=== PATIENT | female | born 1950 | race Caucasian/White ===

== ENCOUNTER 2016-07-29 08:29 | Outpatient (CLI) | payer OTHER | END 2016-07-29 08:30 | disposition home or self-care (01) | LOC: BURLAB 08:29 | PROVIDERS: ATTEND Family Medicine | DX: A09 Infectious gastroenteritis and colitis, unspecified (principal) | CPT/HCPCS: 82272; 83630; 87015; 87045; 87046; 87324; 87449; 87899 ==

== ENCOUNTER 2019-05-22 16:52 | Inpatient (IN) | payer OTHER ==
[2019-05-22] MEDS ORDERED: Meclizine HCl 25 MG TAB PO PRN (19:56)
[2019-05-22] MEDS ORDERED: Nitroglycerin 0.4 MG TAB (25 Tab Bottle) SL PRN (19:56)
[2019-05-22] MEDS ORDERED: Calcium Carbonate 500 MG ChewTAB PO PRN (19:56)
[2019-05-22] MEDS: Polyethylene Glycol 3350 17 GM Packet PO SCH (20:51)
[2019-05-22] MEDS: HYDROcodone/Acetaminophen 5/325 mg Tablet PO PRN (20:51)
[2019-05-22] MEDS: Docusate 100 MG CAP PO SCH (20:53)
[2019-05-22] MEDS: metFORMIN XR 500 MG TAB PO SCH (20:54)
[2019-05-22] MEDS: Atorvastatin Calcium 40 MG TAB PO SCH (20:54)
[2019-05-22] MEDS: Lisinopril 5 MG TAB PO SCH (20:54)
[2019-05-22] MEDS: Lantus 1000 UNITS/10 ML VIAL SC SCH (20:55)
[2019-05-22] MEDS: Cyclobenzaprine 10 MG TAB PO SCH (20:55)
[2019-05-22] MEDS ORDERED: Fluticasone Propionate Nasal Spray 16 gm Bottle NASAL PRN (21:00)
[2019-05-22 22:15] LABS: Bilirubin Negative (Negative); Blood, Urine Small (Negative); Clarity Cloudy (Clear); Glucose, Urine (Dipstick) 500 mg/dL (Negative); Leukocyte Moderate (Negative); Nitrite Negative (Negative); Protein, Urine (Dipstick) Negative (Neg-Trace); Urobilinogen 0.2 mg/dL (Less than 2)
[2019-05-22 22:19] LABS: Bacteria/HPF 4+ HPF (None Seen); Squamous Epithelial None Seen HPF (0-3); WBC/HPF Greater than 50 HPF (0-3)
[2019-05-22] MEDS: Zolpidem Tartrate 5 MG TAB PO SCH (23:28)
[2019-05-23] MEDS: Levothyroxine Sodium 25 MCG TAB PO SCH (05:27)
[2019-05-23] MEDS: Levothyroxine Sodium 100 MCG TAB PO SCH (05:27)
[2019-05-23] MEDS: Lisinopril 5 MG TAB PO SCH ×2 (08:31→20:39)
[2019-05-23] MEDS: Polyethylene Glycol 3350 17 GM Packet PO SCH ×2 (08:31→20:33)
[2019-05-23] MEDS: Gabapentin 100 MG CAP PO SCH (08:32)
[2019-05-23] MEDS: Ferrous Sulfate 325 MG TAB PO SCH ×2 (08:33→16:51)
[2019-05-23] MEDS: Famotidine 20 MG TAB PO SCH (08:33)
[2019-05-23] MEDS: Multivitamin W/ Minerals 1 TAB PO SCH (08:33)
[2019-05-23] MEDS: Spironolactone 25 MG TAB PO SCH (08:33)
[2019-05-23] MEDS: Anastrozole 1 MG TAB PO SCH (08:33)
[2019-05-23] MEDS: Carvedilol 3.125 MG TAB PO SCH ×2 (08:33→16:51)
[2019-05-23] MEDS: Aspirin Chewable 81 MG TAB PO SCH (08:34)
[2019-05-23] MEDS: metFORMIN XR 500 MG TAB PO SCH ×2 (08:34→20:36)
[2019-05-23] MEDS: Cyclobenzaprine 10 MG TAB PO SCH ×2 (08:34→20:38)
[2019-05-23] MEDS: Furosemide 40 MG TAB PO SCH (08:34)
[2019-05-23] MEDS: Docusate 100 MG CAP PO SCH ×2 (08:42→20:38)
[2019-05-23] MEDS: HYDROcodone/Acetaminophen 5/325 mg Tablet PO PRN ×3 (08:47→20:34)
[2019-05-23] MEDS ORDERED: Loratadine 10 MG TAB PO PRN (09:00)
[2019-05-23] MEDS: Lantus 1000 UNITS/10 ML VIAL SC SCH ×2 (10:53→20:29)
[2019-05-23] MEDS: Benzonatate 100 MG CAP PO PRN ×3 (13:10→20:34)
[2019-05-23] MEDS ORDERED: Ciprofloxacin 500 MG TAB PO SCH (14:30)
[2019-05-23] MEDS: Ciprofloxacin 500 MG TAB PO SCH (20:37)
[2019-05-23] MEDS: Atorvastatin Calcium 40 MG TAB PO SCH (20:38)
[2019-05-23] MEDS: Zolpidem Tartrate 5 MG TAB PO SCH (20:39)
[2019-05-23] MEDS ORDERED: FLU VACC TS2019-20(65YR UP)/PF 180 MCG/0.5 ML SYRINGE IM ONE ×2 (20:44→21:00)
[2019-05-24] MEDS: Levothyroxine Sodium 100 MCG TAB PO SCH (05:36)
[2019-05-24] MEDS: Levothyroxine Sodium 25 MCG TAB PO SCH (05:36)
[2019-05-24] MEDS: Ciprofloxacin 500 MG TAB PO SCH ×2 (05:36→20:09)
[2019-05-24] MEDS: Lisinopril 5 MG TAB PO SCH ×2 (08:21→20:12)
[2019-05-24] MEDS: Furosemide 40 MG TAB PO SCH (08:21)
[2019-05-24] MEDS: Multivitamin W/ Minerals 1 TAB PO SCH (08:21)
[2019-05-24] MEDS: Ferrous Sulfate 325 MG TAB PO SCH ×2 (08:22→16:51)
[2019-05-24] MEDS: metFORMIN XR 500 MG TAB PO SCH ×2 (08:22→20:08)
[2019-05-24] MEDS: Famotidine 20 MG TAB PO SCH (08:22)
[2019-05-24] MEDS: Aspirin Chewable 81 MG TAB PO SCH (08:23)
[2019-05-24] MEDS: Spironolactone 25 MG TAB PO SCH (08:23)
[2019-05-24] MEDS: Anastrozole 1 MG TAB PO SCH (08:23)
[2019-05-24] MEDS: Carvedilol 3.125 MG TAB PO SCH ×2 (08:23→16:51)
[2019-05-24] MEDS: Cyclobenzaprine 10 MG TAB PO SCH ×2 (08:24→20:08)
[2019-05-24] MEDS: Docusate 100 MG CAP PO SCH ×2 (08:24→20:10)
[2019-05-24] MEDS: Polyethylene Glycol 3350 17 GM Packet PO SCH ×2 (08:25→20:11)
[2019-05-24] MEDS: Gabapentin 100 MG CAP PO SCH (08:26)
[2019-05-24] MEDS: Lantus 1000 UNITS/10 ML VIAL SC SCH ×2 (08:31→20:10)
[2019-05-24] MEDS: Benzonatate 100 MG CAP PO PRN ×2 (08:36→20:16)
[2019-05-24] MEDS: HYDROcodone/Acetaminophen 5/325 mg Tablet PO PRN ×3 (08:38→20:17)
[2019-05-24] MEDS: Atorvastatin Calcium 40 MG TAB PO SCH (20:08)
[2019-05-24] MEDS: Zolpidem Tartrate 5 MG TAB PO SCH (20:13)
[2019-05-25] MEDS: Ciprofloxacin 500 MG TAB PO SCH ×2 (06:07→21:37)
[2019-05-25] MEDS: Levothyroxine Sodium 25 MCG TAB PO SCH (06:08)
[2019-05-25] MEDS: Levothyroxine Sodium 100 MCG TAB PO SCH (06:08)
[2019-05-25] MEDS: Polyethylene Glycol 3350 17 GM Packet PO SCH ×2 (08:40→21:35)
[2019-05-25] MEDS: Benzonatate 100 MG CAP PO PRN ×2 (08:42→21:38)
[2019-05-25] MEDS: Multivitamin W/ Minerals 1 TAB PO SCH (08:44)
[2019-05-25] MEDS: Gabapentin 100 MG CAP PO SCH (08:44)
[2019-05-25] MEDS: metFORMIN XR 500 MG TAB PO SCH ×2 (08:44→21:37)
[2019-05-25] MEDS: Famotidine 20 MG TAB PO SCH (08:45)
[2019-05-25] MEDS: Anastrozole 1 MG TAB PO SCH (08:45)
[2019-05-25] MEDS: Cyclobenzaprine 10 MG TAB PO SCH ×2 (08:45→21:40)
[2019-05-25] MEDS: Ferrous Sulfate 325 MG TAB PO SCH ×2 (08:45→17:13)
[2019-05-25] MEDS: Furosemide 40 MG TAB PO SCH (08:46)
[2019-05-25] MEDS: Aspirin Chewable 81 MG TAB PO SCH (08:46)
[2019-05-25] MEDS: Docusate 100 MG CAP PO SCH ×2 (08:46→21:41)
[2019-05-25] MEDS: Spironolactone 25 MG TAB PO SCH (08:46)
[2019-05-25] MEDS: Lisinopril 5 MG TAB PO SCH ×2 (08:47→21:41)
[2019-05-25] MEDS: Carvedilol 3.125 MG TAB PO SCH ×2 (08:47→17:13)
[2019-05-25] MEDS: HYDROcodone/Acetaminophen 5/325 mg Tablet PO PRN ×3 (08:52→21:38)
[2019-05-25] MEDS: Lantus 1000 UNITS/10 ML VIAL SC SCH ×2 (08:56→21:32)
[2019-05-25 11:45] LABS: Anion Gap 18 mmol/L (10-20); BUN (Urea Nitrogen) 20 mg/dL (9.8-20.1); Calc. Creatinine Clearance 70 mL/min (70-130); Calcium 9.4 mg/dL (7.8-10.44); Carbon Dioxide 26 mmol/L (23-31); Chloride 100 mmol/L (98-107); Estimated GFR-MDRD 49; Glucose 145 mg/dL (80-115); Potassium 4.7 mmol/L (3.5-5.1); Sodium 139 mmol/L (136-145)
[2019-05-25] MEDS: Atorvastatin Calcium 40 MG TAB PO SCH (21:37)
[2019-05-25] MEDS: Zolpidem Tartrate 5 MG TAB PO SCH (21:38)
[2019-05-26] MEDS: Levothyroxine Sodium 100 MCG TAB PO SCH (05:56)
[2019-05-26] MEDS: Levothyroxine Sodium 25 MCG TAB PO SCH (05:56)
[2019-05-26] MEDS: Ciprofloxacin 500 MG TAB PO SCH ×2 (05:56→21:46)
[2019-05-26] MEDS: Polyethylene Glycol 3350 17 GM Packet PO SCH ×2 (08:49→21:59)
[2019-05-26] MEDS: Benzonatate 100 MG CAP PO PRN ×2 (08:50→21:48)
[2019-05-26] MEDS: Multivitamin W/ Minerals 1 TAB PO SCH (08:50)
[2019-05-26] MEDS: Aspirin Chewable 81 MG TAB PO SCH (08:51)
[2019-05-26] MEDS: Furosemide 40 MG TAB PO SCH (08:52)
[2019-05-26] MEDS: Ferrous Sulfate 325 MG TAB PO SCH ×2 (08:52→17:24)
[2019-05-26] MEDS: Spironolactone 25 MG TAB PO SCH (08:52)
[2019-05-26] MEDS: Anastrozole 1 MG TAB PO SCH (08:56)
[2019-05-26] MEDS: Docusate 100 MG CAP PO SCH ×2 (08:56→21:48)
[2019-05-26] MEDS: metFORMIN XR 500 MG TAB PO SCH ×2 (08:56→21:47)
[2019-05-26] MEDS: Cyclobenzaprine 10 MG TAB PO SCH ×2 (08:56→21:46)
[2019-05-26] MEDS: Carvedilol 3.125 MG TAB PO SCH ×2 (08:57→17:24)
[2019-05-26] MEDS: Lisinopril 5 MG TAB PO SCH ×2 (08:57→21:45)
[2019-05-26] MEDS: Gabapentin 100 MG CAP PO SCH (08:57)
[2019-05-26] MEDS: Famotidine 20 MG TAB PO SCH (08:57)
[2019-05-26] MEDS: Lantus 1000 UNITS/10 ML VIAL SC SCH ×2 (08:59→21:44)
[2019-05-26] MEDS: HYDROcodone/Acetaminophen 5/325 mg Tablet PO PRN ×2 (12:25→21:49)
[2019-05-26] MEDS: Zolpidem Tartrate 5 MG TAB PO SCH (21:47)
[2019-05-26] MEDS: Atorvastatin Calcium 40 MG TAB PO SCH (21:48)
[2019-05-27] MEDS: Levothyroxine Sodium 100 MCG TAB PO SCH (06:12)
[2019-05-27] MEDS: Ciprofloxacin 500 MG TAB PO SCH ×2 (06:12→20:59)
[2019-05-27] MEDS: Levothyroxine Sodium 25 MCG TAB PO SCH (06:12)
[2019-05-27] MEDS: Polyethylene Glycol 3350 17 GM Packet PO SCH ×2 (08:44→20:55)
[2019-05-27] MEDS: Lantus 1000 UNITS/10 ML VIAL SC SCH ×2 (08:46→20:56)
[2019-05-27] MEDS: Anastrozole 1 MG TAB PO SCH (08:47)
[2019-05-27] MEDS: Cyclobenzaprine 10 MG TAB PO SCH ×2 (08:47→20:58)
[2019-05-27] MEDS: Gabapentin 100 MG CAP PO SCH (08:48)
[2019-05-27] MEDS: metFORMIN XR 500 MG TAB PO SCH ×2 (08:48→21:00)
[2019-05-27] MEDS: Docusate 100 MG CAP PO SCH ×2 (08:48→21:00)
[2019-05-27] MEDS: Aspirin Chewable 81 MG TAB PO SCH (08:48)
[2019-05-27] MEDS: Ferrous Sulfate 325 MG TAB PO SCH ×2 (08:48→17:40)
[2019-05-27] MEDS: Multivitamin W/ Minerals 1 TAB PO SCH (08:48)
[2019-05-27] MEDS: Lisinopril 5 MG TAB PO SCH ×2 (08:52→21:01)
[2019-05-27] MEDS: Furosemide 40 MG TAB PO SCH (08:52)
[2019-05-27] MEDS: Carvedilol 3.125 MG TAB PO SCH ×2 (08:53→17:40)
[2019-05-27] MEDS: Famotidine 20 MG TAB PO SCH (08:53)
[2019-05-27] MEDS: Spironolactone 25 MG TAB PO SCH (08:53)
[2019-05-27] MEDS: HYDROcodone/Acetaminophen 5/325 mg Tablet PO PRN ×2 (13:14→21:01)
[2019-05-27] MEDS: Benzonatate 100 MG CAP PO PRN ×2 (13:16→20:58)
[2019-05-27] MEDS: Zolpidem Tartrate 5 MG TAB PO SCH (20:58)
[2019-05-27] MEDS: Atorvastatin Calcium 40 MG TAB PO SCH (21:00)
[2019-05-28] MEDS: Ciprofloxacin 500 MG TAB PO SCH (05:42)
[2019-05-28] MEDS: Levothyroxine Sodium 100 MCG TAB PO SCH (05:42)
[2019-05-28] MEDS: Levothyroxine Sodium 25 MCG TAB PO SCH (05:42)
[2019-05-28] MEDS: Polyethylene Glycol 3350 17 GM Packet PO SCH ×2 (08:44→20:54)
[2019-05-28] MEDS: Ferrous Sulfate 325 MG TAB PO SCH ×2 (08:45→17:17)
[2019-05-28] MEDS: Lisinopril 5 MG TAB PO SCH ×2 (08:46→20:52)
[2019-05-28] MEDS: Gabapentin 100 MG CAP PO SCH (08:46)
[2019-05-28] MEDS: Docusate 100 MG CAP PO SCH ×2 (08:46→20:54)
[2019-05-28] MEDS: Anastrozole 1 MG TAB PO SCH (08:46)
[2019-05-28] MEDS: Cyclobenzaprine 10 MG TAB PO SCH ×2 (08:46→20:51)
[2019-05-28] MEDS: Multivitamin W/ Minerals 1 TAB PO SCH (08:46)
[2019-05-28] MEDS: metFORMIN XR 500 MG TAB PO SCH ×2 (08:46→20:51)
[2019-05-28] MEDS: Carvedilol 3.125 MG TAB PO SCH ×2 (08:46→17:17)
[2019-05-28] MEDS: Furosemide 40 MG TAB PO SCH (08:47)
[2019-05-28] MEDS: Famotidine 20 MG TAB PO SCH (08:48)
[2019-05-28] MEDS: Spironolactone 25 MG TAB PO SCH (08:48)
[2019-05-28] MEDS: Aspirin Chewable 81 MG TAB PO SCH (08:48)
[2019-05-28] MEDS: Lantus 1000 UNITS/10 ML VIAL SC SCH ×2 (08:51→20:59)
[2019-05-28] MEDS: HYDROcodone/Acetaminophen 5/325 mg Tablet PO PRN ×2 (08:54→17:16)
[2019-05-28] MEDS: Benzonatate 100 MG CAP PO PRN (17:17)
[2019-05-28] MEDS: Zolpidem Tartrate 5 MG TAB PO SCH (20:51)
[2019-05-28] MEDS: Atorvastatin Calcium 40 MG TAB PO SCH (20:53)
[2019-05-29] MEDS: Levothyroxine Sodium 25 MCG TAB PO SCH (05:38)
[2019-05-29] MEDS: Levothyroxine Sodium 100 MCG TAB PO SCH (05:38)
[2019-05-29 07:06] LABS: Anion Gap 17 mmol/L (10-20); BUN (Urea Nitrogen) 19 mg/dL (9.8-20.1); Calc. Creatinine Clearance 84 mL/min (70-130); Calcium 9.8 mg/dL (7.8-10.44); Carbon Dioxide 27 mmol/L (23-31); Chloride 105 mmol/L (98-107); Estimated GFR-MDRD 62; Potassium 3.9 mmol/L (3.5-5.1); Sodium 145 mmol/L (136-145)
[2019-05-29 07:52] LABS: Glucose 59 mg/dL (80-115)
[2019-05-29] MEDS: Lisinopril 5 MG TAB PO SCH ×2 (08:05→20:34)
[2019-05-29] MEDS: Polyethylene Glycol 3350 17 GM Packet PO SCH ×2 (08:05→20:33)
[2019-05-29] MEDS: Aspirin Chewable 81 MG TAB PO SCH (08:06)
[2019-05-29] MEDS: Multivitamin W/ Minerals 1 TAB PO SCH (08:06)
[2019-05-29] MEDS: Ferrous Sulfate 325 MG TAB PO SCH ×2 (08:06→17:11)
[2019-05-29] MEDS: Docusate 100 MG CAP PO SCH ×2 (08:06→20:36)
[2019-05-29] MEDS: Cyclobenzaprine 10 MG TAB PO SCH ×2 (08:06→21:10)
[2019-05-29] MEDS: Furosemide 40 MG TAB PO SCH (08:07)
[2019-05-29] MEDS: Spironolactone 25 MG TAB PO SCH (08:07)
[2019-05-29] MEDS: Anastrozole 1 MG TAB PO SCH (08:07)
[2019-05-29] MEDS: Carvedilol 3.125 MG TAB PO SCH ×2 (08:07→17:11)
[2019-05-29] MEDS: Gabapentin 100 MG CAP PO SCH (08:07)
[2019-05-29] MEDS: metFORMIN XR 500 MG TAB PO SCH ×2 (08:07→20:33)
[2019-05-29] MEDS: Famotidine 20 MG TAB PO SCH (08:07)
[2019-05-29] MEDS: Lantus 1000 UNITS/10 ML VIAL SC SCH ×2 (08:08→21:24)
[2019-05-29] MEDS: HYDROcodone/Acetaminophen 5/325 mg Tablet PO PRN ×2 (11:57→17:19)
[2019-05-29] MEDS: Atorvastatin Calcium 40 MG TAB PO SCH (20:33)
[2019-05-29] MEDS: Zolpidem Tartrate 5 MG TAB PO SCH (21:10)
[2019-05-29] MEDS ORDERED: Lantus 1000 UNITS/10 ML VIAL SC SCH (21:30)
[2019-05-30] MEDS: Levothyroxine Sodium 25 MCG TAB PO SCH (05:53)
[2019-05-30] MEDS: Levothyroxine Sodium 100 MCG TAB PO SCH (05:53)
[2019-05-30] MEDS: Multivitamin W/ Minerals 1 TAB PO SCH (08:30)
[2019-05-30] MEDS: Polyethylene Glycol 3350 17 GM Packet PO SCH ×2 (08:30→21:18)
[2019-05-30] MEDS: Ferrous Sulfate 325 MG TAB PO SCH ×2 (08:32→17:47)
[2019-05-30] MEDS: Spironolactone 25 MG TAB PO SCH (08:33)
[2019-05-30] MEDS: Carvedilol 3.125 MG TAB PO SCH ×2 (08:33→17:48)
[2019-05-30] MEDS: Furosemide 40 MG TAB PO SCH (08:33)
[2019-05-30] MEDS: Aspirin Chewable 81 MG TAB PO SCH (08:33)
[2019-05-30] MEDS: Famotidine 20 MG TAB PO SCH (08:33)
[2019-05-30] MEDS: metFORMIN XR 500 MG TAB PO SCH ×2 (08:34→21:19)
[2019-05-30] MEDS: Gabapentin 100 MG CAP PO SCH (08:34)
[2019-05-30] MEDS: Docusate 100 MG CAP PO SCH ×2 (08:34→21:19)
[2019-05-30] MEDS: Anastrozole 1 MG TAB PO SCH (08:34)
[2019-05-30] MEDS: Cyclobenzaprine 10 MG TAB PO SCH ×2 (08:35→21:19)
[2019-05-30] MEDS: Lisinopril 5 MG TAB PO SCH ×2 (08:39→21:19)
[2019-05-30] MEDS: Lantus 1000 UNITS/10 ML VIAL SC SCH ×2 (08:40→21:21)
[2019-05-30] MEDS: HYDROcodone/Acetaminophen 5/325 mg Tablet PO PRN (08:45)
[2019-05-30 10:37] VITALS: BMI 34.6
[2019-05-30] MEDS: Benzonatate 100 MG CAP PO PRN (17:47)
[2019-05-30] MEDS ORDERED: Atorvastatin Calcium 40 MG TAB PO SCH (20:30)
[2019-05-30] MEDS: Zolpidem Tartrate 5 MG TAB PO SCH (21:19)
[2019-05-30] MEDS: Atorvastatin Calcium 40 MG TAB PO SCH (21:19)
[2019-05-31] MEDS: Levothyroxine Sodium 25 MCG TAB PO SCH (05:35)
[2019-05-31] MEDS: Levothyroxine Sodium 100 MCG TAB PO SCH (05:35)
[2019-05-31] MEDS: Multivitamin W/ Minerals 1 TAB PO SCH (08:02)
[2019-05-31] MEDS: Cyclobenzaprine 10 MG TAB PO SCH ×2 (08:02→20:20)
[2019-05-31] MEDS: metFORMIN XR 500 MG TAB PO SCH ×2 (08:02→20:17)
[2019-05-31] MEDS: Anastrozole 1 MG TAB PO SCH (08:04)
[2019-05-31] MEDS: Lisinopril 5 MG TAB PO SCH ×2 (08:04→20:18)
[2019-05-31] MEDS: Famotidine 20 MG TAB PO SCH (08:04)
[2019-05-31] MEDS: Spironolactone 25 MG TAB PO SCH (08:04)
[2019-05-31] MEDS: Aspirin Chewable 81 MG TAB PO SCH (08:06)
[2019-05-31] MEDS: Gabapentin 100 MG CAP PO SCH (08:06)
[2019-05-31] MEDS: Ferrous Sulfate 325 MG TAB PO SCH ×2 (08:06→17:47)
[2019-05-31] MEDS: Carvedilol 3.125 MG TAB PO SCH ×2 (08:07→17:47)
[2019-05-31] MEDS: Docusate 100 MG CAP PO SCH ×2 (08:12→20:20)
[2019-05-31] MEDS: Furosemide 40 MG TAB PO SCH (08:12)
[2019-05-31] MEDS: Lantus 1000 UNITS/10 ML VIAL SC SCH ×2 (08:13→20:24)
[2019-05-31] MEDS: Polyethylene Glycol 3350 17 GM Packet PO SCH ×2 (08:13→20:21)
[2019-05-31] MEDS: HYDROcodone/Acetaminophen 5/325 mg Tablet PO PRN ×2 (12:46→20:19)
[2019-05-31] MEDS: Atorvastatin Calcium 40 MG TAB PO SCH (20:17)
[2019-05-31] MEDS: Zolpidem Tartrate 5 MG TAB PO SCH (20:17)
[2019-06-01] MEDS: Levothyroxine Sodium 25 MCG TAB PO SCH ×2 (05:36→05:37)
[2019-06-01] MEDS: Levothyroxine Sodium 100 MCG TAB PO SCH (05:37)
[2019-06-01 05:53] VITALS: TEMP 98
[2019-06-01] MEDS: Lantus 1000 UNITS/10 ML VIAL SC SCH (08:32)
[2019-06-01] MEDS: Ferrous Sulfate 325 MG TAB PO SCH (08:35)
[2019-06-01] MEDS: Spironolactone 25 MG TAB PO SCH (08:35)
[2019-06-01] MEDS: Multivitamin W/ Minerals 1 TAB PO SCH (08:35)
[2019-06-01] MEDS: metFORMIN XR 500 MG TAB PO SCH (08:36)
[2019-06-01] MEDS: Carvedilol 3.125 MG TAB PO SCH (08:37)
[2019-06-01] MEDS: Lisinopril 5 MG TAB PO SCH (08:37)
[2019-06-01] MEDS: Famotidine 20 MG TAB PO SCH (08:38)
[2019-06-01] MEDS: Furosemide 40 MG TAB PO SCH (08:39)
[2019-06-01] MEDS: Aspirin Chewable 81 MG TAB PO SCH (08:39)
[2019-06-01] MEDS: Gabapentin 100 MG CAP PO SCH (08:40)
[2019-06-01] MEDS: Cyclobenzaprine 10 MG TAB PO SCH (08:40)
[2019-06-01] MEDS: Anastrozole 1 MG TAB PO SCH (08:40)
[2019-06-01] MEDS: Docusate 100 MG CAP PO SCH (08:41)
[2019-06-01] MEDS: Polyethylene Glycol 3350 17 GM Packet PO SCH (08:41)
[2019-06-01 08:50] VITALS: BP 140/61
== END 2019-06-01 11:30 | disposition home or self-care (01) | DRG 949 ==
LOC: BURMED 18:40
PROVIDERS: ADMIT Family Medicine; ATTEND Family Medicine
DX: Z48.812 Encounter for surgical aftercare following surgery on the circulatory system (principal); I13.0 Hypertensive heart and chronic kidney disease with heart failure and stage 1 through stage 4 chronic kidney disease, or unspecified chronic kidney disease; D62 Acute posthemorrhagic anemia; N17.9 Acute kidney failure, unspecified; Z96.653 Presence of artificial knee joint, bilateral; D72.829 Elevated white blood cell count, unspecified; M54.2 Cervicalgia; G89.29 Other chronic pain; I11.0 Hypertensive heart disease with heart failure; N18.3 Chronic kidney disease, stage 3 (moderate); I25.5 Ischemic cardiomyopathy; E11.22 Type 2 diabetes mellitus with diabetic chronic kidney disease; E11.649 Type 2 diabetes mellitus with hypoglycemia without coma; I44.7 Left bundle-branch block, unspecified; E78.00 Pure hypercholesterolemia, unspecified; Z90.13 Acquired absence of bilateral breasts and nipples; Z95.1 Presence of aortocoronary bypass graft; G47.00 Insomnia, unspecified
CPT/HCPCS: 36415; 36416; 80048; 81003; 81015; 90471; 90662; G0008; J1815

== ENCOUNTER 2019-08-08 08:36 | Outpatient (CLI) | payer OTHER ==
[2019-08-08 09:05] LABS: Anion Gap 17 mmol/L (10-20); BUN (Urea Nitrogen) 33 mg/dL (9.8-20.1); Calc. Creatinine Clearance 0 mL/min (70-130); Calcium 9.6 mg/dL (7.8-10.44); Carbon Dioxide 28 mmol/L (23-31); Chloride 101 mmol/L (98-107); Estimated GFR-MDRD 46; Glucose 184 mg/dL (80-115); Potassium 3.9 mmol/L (3.5-5.1); Sodium 142 mmol/L (136-145)
--- NOTE | 2019-08-08 17:04 | RAD ---
RIGHT HIP TWO VIEWS: 08/08/19 No fracture or area of bony destruction was seen. The joint space is normal in width. Some bony spurr ing is beginning around the joint but is mild in degree. The adjacent pubic ring appears intact. The re is irregularity of the lesser trochanter indicating there may have been old trauma to the attachme nt of the psoas major muscle here. IMPRESSION: Minor degenerative change. POS: HOME
== END 2019-08-08 08:37 | disposition home or self-care (01) ==
LOC: BURRAD 08:36
PROVIDERS: ATTEND Family Medicine
DX: I42.9 Cardiomyopathy, unspecified (principal); M25.551 Pain in right hip; M16.11 Unilateral primary osteoarthritis, right hip
CPT/HCPCS: 36415; 80048

== ENCOUNTER 2020-02-15 13:36 | Inpatient (IN) | payer OTHER, MEDICARE ==
[2020-02-15 16:37] VITALS: BMI 33.5
[2020-02-15] MEDS ORDERED: Nitroglycerin 0.4 MG TAB (25 Tab Bottle) SL PRN (16:55)
[2020-02-15] MEDS ORDERED: Meclizine HCl 25 MG TAB PO PRN (16:55)
[2020-02-15] MEDS ORDERED: Benzonatate 100 MG CAP PO PRN (16:55)
[2020-02-15] MEDS ORDERED: Dextrose 50% Abboject 50 ML SYRINGE SLOW IVP PRN (16:58)
[2020-02-15] MEDS ORDERED: Dextrose 5% in Water 1,000 ML IV PRN (16:58)
[2020-02-15] MEDS: Ferrous Sulfate 325 MG TAB PO SCH (17:48)
[2020-02-15] MEDS: Aspirin Chewable 81 MG TAB PO SCH (17:48)
[2020-02-15] MEDS: HumaLOG 300 UNITS/3 ML VIAL SC PRN ×2 (17:48→22:14)
[2020-02-15] MEDS: Carvedilol 3.125 MG TAB PO SCH (17:51)
[2020-02-15] MEDS ORDERED: Acetaminophen 500 MG TAB PO SCH (18:00)
[2020-02-15] MEDS: Zolpidem Tartrate 5 MG TAB PO SCH (21:12)
[2020-02-15] MEDS: metFORMIN XR 500 MG TAB PO SCH (21:12)
[2020-02-15] MEDS: Ascorbic Acid 500 mg Chewable Tablet PO SCH (21:12)
[2020-02-15] MEDS: Cholecalciferol 1,000 UNITS (25 MCG) TAB PO SCH (21:13)
[2020-02-15] MEDS: Atorvastatin Calcium 40 MG TAB PO SCH (21:13)
[2020-02-15] MEDS: Gabapentin 300 MG CAP PO SCH (21:13)
[2020-02-15] MEDS: Cyclobenzaprine 10 MG TAB PO SCH (21:13)
[2020-02-15] MEDS: Polyethylene Glycol 3350 17 GM Packet PO SCH (21:14)
[2020-02-15] MEDS ORDERED: HYDROcodone/Acetaminophen 5/325 mg Tablet PO SCH (22:15)
[2020-02-16] MEDS: traMADol HCl 50 MG TAB PO SCH ×5 (00:32→23:55)
[2020-02-16] MEDS: Acetaminophen 500 MG TAB PO SCH ×5 (00:32→23:56)
[2020-02-16] MEDS: Levothyroxine Sodium 25 MCG TAB PO SCH (05:52)
[2020-02-16] MEDS: Levothyroxine Sodium 112 MCG TAB PO SCH (05:52)
[2020-02-16] MEDS ORDERED: Lantus 1000 UNITS/10 ML VIAL SC SCH (09:00)
[2020-02-16] MEDS ORDERED: Levothyroxine Sodium 100 MCG TAB PO SCH (09:00)
[2020-02-16] MEDS: Triamterene/Hydrochlorothiazide 37.5 mg/25 mg Tablet PO SCH (10:20)
[2020-02-16] MEDS: Multivitamin W/ Minerals 1 TAB PO SCH (10:20)
[2020-02-16] MEDS: Ubidecarenone 50 MG CAP PO SCH (10:20)
[2020-02-16] MEDS: Gabapentin 300 MG CAP PO SCH ×2 (10:21→20:39)
[2020-02-16] MEDS: Carvedilol 3.125 MG TAB PO SCH ×2 (10:21→17:37)
[2020-02-16] MEDS: metFORMIN XR 500 MG TAB PO SCH ×2 (10:21→20:40)
[2020-02-16] MEDS: Ascorbic Acid 500 mg Chewable Tablet PO SCH ×2 (10:22→20:41)
[2020-02-16] MEDS: Furosemide 20 MG TAB PO SCH (10:22)
[2020-02-16] MEDS: Spironolactone 25 MG TAB PO SCH (10:22)
[2020-02-16] MEDS: Cholecalciferol 1,000 UNITS (25 MCG) TAB PO SCH ×2 (10:22→20:40)
[2020-02-16] MEDS: Loratadine 10 MG TAB PO SCH (10:23)
[2020-02-16] MEDS: Anastrozole 1 MG TAB PO SCH (10:23)
[2020-02-16] MEDS: Ferrous Sulfate 325 MG TAB PO SCH ×2 (10:23→17:37)
[2020-02-16] MEDS: Calcium Carbonate + Vit D 500 MG TAB PO SCH (10:30)
[2020-02-16] MEDS: HumaLOG 300 UNITS/3 ML VIAL SC PRN ×4 (10:35→20:52)
[2020-02-16] MEDS: Aspirin Chewable 81 MG TAB PO SCH (17:38)
[2020-02-16] MEDS: Cyclobenzaprine 10 MG TAB PO SCH (20:40)
[2020-02-16] MEDS: Zolpidem Tartrate 5 MG TAB PO SCH (20:40)
[2020-02-16] MEDS: Atorvastatin Calcium 40 MG TAB PO SCH (20:41)
[2020-02-16] MEDS: Polyethylene Glycol 3350 17 GM Packet PO SCH (20:41)
[2020-02-17] MEDS: Acetaminophen 500 MG TAB PO SCH ×4 (05:37→23:51)
[2020-02-17] MEDS: Levothyroxine Sodium 25 MCG TAB PO SCH (05:37)
[2020-02-17] MEDS: Levothyroxine Sodium 112 MCG TAB PO SCH (05:37)
[2020-02-17] MEDS: traMADol HCl 50 MG TAB PO SCH ×4 (05:38→23:52)
[2020-02-17] MEDS: Cholecalciferol 1,000 UNITS (25 MCG) TAB PO SCH ×2 (09:10→20:51)
[2020-02-17] MEDS: Ubidecarenone 50 MG CAP PO SCH (09:11)
[2020-02-17] MEDS: Loratadine 10 MG TAB PO SCH (09:11)
[2020-02-17] MEDS: Anastrozole 1 MG TAB PO SCH (09:11)
[2020-02-17] MEDS: Gabapentin 300 MG CAP PO SCH ×2 (09:11→20:51)
[2020-02-17] MEDS: Triamterene/Hydrochlorothiazide 37.5 mg/25 mg Tablet PO SCH (09:12)
[2020-02-17] MEDS: metFORMIN XR 500 MG TAB PO SCH ×2 (09:12→20:50)
[2020-02-17] MEDS: Furosemide 20 MG TAB PO SCH (09:12)
[2020-02-17] MEDS: Carvedilol 3.125 MG TAB PO SCH ×2 (09:13→16:21)
[2020-02-17] MEDS: Ferrous Sulfate 325 MG TAB PO SCH ×2 (09:13→16:21)
[2020-02-17] MEDS: Spironolactone 25 MG TAB PO SCH (09:13)
[2020-02-17] MEDS: Ascorbic Acid 500 mg Chewable Tablet PO SCH ×2 (09:13→20:51)
[2020-02-17] MEDS: Multivitamin W/ Minerals 1 TAB PO SCH (09:13)
[2020-02-17] MEDS: Calcium Carbonate + Vit D 500 MG TAB PO SCH (09:15)
[2020-02-17] MEDS: HumaLOG 300 UNITS/3 ML VIAL SC PRN ×4 (09:17→20:49)
[2020-02-17] MEDS: Lantus 1000 UNITS/10 ML VIAL SC SCH (09:21)
[2020-02-17] MEDS: Aspirin Chewable 81 MG TAB PO SCH (16:21)
[2020-02-17] MEDS: Cyclobenzaprine 10 MG TAB PO SCH (20:50)
[2020-02-17] MEDS: Atorvastatin Calcium 40 MG TAB PO SCH (20:52)
[2020-02-17] MEDS: Zolpidem Tartrate 5 MG TAB PO SCH (20:52)
[2020-02-17] MEDS: Polyethylene Glycol 3350 17 GM Packet PO SCH (20:53)
[2020-02-18] MEDS: Levothyroxine Sodium 25 MCG TAB PO SCH (05:55)
[2020-02-18] MEDS: Levothyroxine Sodium 112 MCG TAB PO SCH (05:56)
[2020-02-18] MEDS: traMADol HCl 50 MG TAB PO SCH ×4 (05:56→23:49)
[2020-02-18] MEDS: Acetaminophen 500 MG TAB PO SCH ×4 (05:57→23:49)
[2020-02-18] MEDS: Triamterene/Hydrochlorothiazide 37.5 mg/25 mg Tablet PO SCH (09:02)
[2020-02-18] MEDS: Ubidecarenone 50 MG CAP PO SCH (09:02)
[2020-02-18] MEDS: Lantus 1000 UNITS/10 ML VIAL SC SCH (09:02)
[2020-02-18] MEDS: Carvedilol 3.125 MG TAB PO SCH ×2 (09:02→17:25)
[2020-02-18] MEDS: metFORMIN XR 500 MG TAB PO SCH ×2 (09:02→20:08)
[2020-02-18] MEDS: Spironolactone 25 MG TAB PO SCH (09:03)
[2020-02-18] MEDS: Furosemide 20 MG TAB PO SCH (09:03)
[2020-02-18] MEDS: Cholecalciferol 1,000 UNITS (25 MCG) TAB PO SCH ×2 (09:03→20:09)
[2020-02-18] MEDS: Ferrous Sulfate 325 MG TAB PO SCH ×2 (09:03→17:25)
[2020-02-18] MEDS: Multivitamin W/ Minerals 1 TAB PO SCH (09:03)
[2020-02-18] MEDS: Loratadine 10 MG TAB PO SCH (09:03)
[2020-02-18] MEDS: Gabapentin 300 MG CAP PO SCH ×2 (09:03→20:10)
[2020-02-18] MEDS: Ascorbic Acid 500 mg Chewable Tablet PO SCH ×2 (09:04→20:09)
[2020-02-18] MEDS: Calcium Carbonate + Vit D 500 MG TAB PO SCH (09:04)
[2020-02-18] MEDS: Anastrozole 1 MG TAB PO SCH (09:04)
[2020-02-18] MEDS: HumaLOG 300 UNITS/3 ML VIAL SC PRN ×3 (13:11→20:13)
[2020-02-18] MEDS: Aspirin Chewable 81 MG TAB PO SCH (17:24)
[2020-02-18] MEDS: Cyclobenzaprine 10 MG TAB PO SCH (20:09)
[2020-02-18] MEDS: Atorvastatin Calcium 40 MG TAB PO SCH (20:11)
[2020-02-18] MEDS: Polyethylene Glycol 3350 17 GM Packet PO SCH (20:12)
[2020-02-18] MEDS: Zolpidem Tartrate 5 MG TAB PO SCH (20:19)
[2020-02-19] MEDS: traMADol HCl 50 MG TAB PO SCH ×3 (06:19→16:23)
[2020-02-19] MEDS: Levothyroxine Sodium 25 MCG TAB PO SCH (06:19)
[2020-02-19] MEDS: Acetaminophen 500 MG TAB PO SCH ×3 (06:19→16:24)
[2020-02-19] MEDS: Levothyroxine Sodium 112 MCG TAB PO SCH (06:19)
[2020-02-19] MEDS: Cholecalciferol 1,000 UNITS (25 MCG) TAB PO SCH ×2 (09:07→20:34)
[2020-02-19] MEDS: metFORMIN XR 500 MG TAB PO SCH ×2 (09:09→20:34)
[2020-02-19] MEDS: Gabapentin 300 MG CAP PO SCH ×2 (09:09→20:34)
[2020-02-19] MEDS: Ubidecarenone 50 MG CAP PO SCH (09:10)
[2020-02-19] MEDS: Multivitamin W/ Minerals 1 TAB PO SCH (09:11)
[2020-02-19] MEDS: Ascorbic Acid 500 mg Chewable Tablet PO SCH ×2 (09:11→20:34)
[2020-02-19] MEDS: Ferrous Sulfate 325 MG TAB PO SCH ×2 (09:12→16:22)
[2020-02-19] MEDS: Spironolactone 25 MG TAB PO SCH (09:13)
[2020-02-19] MEDS: Furosemide 20 MG TAB PO SCH (09:13)
[2020-02-19] MEDS: Anastrozole 1 MG TAB PO SCH (09:13)
[2020-02-19] MEDS: Loratadine 10 MG TAB PO SCH (09:14)
[2020-02-19] MEDS: Carvedilol 3.125 MG TAB PO SCH ×2 (09:15→16:24)
[2020-02-19] MEDS: Lantus 1000 UNITS/10 ML VIAL SC SCH (09:21)
[2020-02-19] MEDS: Calcium Carbonate + Vit D 500 MG TAB PO SCH (09:22)
[2020-02-19] MEDS: Triamterene/Hydrochlorothiazide 37.5 mg/25 mg Tablet PO SCH (09:30)
[2020-02-19] MEDS: HumaLOG 300 UNITS/3 ML VIAL SC PRN (12:53)
[2020-02-19] MEDS: Aspirin Chewable 81 MG TAB PO SCH (16:24)
[2020-02-19] MEDS: Cyclobenzaprine 10 MG TAB PO SCH (20:34)
[2020-02-19] MEDS: Atorvastatin Calcium 40 MG TAB PO SCH (20:34)
[2020-02-19] MEDS: Polyethylene Glycol 3350 17 GM Packet PO SCH (20:35)
[2020-02-19] MEDS: Zolpidem Tartrate 5 MG TAB PO SCH (20:36)
[2020-02-19] MEDS ORDERED: HYDROcodone/Acetaminophen 5/325 mg Tablet PO SCH (21:30)
[2020-02-19] MEDS: traMADol HCl 50 MG TAB PO PRN (21:39)
[2020-02-20] MEDS: Acetaminophen 500 MG TAB PO SCH ×5 (00:33→23:22)
[2020-02-20] MEDS: traMADol HCl 50 MG TAB PO SCH ×5 (00:35→23:22)
[2020-02-20] MEDS: Levothyroxine Sodium 112 MCG TAB PO SCH (05:07)
[2020-02-20] MEDS: Levothyroxine Sodium 25 MCG TAB PO SCH (05:07)
[2020-02-20] MEDS: Ubidecarenone 50 MG CAP PO SCH (08:48)
[2020-02-20] MEDS: Anastrozole 1 MG TAB PO SCH (08:48)
[2020-02-20] MEDS: metFORMIN XR 500 MG TAB PO SCH ×2 (08:48→20:57)
[2020-02-20] MEDS: Triamterene/Hydrochlorothiazide 37.5 mg/25 mg Tablet PO SCH (08:48)
[2020-02-20] MEDS: Gabapentin 300 MG CAP PO SCH ×2 (08:49→20:57)
[2020-02-20] MEDS: Cholecalciferol 1,000 UNITS (25 MCG) TAB PO SCH ×2 (08:49→20:58)
[2020-02-20] MEDS: Ascorbic Acid 500 mg Chewable Tablet PO SCH ×2 (08:49→20:58)
[2020-02-20] MEDS: Loratadine 10 MG TAB PO SCH (08:49)
[2020-02-20] MEDS: Multivitamin W/ Minerals 1 TAB PO SCH (08:49)
[2020-02-20] MEDS: Ferrous Sulfate 325 MG TAB PO SCH ×2 (08:49→17:46)
[2020-02-20] MEDS: Spironolactone 25 MG TAB PO SCH (08:49)
[2020-02-20] MEDS: Carvedilol 3.125 MG TAB PO SCH ×2 (08:49→17:46)
[2020-02-20] MEDS: Calcium Carbonate + Vit D 500 MG TAB PO SCH (08:50)
[2020-02-20] MEDS: Furosemide 20 MG TAB PO SCH (08:50)
[2020-02-20] MEDS: Lantus 1000 UNITS/10 ML VIAL SC SCH (08:53)
[2020-02-20] MEDS: HumaLOG 300 UNITS/3 ML VIAL SC PRN ×2 (12:59→20:56)
[2020-02-20] MEDS: Aspirin Chewable 81 MG TAB PO SCH (17:46)
[2020-02-20] MEDS: Atorvastatin Calcium 40 MG TAB PO SCH (20:57)
[2020-02-20] MEDS: Zolpidem Tartrate 5 MG TAB PO SCH (20:58)
[2020-02-20] MEDS: Cyclobenzaprine 10 MG TAB PO SCH (20:58)
[2020-02-20] MEDS: Polyethylene Glycol 3350 17 GM Packet PO SCH (20:59)
[2020-02-21] MEDS: Acetaminophen 500 MG TAB PO SCH ×4 (05:41→23:59)
[2020-02-21] MEDS: traMADol HCl 50 MG TAB PO SCH ×4 (05:42→23:58)
[2020-02-21] MEDS: Levothyroxine Sodium 112 MCG TAB PO SCH (05:43)
[2020-02-21] MEDS: Levothyroxine Sodium 25 MCG TAB PO SCH (05:43)
[2020-02-21] MEDS: Lantus 1000 UNITS/10 ML VIAL SC SCH (09:40)
[2020-02-21] MEDS: Ubidecarenone 50 MG CAP PO SCH (09:44)
[2020-02-21] MEDS: Triamterene/Hydrochlorothiazide 37.5 mg/25 mg Tablet PO SCH (09:45)
[2020-02-21] MEDS: metFORMIN XR 500 MG TAB PO SCH ×3 (09:46→21:30)
[2020-02-21] MEDS: Cholecalciferol 1,000 UNITS (25 MCG) TAB PO SCH ×2 (09:46→21:31)
[2020-02-21] MEDS: Loratadine 10 MG TAB PO SCH (09:47)
[2020-02-21] MEDS: Multivitamin W/ Minerals 1 TAB PO SCH (09:47)
[2020-02-21] MEDS: Anastrozole 1 MG TAB PO SCH (09:47)
[2020-02-21] MEDS: Carvedilol 3.125 MG TAB PO SCH ×2 (09:47→18:50)
[2020-02-21] MEDS: Gabapentin 300 MG CAP PO SCH ×2 (09:47→21:28)
[2020-02-21] MEDS: Ferrous Sulfate 325 MG TAB PO SCH ×2 (09:47→18:48)
[2020-02-21] MEDS: Ascorbic Acid 500 mg Chewable Tablet PO SCH ×2 (09:48→21:31)
[2020-02-21] MEDS: Furosemide 20 MG TAB PO SCH (09:48)
[2020-02-21] MEDS: Spironolactone 25 MG TAB PO SCH (09:48)
[2020-02-21] MEDS: Calcium Carbonate + Vit D 500 MG TAB PO SCH (09:49)
[2020-02-21] MEDS: HumaLOG 300 UNITS/3 ML VIAL SC PRN (13:39)
[2020-02-21] MEDS: Aspirin Chewable 81 MG TAB PO SCH (18:48)
[2020-02-21] MEDS: Polyethylene Glycol 3350 17 GM Packet PO SCH (21:28)
[2020-02-21] MEDS: Zolpidem Tartrate 5 MG TAB PO SCH (21:30)
[2020-02-21] MEDS: Cyclobenzaprine 10 MG TAB PO SCH (21:30)
[2020-02-21] MEDS: Atorvastatin Calcium 40 MG TAB PO SCH (21:30)
[2020-02-22] MEDS: Levothyroxine Sodium 25 MCG TAB PO SCH (06:03)
[2020-02-22] MEDS: Acetaminophen 500 MG TAB PO SCH ×3 (06:04→20:09)
[2020-02-22] MEDS: traMADol HCl 50 MG TAB PO SCH ×3 (06:04→20:09)
[2020-02-22] MEDS: Levothyroxine Sodium 112 MCG TAB PO SCH (06:04)
[2020-02-22] MEDS: Lantus 1000 UNITS/10 ML VIAL SC SCH (09:05)
[2020-02-22] MEDS: metFORMIN XR 500 MG TAB PO SCH ×2 (09:06→21:05)
[2020-02-22] MEDS: Triamterene/Hydrochlorothiazide 37.5 mg/25 mg Tablet PO SCH (09:07)
[2020-02-22] MEDS: Cholecalciferol 1,000 UNITS (25 MCG) TAB PO SCH ×2 (09:07→21:04)
[2020-02-22] MEDS: Ubidecarenone 50 MG CAP PO SCH (09:07)
[2020-02-22] MEDS: Anastrozole 1 MG TAB PO SCH (09:08)
[2020-02-22] MEDS: Carvedilol 3.125 MG TAB PO SCH ×2 (09:09→15:42)
[2020-02-22] MEDS: Multivitamin W/ Minerals 1 TAB PO SCH (09:09)
[2020-02-22] MEDS: Gabapentin 300 MG CAP PO SCH ×2 (09:09→21:05)
[2020-02-22] MEDS: Ferrous Sulfate 325 MG TAB PO SCH ×2 (09:09→15:42)
[2020-02-22] MEDS: Ascorbic Acid 500 mg Chewable Tablet PO SCH ×2 (09:09→21:03)
[2020-02-22] MEDS: Spironolactone 25 MG TAB PO SCH (09:09)
[2020-02-22] MEDS: Loratadine 10 MG TAB PO SCH (09:09)
[2020-02-22] MEDS: Furosemide 20 MG TAB PO SCH (09:10)
[2020-02-22] MEDS: Calcium Carbonate + Vit D 500 MG TAB PO SCH (09:10)
[2020-02-22] MEDS: Aspirin Chewable 81 MG TAB PO SCH (15:42)
[2020-02-22] MEDS: Docusate 100 MG CAP PO PRN (15:44)
[2020-02-22] MEDS: Polyethylene Glycol 3350 17 GM Packet PO SCH (21:02)
[2020-02-22] MEDS: Atorvastatin Calcium 40 MG TAB PO SCH (21:03)
[2020-02-22] MEDS: Cyclobenzaprine 10 MG TAB PO SCH (21:05)
[2020-02-22] MEDS: Zolpidem Tartrate 5 MG TAB PO SCH (21:05)
[2020-02-23] MEDS: Acetaminophen 500 MG TAB PO SCH ×5 (00:59→19:08)
[2020-02-23] MEDS: traMADol HCl 50 MG TAB PO SCH ×4 (01:00→19:08)
[2020-02-23] MEDS: Levothyroxine Sodium 25 MCG TAB PO SCH (06:14)
[2020-02-23] MEDS: Levothyroxine Sodium 112 MCG TAB PO SCH (06:14)
[2020-02-23] MEDS: metFORMIN XR 500 MG TAB PO SCH (08:29)
[2020-02-23] MEDS: Gabapentin 300 MG CAP PO SCH ×2 (08:30→20:33)
[2020-02-23] MEDS: Ubidecarenone 50 MG CAP PO SCH (08:30)
[2020-02-23] MEDS: Spironolactone 25 MG TAB PO SCH (08:31)
[2020-02-23] MEDS: Furosemide 20 MG TAB PO SCH (08:31)
[2020-02-23] MEDS: Ferrous Sulfate 325 MG TAB PO SCH ×2 (08:31→17:09)
[2020-02-23] MEDS: Multivitamin W/ Minerals 1 TAB PO SCH (08:31)
[2020-02-23] MEDS: Cholecalciferol 1,000 UNITS (25 MCG) TAB PO SCH ×2 (08:32→20:33)
[2020-02-23] MEDS: Ascorbic Acid 500 mg Chewable Tablet PO SCH ×2 (08:32→20:34)
[2020-02-23] MEDS: Anastrozole 1 MG TAB PO SCH (08:32)
[2020-02-23] MEDS: Loratadine 10 MG TAB PO SCH (08:33)
[2020-02-23] MEDS: Calcium Carbonate + Vit D 500 MG TAB PO SCH (08:33)
[2020-02-23] MEDS: Carvedilol 3.125 MG TAB PO SCH ×2 (08:33→17:09)
[2020-02-23] MEDS: Docusate 100 MG CAP PO PRN (08:39)
[2020-02-23] MEDS: Triamterene/Hydrochlorothiazide 37.5 mg/25 mg Tablet PO SCH (08:39)
[2020-02-23] MEDS: Lantus 1000 UNITS/10 ML VIAL SC SCH (08:44)
[2020-02-23] MEDS: Aspirin Chewable 81 MG TAB PO SCH (17:09)
[2020-02-23] MEDS ORDERED: metFORMIN XR 500 MG TAB PO SCH (19:00)
[2020-02-23] MEDS: Fluconazole 100 MG TAB PO SCH (19:08)
[2020-02-23] MEDS: Polyethylene Glycol 3350 17 GM Packet PO SCH (20:32)
[2020-02-23] MEDS: HumaLOG 300 UNITS/3 ML VIAL SC PRN (20:32)
[2020-02-23] MEDS: Atorvastatin Calcium 40 MG TAB PO SCH (20:33)
[2020-02-23] MEDS: Cyclobenzaprine 10 MG TAB PO SCH (20:33)
[2020-02-23] MEDS: Zolpidem Tartrate 5 MG TAB PO SCH (20:34)
[2020-02-24] MEDS: traMADol HCl 50 MG TAB PO SCH ×4 (00:01→17:20)
[2020-02-24] MEDS: Acetaminophen 500 MG TAB PO SCH ×4 (00:01→17:20)
[2020-02-24] MEDS: Levothyroxine Sodium 25 MCG TAB PO SCH (06:22)
[2020-02-24] MEDS: Levothyroxine Sodium 112 MCG TAB PO SCH (06:22)
[2020-02-24] MEDS: Ferrous Sulfate 325 MG TAB PO SCH ×2 (08:50→17:21)
[2020-02-24] MEDS: Multivitamin W/ Minerals 1 TAB PO SCH (08:50)
[2020-02-24] MEDS: Lantus 1000 UNITS/10 ML VIAL SC SCH (08:50)
[2020-02-24] MEDS: Ubidecarenone 50 MG CAP PO SCH (08:51)
[2020-02-24] MEDS: Triamterene/Hydrochlorothiazide 37.5 mg/25 mg Tablet PO SCH (08:51)
[2020-02-24] MEDS: Anastrozole 1 MG TAB PO SCH (08:51)
[2020-02-24] MEDS: Ascorbic Acid 500 mg Chewable Tablet PO SCH ×2 (08:51→20:44)
[2020-02-24] MEDS: Cholecalciferol 1,000 UNITS (25 MCG) TAB PO SCH ×2 (08:51→20:44)
[2020-02-24] MEDS: metFORMIN XR 500 MG TAB PO SCH ×2 (08:52→17:22)
[2020-02-24] MEDS: Gabapentin 300 MG CAP PO SCH ×2 (08:52→20:43)
[2020-02-24] MEDS: Loratadine 10 MG TAB PO SCH (08:52)
[2020-02-24] MEDS: Carvedilol 3.125 MG TAB PO SCH ×2 (08:52→17:21)
[2020-02-24] MEDS: Furosemide 20 MG TAB PO SCH (08:52)
[2020-02-24] MEDS: Spironolactone 25 MG TAB PO SCH (08:52)
[2020-02-24] MEDS: Calcium Carbonate + Vit D 500 MG TAB PO SCH (08:53)
[2020-02-24] MEDS: Docusate 100 MG CAP PO PRN (12:25)
[2020-02-24] MEDS: HumaLOG 300 UNITS/3 ML VIAL SC PRN (17:20)
[2020-02-24] MEDS: Fluconazole 100 MG TAB PO SCH (17:21)
[2020-02-24] MEDS: Aspirin Chewable 81 MG TAB PO SCH (17:21)
[2020-02-24] MEDS: Cyclobenzaprine 10 MG TAB PO SCH (20:43)
[2020-02-24] MEDS: Atorvastatin Calcium 40 MG TAB PO SCH (20:43)
[2020-02-24] MEDS: Polyethylene Glycol 3350 17 GM Packet PO SCH (20:45)
[2020-02-24] MEDS: Zolpidem Tartrate 5 MG TAB PO SCH (21:03)
[2020-02-25] MEDS: Acetaminophen 500 MG TAB PO SCH ×4 (00:11→17:54)
[2020-02-25] MEDS: traMADol HCl 50 MG TAB PO SCH ×4 (00:12→17:55)
[2020-02-25] MEDS: Levothyroxine Sodium 25 MCG TAB PO SCH (05:32)
[2020-02-25] MEDS: Levothyroxine Sodium 112 MCG TAB PO SCH (05:33)
[2020-02-25] MEDS: Triamterene/Hydrochlorothiazide 37.5 mg/25 mg Tablet PO SCH (09:49)
[2020-02-25] MEDS: Ubidecarenone 50 MG CAP PO SCH (09:50)
[2020-02-25] MEDS: metFORMIN XR 500 MG TAB PO SCH ×2 (09:50→16:35)
[2020-02-25] MEDS: Anastrozole 1 MG TAB PO SCH (09:52)
[2020-02-25] MEDS: Furosemide 20 MG TAB PO SCH (09:52)
[2020-02-25] MEDS: Multivitamin W/ Minerals 1 TAB PO SCH (09:52)
[2020-02-25] MEDS: Ferrous Sulfate 325 MG TAB PO SCH ×2 (09:52→16:36)
[2020-02-25] MEDS: Loratadine 10 MG TAB PO SCH (09:52)
[2020-02-25] MEDS: Spironolactone 25 MG TAB PO SCH (09:52)
[2020-02-25] MEDS: Carvedilol 3.125 MG TAB PO SCH ×2 (09:52→16:33)
[2020-02-25] MEDS: Calcium Carbonate + Vit D 500 MG TAB PO SCH (09:53)
[2020-02-25] MEDS: Ascorbic Acid 500 mg Chewable Tablet PO SCH (09:53)
[2020-02-25] MEDS: Gabapentin 300 MG CAP PO SCH ×2 (09:53→20:51)
[2020-02-25] MEDS: Cholecalciferol 1,000 UNITS (25 MCG) TAB PO SCH ×2 (09:54→20:51)
[2020-02-25] MEDS: Lantus 1000 UNITS/10 ML VIAL SC SCH (10:05)
[2020-02-25] MEDS: HumaLOG 300 UNITS/3 ML VIAL SC PRN (13:32)
[2020-02-25] MEDS: Fluconazole 100 MG TAB PO SCH (16:34)
[2020-02-25] MEDS: Aspirin Chewable 81 MG TAB PO SCH (16:35)
[2020-02-25] MEDS: Atorvastatin Calcium 40 MG TAB PO SCH (20:51)
[2020-02-25] MEDS: Cyclobenzaprine 10 MG TAB PO SCH (20:51)
[2020-02-25] MEDS: Polyethylene Glycol 3350 17 GM Packet PO SCH (20:51)
[2020-02-25] MEDS: Zolpidem Tartrate 5 MG TAB PO SCH (20:51)
[2020-02-25] MEDS: traMADol HCl 50 MG TAB PO PRN (22:15)
[2020-02-26] MEDS: traMADol HCl 50 MG TAB PO SCH ×4 (00:12→17:14)
[2020-02-26] MEDS: Acetaminophen 500 MG TAB PO SCH ×4 (00:13→17:14)
[2020-02-26] MEDS: Levothyroxine Sodium 25 MCG TAB PO SCH (05:11)
[2020-02-26] MEDS: Levothyroxine Sodium 112 MCG TAB PO SCH (05:11)
[2020-02-26] MEDS: Lantus 1000 UNITS/10 ML VIAL SC SCH (08:52)
[2020-02-26] MEDS: Ubidecarenone 50 MG CAP PO SCH (08:52)
[2020-02-26] MEDS: Triamterene/Hydrochlorothiazide 37.5 mg/25 mg Tablet PO SCH (08:53)
[2020-02-26] MEDS: metFORMIN XR 500 MG TAB PO SCH ×2 (08:53→16:39)
[2020-02-26] MEDS: Multivitamin W/ Minerals 1 TAB PO SCH (08:54)
[2020-02-26] MEDS: Loratadine 10 MG TAB PO SCH (08:54)
[2020-02-26] MEDS: Anastrozole 1 MG TAB PO SCH (08:54)
[2020-02-26] MEDS: Furosemide 20 MG TAB PO SCH (08:55)
[2020-02-26] MEDS: Ascorbic Acid 500 mg Chewable Tablet PO SCH (08:56)
[2020-02-26] MEDS: Gabapentin 300 MG CAP PO SCH ×2 (08:57→21:11)
[2020-02-26] MEDS: Ferrous Sulfate 325 MG TAB PO SCH (08:57)
[2020-02-26] MEDS: Cholecalciferol 1,000 UNITS (25 MCG) TAB PO SCH ×2 (08:57→21:11)
[2020-02-26] MEDS: Carvedilol 3.125 MG TAB PO SCH ×2 (08:57→16:40)
[2020-02-26] MEDS: Calcium Carbonate + Vit D 500 MG TAB PO SCH (08:58)
[2020-02-26] MEDS: Spironolactone 25 MG TAB PO SCH (08:58)
[2020-02-26] MEDS: HumaLOG 300 UNITS/3 ML VIAL SC PRN (12:32)
[2020-02-26] MEDS: Fluconazole 100 MG TAB PO SCH (16:39)
[2020-02-26] MEDS: Aspirin Chewable 81 MG TAB PO SCH (16:39)
[2020-02-26] MEDS: Cyclobenzaprine 10 MG TAB PO SCH (21:10)
[2020-02-26] MEDS: Atorvastatin Calcium 40 MG TAB PO SCH (21:11)
[2020-02-26] MEDS: Zolpidem Tartrate 5 MG TAB PO SCH (21:11)
[2020-02-26] MEDS: Polyethylene Glycol 3350 17 GM Packet PO SCH (21:12)
[2020-02-27] MEDS: Acetaminophen 500 MG TAB PO SCH ×5 (00:07→23:53)
[2020-02-27] MEDS: traMADol HCl 50 MG TAB PO SCH ×5 (00:08→23:53)
[2020-02-27] MEDS: Levothyroxine Sodium 25 MCG TAB PO SCH (05:42)
[2020-02-27] MEDS: Levothyroxine Sodium 112 MCG TAB PO SCH (05:42)
[2020-02-27] MEDS: Lantus 1000 UNITS/10 ML VIAL SC SCH (08:46)
[2020-02-27] MEDS: metFORMIN XR 500 MG TAB PO SCH ×2 (08:48→16:35)
[2020-02-27] MEDS: Ubidecarenone 50 MG CAP PO SCH (08:48)
[2020-02-27] MEDS: Carvedilol 3.125 MG TAB PO SCH ×2 (08:49→16:36)
[2020-02-27] MEDS: Ascorbic Acid 500 mg Chewable Tablet PO SCH (08:49)
[2020-02-27] MEDS: Spironolactone 25 MG TAB PO SCH (08:49)
[2020-02-27] MEDS: Multivitamin W/ Minerals 1 TAB PO SCH (08:49)
[2020-02-27] MEDS: Ferrous Sulfate 325 MG TAB PO SCH (08:50)
[2020-02-27] MEDS: Triamterene/Hydrochlorothiazide 37.5 mg/25 mg Tablet PO SCH (08:51)
[2020-02-27] MEDS: Anastrozole 1 MG TAB PO SCH (08:51)
[2020-02-27] MEDS: Furosemide 20 MG TAB PO SCH (08:51)
[2020-02-27] MEDS: Cholecalciferol 1,000 UNITS (25 MCG) TAB PO SCH ×2 (08:52→20:58)
[2020-02-27] MEDS: Calcium Carbonate + Vit D 500 MG TAB PO SCH (08:52)
[2020-02-27] MEDS: Gabapentin 300 MG CAP PO SCH ×2 (08:53→20:58)
[2020-02-27] MEDS: Loratadine 10 MG TAB PO SCH (09:04)
[2020-02-27] MEDS: HumaLOG 300 UNITS/3 ML VIAL SC PRN (12:26)
--- NOTE | 2020-02-27 15:36 | RAD ---
RIGHT RIBS WITH PA CHEST: DATE: 02/27/2020. COMPARISON: Comparison is made with a prior study dated 02/08/2020. FINDINGS: The heart is mildly enlarged but unchanged in size. There is no mediastinal widening or shift. Ther e has been a prior CABG. No vascular congestion or edema was present. I see no pleural effusion or pneumothorax. Some calcification is seen over the right humeral head that could signify calcific ten dinitis. On one view, there was an equivocal line at the distal end of the right 9th rib. I cannot tell if th is is a small hairline fracture, or if it is merely overlapping shadows. Correlate with clinical exa m to determine importance. On another view, the end of the 8th rib had a similar finding, but it loo ked even less like a fracture. Otherwise, the ribs all appeared intact. IMPRESSION: 1. Mild cardiomegaly, unchanged. Overall appearance of the chest shows no adverse exchange teller the i nterval. 2. Equivocal line of at the distal end of the right 9th rib. See discussion above. Correlate with exact clinical exam. POS: HOME
[2020-02-27] MEDS: Fluconazole 100 MG TAB PO SCH (16:35)
[2020-02-27] MEDS: Aspirin Chewable 81 MG TAB PO SCH (16:36)
[2020-02-27] MEDS: Cyclobenzaprine 10 MG TAB PO SCH (20:58)
[2020-02-27] MEDS: Atorvastatin Calcium 40 MG TAB PO SCH (20:58)
[2020-02-27] MEDS: Zolpidem Tartrate 5 MG TAB PO SCH (20:59)
[2020-02-27] MEDS: Polyethylene Glycol 3350 17 GM Packet PO SCH (20:59)
[2020-02-27] MEDS: AZELASTINE HCL 0.1% NASAL SPRAY EA NARE SCH (21:02)
[2020-02-28] MEDS: Acetaminophen 500 MG TAB PO SCH ×4 (05:24→23:54)
[2020-02-28] MEDS: traMADol HCl 50 MG TAB PO SCH ×4 (05:25→23:56)
[2020-02-28] MEDS: Levothyroxine Sodium 112 MCG TAB PO SCH (05:25)
[2020-02-28] MEDS: Levothyroxine Sodium 25 MCG TAB PO SCH (05:25)
[2020-02-28] MEDS: Ubidecarenone 50 MG CAP PO SCH (09:35)
[2020-02-28] MEDS: metFORMIN XR 500 MG TAB PO SCH ×2 (09:35→17:13)
[2020-02-28] MEDS: AZELASTINE HCL 0.1% NASAL SPRAY EA NARE SCH ×2 (09:39→20:36)
[2020-02-28] MEDS: Cholecalciferol 1,000 UNITS (25 MCG) TAB PO SCH ×2 (09:40→20:31)
[2020-02-28] MEDS: Triamterene/Hydrochlorothiazide 37.5 mg/25 mg Tablet PO SCH (09:40)
[2020-02-28] MEDS: Gabapentin 300 MG CAP PO SCH ×2 (09:41→20:31)
[2020-02-28] MEDS: Ferrous Sulfate 325 MG TAB PO SCH (09:41)
[2020-02-28] MEDS: Spironolactone 25 MG TAB PO SCH (09:41)
[2020-02-28] MEDS: Carvedilol 3.125 MG TAB PO SCH ×2 (09:41→17:13)
[2020-02-28] MEDS: Ascorbic Acid 500 mg Chewable Tablet PO SCH (09:42)
[2020-02-28] MEDS: Anastrozole 1 MG TAB PO SCH (09:42)
[2020-02-28] MEDS: Furosemide 20 MG TAB PO SCH (09:42)
[2020-02-28] MEDS: Loratadine 10 MG TAB PO SCH (09:42)
[2020-02-28] MEDS: Multivitamin W/ Minerals 1 TAB PO SCH (09:42)
[2020-02-28] MEDS: Docusate 100 MG CAP PO PRN (09:42)
[2020-02-28] MEDS: Calcium Carbonate + Vit D 500 MG TAB PO SCH (09:43)
[2020-02-28] MEDS: Lantus 1000 UNITS/10 ML VIAL SC SCH (09:44)
[2020-02-28] MEDS: HumaLOG 300 UNITS/3 ML VIAL SC PRN ×2 (13:56→18:24)
[2020-02-28] MEDS ORDERED: Polyethylene Glycol 3350 17 GM Packet PO PRN (15:09)
[2020-02-28] MEDS: Aspirin Chewable 81 MG TAB PO SCH (17:13)
[2020-02-28] MEDS: Polyethylene Glycol 3350 17 GM Packet PO PRN (17:14)
[2020-02-28] MEDS: Atorvastatin Calcium 40 MG TAB PO SCH (20:31)
[2020-02-28] MEDS: Cyclobenzaprine 10 MG TAB PO SCH (20:31)
[2020-02-28] MEDS: Zolpidem Tartrate 5 MG TAB PO SCH (20:31)
[2020-02-29] MEDS: Levothyroxine Sodium 25 MCG TAB PO SCH (05:41)
[2020-02-29] MEDS: traMADol HCl 50 MG TAB PO SCH ×4 (05:41→23:56)
[2020-02-29] MEDS: Levothyroxine Sodium 112 MCG TAB PO SCH (05:41)
[2020-02-29] MEDS: Acetaminophen 500 MG TAB PO SCH ×4 (05:41→23:56)
[2020-02-29] MEDS: metFORMIN XR 500 MG TAB PO SCH ×2 (07:26→18:01)
[2020-02-29] MEDS: Cholecalciferol 1,000 UNITS (25 MCG) TAB PO SCH ×2 (08:21→20:20)
[2020-02-29] MEDS: Ubidecarenone 50 MG CAP PO SCH (08:21)
[2020-02-29] MEDS: Ferrous Sulfate 325 MG TAB PO SCH (08:22)
[2020-02-29] MEDS: Triamterene/Hydrochlorothiazide 37.5 mg/25 mg Tablet PO SCH (08:22)
[2020-02-29] MEDS: Loratadine 10 MG TAB PO SCH (08:23)
[2020-02-29] MEDS: Carvedilol 3.125 MG TAB PO SCH ×2 (08:23→18:01)
[2020-02-29] MEDS: Furosemide 20 MG TAB PO SCH (08:23)
[2020-02-29] MEDS: Ascorbic Acid 500 mg Chewable Tablet PO SCH (08:23)
[2020-02-29] MEDS: Anastrozole 1 MG TAB PO SCH (08:23)
[2020-02-29] MEDS: Multivitamin W/ Minerals 1 TAB PO SCH (08:23)
[2020-02-29] MEDS: Gabapentin 300 MG CAP PO SCH ×2 (08:23→20:19)
[2020-02-29] MEDS: Spironolactone 25 MG TAB PO SCH (08:23)
[2020-02-29] MEDS: Calcium Carbonate + Vit D 500 MG TAB PO SCH (08:24)
[2020-02-29] MEDS: Lantus 1000 UNITS/10 ML VIAL SC SCH (08:26)
[2020-02-29] MEDS: AZELASTINE HCL 0.1% NASAL SPRAY EA NARE SCH ×2 (08:31→21:32)
[2020-02-29] MEDS: traMADol HCl 50 MG TAB PO PRN ×2 (09:23→20:20)
[2020-02-29] MEDS: Aspirin Chewable 81 MG TAB PO SCH (18:02)
[2020-02-29] MEDS: Polyethylene Glycol 3350 17 GM Packet PO PRN (20:17)
[2020-02-29] MEDS: Cyclobenzaprine 10 MG TAB PO SCH (20:19)
[2020-02-29] MEDS: Atorvastatin Calcium 40 MG TAB PO SCH (20:20)
[2020-02-29] MEDS: Zolpidem Tartrate 5 MG TAB PO SCH (21:31)
[2020-02-29] MEDS: HumaLOG 300 UNITS/3 ML VIAL SC PRN (21:34)
[2020-03-01] MEDS: traMADol HCl 50 MG TAB PO SCH ×3 (05:53→18:25)
[2020-03-01] MEDS: Acetaminophen 500 MG TAB PO SCH ×3 (05:55→18:24)
[2020-03-01] MEDS: Levothyroxine Sodium 25 MCG TAB PO SCH (05:55)
[2020-03-01] MEDS: Levothyroxine Sodium 112 MCG TAB PO SCH (05:55)
[2020-03-01] MEDS: metFORMIN XR 500 MG TAB PO SCH ×2 (07:43→18:26)
[2020-03-01] MEDS: Lantus 1000 UNITS/10 ML VIAL SC SCH (08:58)
[2020-03-01] MEDS: Ubidecarenone 50 MG CAP PO SCH (09:01)
[2020-03-01] MEDS: Cholecalciferol 1,000 UNITS (25 MCG) TAB PO SCH ×2 (09:01→20:36)
[2020-03-01] MEDS: Ferrous Sulfate 325 MG TAB PO SCH (09:02)
[2020-03-01] MEDS: Spironolactone 25 MG TAB PO SCH (09:02)
[2020-03-01] MEDS: Triamterene/Hydrochlorothiazide 37.5 mg/25 mg Tablet PO SCH (09:02)
[2020-03-01] MEDS: Gabapentin 300 MG CAP PO SCH ×2 (09:02→20:36)
[2020-03-01] MEDS: Ascorbic Acid 500 mg Chewable Tablet PO SCH (09:02)
[2020-03-01] MEDS: Furosemide 20 MG TAB PO SCH (09:03)
[2020-03-01] MEDS: Calcium Carbonate + Vit D 500 MG TAB PO SCH (09:03)
[2020-03-01] MEDS: Loratadine 10 MG TAB PO SCH (09:03)
[2020-03-01] MEDS: Carvedilol 3.125 MG TAB PO SCH ×2 (09:03→18:26)
[2020-03-01] MEDS: Anastrozole 1 MG TAB PO SCH (09:03)
[2020-03-01] MEDS: Multivitamin W/ Minerals 1 TAB PO SCH (09:03)
[2020-03-01] MEDS: AZELASTINE HCL 0.1% NASAL SPRAY EA NARE SCH ×2 (09:04→20:36)
[2020-03-01] MEDS: Docusate 100 MG CAP PO PRN (09:11)
[2020-03-01] MEDS: Aspirin Chewable 81 MG TAB PO SCH (18:24)
[2020-03-01] MEDS: traMADol HCl 50 MG TAB PO PRN (20:34)
[2020-03-01] MEDS: Cyclobenzaprine 10 MG TAB PO SCH (20:35)
[2020-03-01] MEDS: Atorvastatin Calcium 40 MG TAB PO SCH (20:36)
[2020-03-01] MEDS: Zolpidem Tartrate 5 MG TAB PO SCH (20:36)
[2020-03-02] MEDS: traMADol HCl 50 MG TAB PO SCH ×5 (00:08→23:59)
[2020-03-02] MEDS: Acetaminophen 500 MG TAB PO SCH ×5 (00:08→23:59)
[2020-03-02] MEDS: Levothyroxine Sodium 25 MCG TAB PO SCH (05:32)
[2020-03-02] MEDS: Levothyroxine Sodium 112 MCG TAB PO SCH (05:32)
[2020-03-02] MEDS: metFORMIN XR 500 MG TAB PO SCH ×2 (08:05→17:12)
[2020-03-02] MEDS: Ubidecarenone 50 MG CAP PO SCH (09:01)
[2020-03-02] MEDS: Cholecalciferol 1,000 UNITS (25 MCG) TAB PO SCH ×2 (09:01→20:52)
[2020-03-02] MEDS: Triamterene/Hydrochlorothiazide 37.5 mg/25 mg Tablet PO SCH (09:02)
[2020-03-02] MEDS: Spironolactone 25 MG TAB PO SCH (09:02)
[2020-03-02] MEDS: Loratadine 10 MG TAB PO SCH (09:03)
[2020-03-02] MEDS: Furosemide 20 MG TAB PO SCH (09:03)
[2020-03-02] MEDS: Gabapentin 300 MG CAP PO SCH ×2 (09:03→20:52)
[2020-03-02] MEDS: Carvedilol 3.125 MG TAB PO SCH ×2 (09:03→17:13)
[2020-03-02] MEDS: Multivitamin W/ Minerals 1 TAB PO SCH (09:03)
[2020-03-02] MEDS: Anastrozole 1 MG TAB PO SCH (09:03)
[2020-03-02] MEDS: Ferrous Sulfate 325 MG TAB PO SCH (09:03)
[2020-03-02] MEDS: Ascorbic Acid 500 mg Chewable Tablet PO SCH (09:03)
[2020-03-02] MEDS: Calcium Carbonate + Vit D 500 MG TAB PO SCH (09:07)
[2020-03-02] MEDS: Lantus 1000 UNITS/10 ML VIAL SC SCH (09:14)
[2020-03-02] MEDS: Docusate 100 MG CAP PO PRN (09:16)
[2020-03-02] MEDS: AZELASTINE HCL 0.1% NASAL SPRAY EA NARE SCH ×2 (09:30→20:59)
[2020-03-02] MEDS: Aspirin Chewable 81 MG TAB PO SCH (17:13)
[2020-03-02] MEDS: Cyclobenzaprine 10 MG TAB PO SCH (20:53)
[2020-03-02] MEDS: Atorvastatin Calcium 40 MG TAB PO SCH (20:53)
[2020-03-02] MEDS: Zolpidem Tartrate 5 MG TAB PO SCH (20:53)
[2020-03-02] MEDS: traMADol HCl 50 MG TAB PO PRN (20:57)
[2020-03-03] MEDS: traMADol HCl 50 MG TAB PO SCH ×3 (06:06→17:42)
[2020-03-03] MEDS: Levothyroxine Sodium 112 MCG TAB PO SCH (06:07)
[2020-03-03] MEDS: Levothyroxine Sodium 25 MCG TAB PO SCH (06:07)
[2020-03-03] MEDS: Acetaminophen 500 MG TAB PO SCH ×3 (06:07→17:42)
[2020-03-03] MEDS: Lantus 1000 UNITS/10 ML VIAL SC SCH (09:03)
[2020-03-03] MEDS: metFORMIN XR 500 MG TAB PO SCH ×2 (09:03→16:32)
[2020-03-03] MEDS: Ubidecarenone 50 MG CAP PO SCH (09:04)
[2020-03-03] MEDS: Anastrozole 1 MG TAB PO SCH (09:04)
[2020-03-03] MEDS: Multivitamin W/ Minerals 1 TAB PO SCH (09:05)
[2020-03-03] MEDS: Gabapentin 300 MG CAP PO SCH ×2 (09:05→20:36)
[2020-03-03] MEDS: Spironolactone 25 MG TAB PO SCH (09:06)
[2020-03-03] MEDS: Ascorbic Acid 500 mg Chewable Tablet PO SCH (09:06)
[2020-03-03] MEDS: Ferrous Sulfate 325 MG TAB PO SCH (09:06)
[2020-03-03] MEDS: Cholecalciferol 1,000 UNITS (25 MCG) TAB PO SCH ×2 (09:07→20:36)
[2020-03-03] MEDS: Loratadine 10 MG TAB PO SCH (09:07)
[2020-03-03] MEDS: Furosemide 20 MG TAB PO SCH (09:07)
[2020-03-03] MEDS: Carvedilol 3.125 MG TAB PO SCH ×2 (09:08→16:32)
[2020-03-03] MEDS: Calcium Carbonate + Vit D 500 MG TAB PO SCH (09:09)
[2020-03-03] MEDS: Triamterene/Hydrochlorothiazide 37.5 mg/25 mg Tablet PO SCH (09:12)
[2020-03-03] MEDS: Docusate 100 MG CAP PO PRN (09:15)
[2020-03-03] MEDS: AZELASTINE HCL 0.1% NASAL SPRAY EA NARE SCH ×2 (09:16→20:50)
--- NOTE | 2020-03-03 10:38 | RAD ---
Exam: Chest one view HISTORY:Fall. Pain. Comparison: 02/27/2020 FINDINGS: Cardiac silhouette:Upper normal cardiac silhouette. There are sternotomy wires. Aorta: Atherosclerosis Pulmonary vessels: Normal Costophrenic angles: Clear LUNGS: No masses or consolidation. Pneumothorax: None Osseous abnormalities: Redemonstration of a left shoulder arthroplasty IMPRESSION: No acute cardiopulmonary process.
--- NOTE | 2020-03-03 10:39 | RAD ---
Exam:3 views left shoulder HISTORY: Pain. Fall. COMPARISON: 02/10/2020, and 02/08/2020 FINDINGS: Uncomplicated left shoulder arthroplasty. Fracture fragment inferior to the left humeral ne ck is presumed to be due to remote trauma. There is no evidence of perihardware lucency. No fracture stem of the humeral prosthesis. IMPRESSION: No fracture.
--- NOTE | 2020-03-03 10:40 | RAD ---
Exam:4 views left knee HISTORY: Pain. Fall. Trauma. COMPARISON: None FINDINGS: Preserved joint spaces. Fusion. No fractures or malalignment. Uncomplicated left knee arthr oplasty. IMPRESSION: Uncomplicated left knee arthroplasty. No fracture.
--- NOTE | 2020-03-03 10:40 | RAD ---
Exam:Left hip 2 views HISTORY: Fall. Pain. COMPARISON: None FINDINGS: Preserved joint space. Contour of the femoral head is maintained. No fracture. Atherosclero sis in the left lower extremity IMPRESSION: No fracture.
[2020-03-03] MEDS: Aspirin Chewable 81 MG TAB PO SCH (16:32)
[2020-03-03] MEDS: HumaLOG 300 UNITS/3 ML VIAL SC PRN (17:43)
[2020-03-03] MEDS: Zolpidem Tartrate 5 MG TAB PO SCH (20:36)
[2020-03-03] MEDS: Atorvastatin Calcium 40 MG TAB PO SCH (20:36)
[2020-03-03] MEDS: Cyclobenzaprine 10 MG TAB PO SCH (20:36)
[2020-03-03] MEDS: traMADol HCl 50 MG TAB PO PRN (20:37)
[2020-03-04] MEDS: traMADol HCl 50 MG TAB PO SCH ×5 (00:08→23:34)
[2020-03-04] MEDS: Acetaminophen 500 MG TAB PO SCH ×5 (00:08→23:34)
[2020-03-04] MEDS: Levothyroxine Sodium 25 MCG TAB PO SCH (05:48)
[2020-03-04] MEDS: Levothyroxine Sodium 112 MCG TAB PO SCH (05:48)
[2020-03-04] MEDS: Triamterene/Hydrochlorothiazide 37.5 mg/25 mg Tablet PO SCH (08:39)
[2020-03-04] MEDS: Ferrous Sulfate 325 MG TAB PO SCH (08:40)
[2020-03-04] MEDS: metFORMIN XR 500 MG TAB PO SCH ×2 (08:40→16:34)
[2020-03-04] MEDS: Gabapentin 300 MG CAP PO SCH ×2 (08:41→20:50)
[2020-03-04] MEDS: Ubidecarenone 50 MG CAP PO SCH (08:41)
[2020-03-04] MEDS: Multivitamin W/ Minerals 1 TAB PO SCH (08:42)
[2020-03-04] MEDS: Ascorbic Acid 500 mg Chewable Tablet PO SCH (08:42)
[2020-03-04] MEDS: Anastrozole 1 MG TAB PO SCH (08:42)
[2020-03-04] MEDS: Spironolactone 25 MG TAB PO SCH (08:43)
[2020-03-04] MEDS: Carvedilol 3.125 MG TAB PO SCH ×2 (08:43→16:34)
[2020-03-04] MEDS: Loratadine 10 MG TAB PO SCH (08:43)
[2020-03-04] MEDS: Cholecalciferol 1,000 UNITS (25 MCG) TAB PO SCH ×2 (08:43→20:51)
[2020-03-04] MEDS: Furosemide 20 MG TAB PO SCH (08:43)
[2020-03-04] MEDS: Lantus 1000 UNITS/10 ML VIAL SC SCH (08:44)
[2020-03-04] MEDS: Calcium Carbonate + Vit D 500 MG TAB PO SCH (08:45)
[2020-03-04] MEDS: AZELASTINE HCL 0.1% NASAL SPRAY EA NARE SCH ×2 (08:55→20:52)
[2020-03-04] MEDS: Aspirin Chewable 81 MG TAB PO SCH (16:34)
[2020-03-04] MEDS: Polyethylene Glycol 3350 17 GM Packet PO PRN (16:36)
[2020-03-04] MEDS: Docusate 100 MG CAP PO PRN (17:30)
[2020-03-04] MEDS: Cyclobenzaprine 10 MG TAB PO SCH (20:50)
[2020-03-04] MEDS: Atorvastatin Calcium 40 MG TAB PO SCH (20:50)
[2020-03-04] MEDS: Zolpidem Tartrate 5 MG TAB PO SCH (20:51)
[2020-03-04] MEDS: traMADol HCl 50 MG TAB PO PRN (20:51)
[2020-03-05] MEDS: Acetaminophen 500 MG TAB PO SCH ×4 (05:34→23:39)
[2020-03-05] MEDS: Levothyroxine Sodium 25 MCG TAB PO SCH (05:34)
[2020-03-05] MEDS: Levothyroxine Sodium 112 MCG TAB PO SCH (05:34)
[2020-03-05] MEDS: traMADol HCl 50 MG TAB PO SCH ×4 (05:35→23:39)
[2020-03-05] MEDS: Lantus 1000 UNITS/10 ML VIAL SC SCH (09:05)
[2020-03-05] MEDS: Triamterene/Hydrochlorothiazide 37.5 mg/25 mg Tablet PO SCH (09:06)
[2020-03-05] MEDS: metFORMIN XR 500 MG TAB PO SCH ×2 (09:07→16:40)
[2020-03-05] MEDS: Ubidecarenone 50 MG CAP PO SCH (09:07)
[2020-03-05] MEDS: Cholecalciferol 1,000 UNITS (25 MCG) TAB PO SCH ×2 (09:08→20:41)
[2020-03-05] MEDS: Ferrous Sulfate 325 MG TAB PO SCH (09:08)
[2020-03-05] MEDS: Anastrozole 1 MG TAB PO SCH (09:08)
[2020-03-05] MEDS: Gabapentin 300 MG CAP PO SCH ×2 (09:09→20:42)
[2020-03-05] MEDS: Multivitamin W/ Minerals 1 TAB PO SCH (09:09)
[2020-03-05] MEDS: Loratadine 10 MG TAB PO SCH (09:10)
[2020-03-05] MEDS: Spironolactone 25 MG TAB PO SCH (09:10)
[2020-03-05] MEDS: Furosemide 20 MG TAB PO SCH (09:11)
[2020-03-05] MEDS: Carvedilol 3.125 MG TAB PO SCH ×2 (09:11→16:40)
[2020-03-05] MEDS: Ascorbic Acid 500 mg Chewable Tablet PO SCH (09:11)
[2020-03-05] MEDS: Calcium Carbonate + Vit D 500 MG TAB PO SCH (09:11)
[2020-03-05] MEDS: AZELASTINE HCL 0.1% NASAL SPRAY EA NARE SCH ×2 (09:31→20:43)
[2020-03-05] MEDS: HumaLOG 300 UNITS/3 ML VIAL SC PRN ×2 (13:27→17:12)
[2020-03-05] MEDS: Aspirin Chewable 81 MG TAB PO SCH (16:40)
[2020-03-05] MEDS: Polyethylene Glycol 3350 17 GM Packet PO PRN (17:13)
[2020-03-05] MEDS: Docusate 100 MG CAP PO PRN (17:13)
[2020-03-05] MEDS: Cyclobenzaprine 10 MG TAB PO SCH (20:41)
[2020-03-05] MEDS: traMADol HCl 50 MG TAB PO PRN (20:42)
[2020-03-05] MEDS: Atorvastatin Calcium 40 MG TAB PO SCH (20:42)
[2020-03-05] MEDS: Zolpidem Tartrate 5 MG TAB PO SCH (20:42)
[2020-03-06] MEDS: traMADol HCl 50 MG TAB PO SCH ×4 (05:38→23:58)
[2020-03-06] MEDS: Levothyroxine Sodium 112 MCG TAB PO SCH (05:39)
[2020-03-06] MEDS: Levothyroxine Sodium 25 MCG TAB PO SCH (05:39)
[2020-03-06] MEDS: Acetaminophen 500 MG TAB PO SCH ×4 (05:39→23:58)
[2020-03-06] MEDS: metFORMIN XR 500 MG TAB PO SCH ×2 (08:20→16:25)
[2020-03-06] MEDS: Triamterene/Hydrochlorothiazide 37.5 mg/25 mg Tablet PO SCH (08:56)
[2020-03-06] MEDS: Cholecalciferol 1,000 UNITS (25 MCG) TAB PO SCH ×2 (08:56→20:33)
[2020-03-06] MEDS: Ubidecarenone 50 MG CAP PO SCH (08:56)
[2020-03-06] MEDS: AZELASTINE HCL 0.1% NASAL SPRAY EA NARE SCH ×2 (08:58→20:33)
[2020-03-06] MEDS: Carvedilol 3.125 MG TAB PO SCH ×2 (08:59→16:25)
[2020-03-06] MEDS: Ascorbic Acid 500 mg Chewable Tablet PO SCH (08:59)
[2020-03-06] MEDS: Ferrous Sulfate 325 MG TAB PO SCH (08:59)
[2020-03-06] MEDS: Spironolactone 25 MG TAB PO SCH (08:59)
[2020-03-06] MEDS: Multivitamin W/ Minerals 1 TAB PO SCH (08:59)
[2020-03-06] MEDS: Furosemide 20 MG TAB PO SCH (09:00)
[2020-03-06] MEDS: Lantus 1000 UNITS/10 ML VIAL SC SCH (09:00)
[2020-03-06] MEDS: Anastrozole 1 MG TAB PO SCH (09:00)
[2020-03-06] MEDS: Gabapentin 300 MG CAP PO SCH ×2 (09:00→20:33)
[2020-03-06] MEDS: Loratadine 10 MG TAB PO SCH (09:00)
[2020-03-06] MEDS: Calcium Carbonate + Vit D 500 MG TAB PO SCH (09:01)
[2020-03-06] MEDS: HumaLOG 300 UNITS/3 ML VIAL SC PRN ×3 (13:25→20:34)
[2020-03-06] MEDS: Aspirin Chewable 81 MG TAB PO SCH (16:25)
[2020-03-06] MEDS ORDERED: traMADol HCl 50 MG TAB PO PRN (17:16)
[2020-03-06] MEDS: Polyethylene Glycol 3350 17 GM Packet PO PRN (18:00)
[2020-03-06] MEDS: Docusate 100 MG CAP PO PRN (18:01)
[2020-03-06] MEDS: Zolpidem Tartrate 5 MG TAB PO SCH (20:33)
[2020-03-06] MEDS: Atorvastatin Calcium 40 MG TAB PO SCH (20:33)
[2020-03-06] MEDS: Cyclobenzaprine 10 MG TAB PO SCH (20:33)
[2020-03-07] MEDS: Acetaminophen 500 MG TAB PO SCH ×4 (06:00→23:47)
[2020-03-07] MEDS: Levothyroxine Sodium 112 MCG TAB PO SCH (06:01)
[2020-03-07] MEDS: Levothyroxine Sodium 25 MCG TAB PO SCH (06:01)
[2020-03-07] MEDS: traMADol HCl 50 MG TAB PO SCH ×4 (06:01→23:47)
[2020-03-07] MEDS: metFORMIN XR 500 MG TAB PO SCH ×2 (08:21→17:35)
[2020-03-07] MEDS: Lantus 1000 UNITS/10 ML VIAL SC SCH (08:55)
[2020-03-07] MEDS: Ubidecarenone 50 MG CAP PO SCH (08:58)
[2020-03-07] MEDS: Triamterene/Hydrochlorothiazide 37.5 mg/25 mg Tablet PO SCH (08:58)
[2020-03-07] MEDS: Cholecalciferol 1,000 UNITS (25 MCG) TAB PO SCH ×2 (08:58→22:07)
[2020-03-07] MEDS: Loratadine 10 MG TAB PO SCH (08:59)
[2020-03-07] MEDS: Anastrozole 1 MG TAB PO SCH (08:59)
[2020-03-07] MEDS: Carvedilol 3.125 MG TAB PO SCH ×2 (08:59→17:35)
[2020-03-07] MEDS: Calcium Carbonate + Vit D 500 MG TAB PO SCH (08:59)
[2020-03-07] MEDS: Furosemide 20 MG TAB PO SCH (08:59)
[2020-03-07] MEDS: Multivitamin W/ Minerals 1 TAB PO SCH (08:59)
[2020-03-07] MEDS: Ferrous Sulfate 325 MG TAB PO SCH (08:59)
[2020-03-07] MEDS: Gabapentin 300 MG CAP PO SCH ×2 (08:59→22:07)
[2020-03-07] MEDS: Spironolactone 25 MG TAB PO SCH (08:59)
[2020-03-07] MEDS: Ascorbic Acid 500 mg Chewable Tablet PO SCH (08:59)
[2020-03-07] MEDS: AZELASTINE HCL 0.1% NASAL SPRAY EA NARE SCH ×2 (09:05→22:07)
[2020-03-07] MEDS: HumaLOG 300 UNITS/3 ML VIAL SC PRN ×2 (13:31→22:07)
[2020-03-07] MEDS: Aspirin Chewable 81 MG TAB PO SCH (17:35)
[2020-03-07] MEDS: Atorvastatin Calcium 40 MG TAB PO SCH (22:06)
[2020-03-07] MEDS: Cyclobenzaprine 10 MG TAB PO SCH (22:06)
[2020-03-07] MEDS: Zolpidem Tartrate 5 MG TAB PO SCH (22:07)
[2020-03-08] MEDS: Levothyroxine Sodium 25 MCG TAB PO SCH (06:04)
[2020-03-08] MEDS: Acetaminophen 500 MG TAB PO SCH ×4 (06:04→23:41)
[2020-03-08] MEDS: traMADol HCl 50 MG TAB PO SCH ×4 (06:05→23:41)
[2020-03-08] MEDS: Levothyroxine Sodium 112 MCG TAB PO SCH (06:05)
[2020-03-08] MEDS: Lantus 1000 UNITS/10 ML VIAL SC SCH (08:22)
[2020-03-08] MEDS: metFORMIN XR 500 MG TAB PO SCH ×2 (08:22→17:45)
[2020-03-08] MEDS: Cholecalciferol 1,000 UNITS (25 MCG) TAB PO SCH ×2 (08:22→20:43)
[2020-03-08] MEDS: Multivitamin W/ Minerals 1 TAB PO SCH (08:22)
[2020-03-08] MEDS: Calcium Carbonate + Vit D 500 MG TAB PO SCH (08:22)
[2020-03-08] MEDS: Spironolactone 25 MG TAB PO SCH (08:22)
[2020-03-08] MEDS: Ascorbic Acid 500 mg Chewable Tablet PO SCH (08:22)
[2020-03-08] MEDS: Ubidecarenone 50 MG CAP PO SCH (08:23)
[2020-03-08] MEDS: Gabapentin 300 MG CAP PO SCH ×2 (08:23→20:43)
[2020-03-08] MEDS: Loratadine 10 MG TAB PO SCH (08:23)
[2020-03-08] MEDS: Carvedilol 3.125 MG TAB PO SCH ×2 (08:23→17:45)
[2020-03-08] MEDS: Furosemide 20 MG TAB PO SCH (08:23)
[2020-03-08] MEDS: Triamterene/Hydrochlorothiazide 37.5 mg/25 mg Tablet PO SCH (08:23)
[2020-03-08] MEDS: Ferrous Sulfate 325 MG TAB PO SCH (08:23)
[2020-03-08] MEDS: Anastrozole 1 MG TAB PO SCH (08:23)
[2020-03-08] MEDS: AZELASTINE HCL 0.1% NASAL SPRAY EA NARE SCH ×2 (08:24→20:52)
[2020-03-08] MEDS: Polyethylene Glycol 3350 17 GM Packet PO PRN (08:31)
[2020-03-08] MEDS: Docusate 100 MG CAP PO PRN (08:31)
[2020-03-08] MEDS: Aspirin Chewable 81 MG TAB PO SCH (17:45)
[2020-03-08] MEDS: Cyclobenzaprine 10 MG TAB PO SCH (20:43)
[2020-03-08] MEDS: Atorvastatin Calcium 40 MG TAB PO SCH (20:43)
[2020-03-08] MEDS: Zolpidem Tartrate 5 MG TAB PO SCH (20:43)
[2020-03-09] MEDS: traMADol HCl 50 MG TAB PO SCH ×2 (05:58→11:03)
[2020-03-09] MEDS: Levothyroxine Sodium 112 MCG TAB PO SCH (05:58)
[2020-03-09] MEDS: Acetaminophen 500 MG TAB PO SCH ×2 (05:59→11:03)
[2020-03-09] MEDS: Levothyroxine Sodium 25 MCG TAB PO SCH (05:59)
[2020-03-09 06:50] VITALS: BP 147/67; TEMP 97.9
[2020-03-09] MEDS: Triamterene/Hydrochlorothiazide 37.5 mg/25 mg Tablet PO SCH (08:03)
[2020-03-09] MEDS: metFORMIN XR 500 MG TAB PO SCH (08:03)
[2020-03-09] MEDS: Ubidecarenone 50 MG CAP PO SCH (08:03)
[2020-03-09] MEDS: Calcium Carbonate + Vit D 500 MG TAB PO SCH (08:04)
[2020-03-09] MEDS: Cholecalciferol 1,000 UNITS (25 MCG) TAB PO SCH (08:04)
[2020-03-09] MEDS: Furosemide 20 MG TAB PO SCH (08:04)
[2020-03-09] MEDS: Anastrozole 1 MG TAB PO SCH (08:04)
[2020-03-09] MEDS: Gabapentin 300 MG CAP PO SCH (08:04)
[2020-03-09] MEDS: Spironolactone 25 MG TAB PO SCH (08:05)
[2020-03-09] MEDS: Ascorbic Acid 500 mg Chewable Tablet PO SCH (08:05)
[2020-03-09] MEDS: Multivitamin W/ Minerals 1 TAB PO SCH (08:05)
[2020-03-09] MEDS: Ferrous Sulfate 325 MG TAB PO SCH (08:05)
[2020-03-09] MEDS: Loratadine 10 MG TAB PO SCH (08:05)
[2020-03-09] MEDS: Carvedilol 3.125 MG TAB PO SCH (08:05)
[2020-03-09] MEDS: Lantus 1000 UNITS/10 ML VIAL SC SCH (08:07)
[2020-03-09] MEDS: AZELASTINE HCL 0.1% NASAL SPRAY EA NARE SCH (09:04)
== END 2020-03-09 11:40 | disposition home or self-care (01) | DRG 561 ==
LOC: BURMED 15:35
PROVIDERS: ADMIT Family Medicine; ATTEND Family Medicine
DX: Z47.89 Encounter for other orthopedic aftercare (principal); S42.202D Unspecified fracture of upper end of left humerus, subsequent encounter for fracture with routine healing; I25.10 Atherosclerotic heart disease of native coronary artery without angina pectoris; I10 Essential (primary) hypertension; E11.9 Type 2 diabetes mellitus without complications; Z79.4 Long term (current) use of insulin; Z95.1 Presence of aortocoronary bypass graft; Z88.0 Allergy status to penicillin; Z88.7 Allergy status to serum and vaccine
CPT/HCPCS: 36416; 71045; J1815

== ENCOUNTER 2020-10-10 17:53 | Emergency (ER) | payer MEDICARE, BC ==
[2020-10-10] MEDS ORDERED: Morphine 2 MG/ML VIAL ONE ×2 (18:07→18:11)
[2020-10-10] MEDS ORDERED: Morphine 4 MG/ML VIAL ONE (18:07)
[2020-10-10] MEDS ORDERED: Ondansetron PF 4 MG/2 ML Vial ONE ×2 (18:08→18:12)
== END 2020-10-10 19:25 | disposition short-term general hospital (02) ==
LOC: BURERS 17:53
DX: S72.401A Unspecified fracture of lower end of right femur, initial encounter for closed fracture (principal); E11.9 Type 2 diabetes mellitus without complications; I10 Essential (primary) hypertension; Z85.3 Personal history of malignant neoplasm of breast; W19.XXXA Unspecified fall, initial encounter
CPT/HCPCS: 73501; 73560; J2270; 29505; 96374; 96375; J2405

== ENCOUNTER 2020-10-14 14:50 | Inpatient (IN) | payer MEDICARE, BC ==
[2020-10-14 19:45] VITALS: BMI 35.8
[2020-10-14] MEDS: Zolpidem Tartrate 5 MG TAB PO SCH (21:04)
[2020-10-14] MEDS: Cholecalciferol 1,000 UNITS (25 MCG) TAB PO SCH (21:04)
[2020-10-14] MEDS: Gabapentin 300 MG CAP PO SCH (21:04)
[2020-10-14] MEDS: Atorvastatin Calcium 40 MG TAB PO SCH (21:04)
[2020-10-14] MEDS: Cyclobenzaprine 10 MG TAB PO SCH (21:04)
[2020-10-15] MEDS: Acetaminophen 500 MG TAB PO SCH ×4 (00:11→18:15)
[2020-10-15] MEDS: Levothyroxine Sodium 50 MCG TAB PO SCH (05:50)
[2020-10-15] MEDS: Carvedilol 6.25 MG TAB PO SCH ×2 (07:52→16:55)
[2020-10-15] MEDS: metFORMIN XR 500 MG TAB PO SCH ×2 (07:52→16:55)
[2020-10-15] MEDS: Lantus 1000 UNITS/10 ML VIAL SC SCH (07:57)
[2020-10-15] MEDS: Anastrozole 1 MG TAB PO SCH (08:35)
[2020-10-15] MEDS: Calcium Carbonate 600 MG + Vit D TAB PO SCH (08:35)
[2020-10-15] MEDS: Gabapentin 300 MG CAP PO SCH ×3 (08:35→20:17)
[2020-10-15] MEDS: Triamterene/Hydrochlorothiazide 37.5 mg/25 mg Tablet PO SCH (08:36)
[2020-10-15] MEDS: Cholecalciferol 1,000 UNITS (25 MCG) TAB PO SCH ×2 (08:37→20:17)
[2020-10-15] MEDS: Furosemide 20 MG TAB PO SCH (08:37)
[2020-10-15] MEDS: Multivitamin W/ Minerals 1 TAB PO SCH (08:38)
[2020-10-15] MEDS: Loratadine 10 MG TAB PO SCH (08:38)
[2020-10-15] MEDS ORDERED: FLU VACC QS2020-21(65YR UP)/PF 240 MCG/0.7 ML SYRINGE IM ONE (09:00)
[2020-10-15] MEDS: EMPAGLIFLOZIN 10 MG PO SCH (13:54)
[2020-10-15] MEDS: INSULIN GLULISINE 100 UNIT/ML SC SCH (13:55)
[2020-10-15] MEDS: INSULN SC SCH (13:55)
[2020-10-15] MEDS ORDERED: Dextrose 5% in Water 1,000 ML IV PRN (14:00)
[2020-10-15] MEDS ORDERED: Dextrose 50% Abboject 50 ML SYRINGE IVP PRN (14:00)
[2020-10-15] MEDS: HumaLOG 300 UNITS/3 ML VIAL SC PRN ×3 (14:58→20:15)
[2020-10-15] MEDS: traMADol HCl 50 MG TAB PO PRN (16:51)
[2020-10-15] MEDS: Aspirin Chewable 81 MG TAB PO SCH (16:55)
[2020-10-15] MEDS: Zolpidem Tartrate 5 MG TAB PO SCH (20:17)
[2020-10-15] MEDS: Cyclobenzaprine 10 MG TAB PO SCH (20:17)
[2020-10-15] MEDS: Atorvastatin Calcium 40 MG TAB PO SCH (20:18)
[2020-10-16] MEDS: Acetaminophen 500 MG TAB PO SCH ×4 (00:09→17:17)
[2020-10-16] MEDS: Levothyroxine Sodium 50 MCG TAB PO SCH (06:00)
[2020-10-16] MEDS ORDERED: Tenecteplase 50 MG - STEMI KIT ONE (07:49)
[2020-10-16] MEDS: metFORMIN XR 500 MG TAB PO SCH ×2 (08:10→17:16)
[2020-10-16] MEDS: Carvedilol 6.25 MG TAB PO SCH ×2 (08:11→17:16)
[2020-10-16] MEDS: Lantus 1000 UNITS/10 ML VIAL SC SCH (08:11)
[2020-10-16] MEDS: Calcium Carbonate 600 MG + Vit D TAB PO SCH (08:22)
[2020-10-16] MEDS: Loratadine 10 MG TAB PO SCH (08:22)
[2020-10-16] MEDS: Furosemide 20 MG TAB PO SCH (08:22)
[2020-10-16] MEDS: Triamterene/Hydrochlorothiazide 37.5 mg/25 mg Tablet PO SCH (08:22)
[2020-10-16] MEDS: Multivitamin W/ Minerals 1 TAB PO SCH (08:23)
[2020-10-16] MEDS: Cholecalciferol 1,000 UNITS (25 MCG) TAB PO SCH ×2 (08:23→20:57)
[2020-10-16] MEDS: Anastrozole 1 MG TAB PO SCH (08:24)
[2020-10-16] MEDS: Gabapentin 300 MG CAP PO SCH ×3 (08:24→20:55)
[2020-10-16] MEDS: EMPAGLIFLOZIN 10 MG PO SCH (08:29)
[2020-10-16] MEDS: HumaLOG 300 UNITS/3 ML VIAL SC PRN ×4 (08:30→21:30)
[2020-10-16] MEDS: INSULN SC SCH (12:51)
[2020-10-16] MEDS: INSULIN GLULISINE 100 UNIT/ML SC SCH (12:51)
[2020-10-16] MEDS: Aspirin Chewable 81 MG TAB PO SCH (17:16)
[2020-10-16] MEDS: Cyclobenzaprine 10 MG TAB PO SCH (20:55)
[2020-10-16] MEDS: Zolpidem Tartrate 5 MG TAB PO SCH (20:55)
[2020-10-16] MEDS: Atorvastatin Calcium 40 MG TAB PO SCH (20:57)
[2020-10-17] MEDS: Acetaminophen 500 MG TAB PO SCH ×4 (00:10→17:22)
[2020-10-17] MEDS: Levothyroxine Sodium 50 MCG TAB PO SCH (05:48)
[2020-10-17] MEDS: metFORMIN XR 500 MG TAB PO SCH ×2 (07:33→17:17)
[2020-10-17] MEDS: Carvedilol 6.25 MG TAB PO SCH ×2 (07:34→17:17)
[2020-10-17] MEDS: Lantus 1000 UNITS/10 ML VIAL SC SCH (07:37)
[2020-10-17] MEDS: Triamterene/Hydrochlorothiazide 37.5 mg/25 mg Tablet PO SCH (08:02)
[2020-10-17] MEDS: Multivitamin W/ Minerals 1 TAB PO SCH (08:02)
[2020-10-17] MEDS: Cholecalciferol 1,000 UNITS (25 MCG) TAB PO SCH ×2 (08:03→20:56)
[2020-10-17] MEDS: Gabapentin 300 MG CAP PO SCH ×3 (08:03→20:56)
[2020-10-17] MEDS: Calcium Carbonate 600 MG + Vit D TAB PO SCH (08:04)
[2020-10-17] MEDS: HumaLOG 300 UNITS/3 ML VIAL SC PRN ×4 (08:04→21:03)
[2020-10-17] MEDS: Furosemide 20 MG TAB PO SCH (08:04)
[2020-10-17] MEDS: Anastrozole 1 MG TAB PO SCH (08:04)
[2020-10-17] MEDS: Loratadine 10 MG TAB PO SCH (08:04)
[2020-10-17] MEDS: EMPAGLIFLOZIN 10 MG PO SCH (08:09)
[2020-10-17] MEDS ORDERED: Empagliflozin 10 MG TAB PO SCH ×2 (09:00→10:00)
[2020-10-17] MEDS ORDERED: Polyethylene Glycol 3350 17 GM Packet PO SCH (10:00)
[2020-10-17] MEDS: Empagliflozin 10 MG TAB PO SCH (10:10)
[2020-10-17] MEDS: Docusate 100 MG CAP PO PRN (10:11)
[2020-10-17] MEDS: Aspirin Chewable 81 MG TAB PO SCH (17:17)
[2020-10-17] MEDS: Zolpidem Tartrate 5 MG TAB PO SCH (20:56)
[2020-10-17] MEDS: Atorvastatin Calcium 40 MG TAB PO SCH (20:56)
[2020-10-17] MEDS: Cyclobenzaprine 10 MG TAB PO SCH (20:56)
[2020-10-18] MEDS: Acetaminophen 500 MG TAB PO SCH ×4 (00:21→18:56)
[2020-10-18] MEDS: Levothyroxine Sodium 50 MCG TAB PO SCH (05:17)
[2020-10-18] MEDS: Lantus 1000 UNITS/10 ML VIAL SC SCH (08:41)
[2020-10-18] MEDS: HumaLOG 300 UNITS/3 ML VIAL SC PRN ×4 (08:42→20:30)
[2020-10-18] MEDS: Cholecalciferol 1,000 UNITS (25 MCG) TAB PO SCH ×2 (08:45→20:27)
[2020-10-18] MEDS: Polyethylene Glycol 3350 17 GM Packet PO SCH (08:45)
[2020-10-18] MEDS: Carvedilol 6.25 MG TAB PO SCH ×2 (08:47→16:27)
[2020-10-18] MEDS: Triamterene/Hydrochlorothiazide 37.5 mg/25 mg Tablet PO SCH (08:48)
[2020-10-18] MEDS: metFORMIN XR 500 MG TAB PO SCH ×2 (08:50→16:26)
[2020-10-18] MEDS: Multivitamin W/ Minerals 1 TAB PO SCH (08:51)
[2020-10-18] MEDS: Anastrozole 1 MG TAB PO SCH (08:51)
[2020-10-18] MEDS: Calcium Carbonate 600 MG + Vit D TAB PO SCH (08:51)
[2020-10-18] MEDS: Loratadine 10 MG TAB PO SCH (08:52)
[2020-10-18] MEDS: Furosemide 20 MG TAB PO SCH (08:52)
[2020-10-18] MEDS: Gabapentin 300 MG CAP PO SCH ×3 (08:52→20:27)
[2020-10-18] MEDS: Aspirin Chewable 81 MG TAB PO SCH (16:26)
[2020-10-18] MEDS: Atorvastatin Calcium 40 MG TAB PO SCH (20:27)
[2020-10-18] MEDS: Cyclobenzaprine 10 MG TAB PO SCH (20:27)
[2020-10-18] MEDS: Zolpidem Tartrate 5 MG TAB PO SCH (20:27)
[2020-10-19] MEDS: Acetaminophen 500 MG TAB PO SCH ×4 (03:59→18:07)
[2020-10-19] MEDS: Levothyroxine Sodium 50 MCG TAB PO SCH (05:01)
[2020-10-19] MEDS: Empagliflozin 10 MG TAB PO SCH (09:56)
[2020-10-19] MEDS: Anastrozole 1 MG TAB PO SCH (09:56)
[2020-10-19] MEDS: Multivitamin W/ Minerals 1 TAB PO SCH (09:57)
[2020-10-19] MEDS: Gabapentin 300 MG CAP PO SCH ×3 (09:57→20:11)
[2020-10-19] MEDS: Loratadine 10 MG TAB PO SCH (09:58)
[2020-10-19] MEDS: Triamterene/Hydrochlorothiazide 37.5 mg/25 mg Tablet PO SCH (09:58)
[2020-10-19] MEDS: Furosemide 20 MG TAB PO SCH (09:58)
[2020-10-19] MEDS: Carvedilol 6.25 MG TAB PO SCH ×2 (09:58→18:07)
[2020-10-19] MEDS: Calcium Carbonate 600 MG + Vit D TAB PO SCH (09:58)
[2020-10-19] MEDS: Cholecalciferol 1,000 UNITS (25 MCG) TAB PO SCH ×2 (09:59→20:11)
[2020-10-19] MEDS: metFORMIN XR 500 MG TAB PO SCH ×2 (09:59→18:06)
[2020-10-19] MEDS: Lantus 1000 UNITS/10 ML VIAL SC SCH (10:02)
[2020-10-19] MEDS: HumaLOG 300 UNITS/3 ML VIAL SC PRN ×4 (10:03→20:21)
[2020-10-19] MEDS: Polyethylene Glycol 3350 17 GM Packet PO SCH (10:06)
[2020-10-19] MEDS: Aspirin Chewable 81 MG TAB PO SCH (18:07)
[2020-10-19] MEDS: Cyclobenzaprine 10 MG TAB PO SCH (20:10)
[2020-10-19] MEDS: Atorvastatin Calcium 40 MG TAB PO SCH (20:10)
[2020-10-19] MEDS: Zolpidem Tartrate 5 MG TAB PO SCH (20:11)
[2020-10-20] MEDS: Acetaminophen 500 MG TAB PO SCH ×5 (00:25→23:48)
[2020-10-20] MEDS: Levothyroxine Sodium 50 MCG TAB PO SCH (05:17)
[2020-10-20] MEDS: Multivitamin W/ Minerals 1 TAB PO SCH (08:46)
[2020-10-20] MEDS: Cholecalciferol 1,000 UNITS (25 MCG) TAB PO SCH ×2 (08:46→20:39)
[2020-10-20] MEDS: Gabapentin 300 MG CAP PO SCH ×3 (08:46→20:39)
[2020-10-20] MEDS: Carvedilol 6.25 MG TAB PO SCH ×2 (08:46→16:14)
[2020-10-20] MEDS: Empagliflozin 10 MG TAB PO SCH (08:47)
[2020-10-20] MEDS: Furosemide 20 MG TAB PO SCH (08:47)
[2020-10-20] MEDS: Loratadine 10 MG TAB PO SCH (08:47)
[2020-10-20] MEDS: Triamterene/Hydrochlorothiazide 37.5 mg/25 mg Tablet PO SCH (08:47)
[2020-10-20] MEDS: Calcium Carbonate 600 MG + Vit D TAB PO SCH (08:47)
[2020-10-20] MEDS: metFORMIN XR 500 MG TAB PO SCH ×2 (08:47→16:13)
[2020-10-20] MEDS: Anastrozole 1 MG TAB PO SCH (08:47)
[2020-10-20] MEDS: Lantus 1000 UNITS/10 ML VIAL SC SCH (08:48)
[2020-10-20] MEDS: Polyethylene Glycol 3350 17 GM Packet PO SCH (08:48)
[2020-10-20] MEDS: HumaLOG 300 UNITS/3 ML VIAL SC PRN ×3 (12:31→20:41)
[2020-10-20] MEDS: Aspirin Chewable 81 MG TAB PO SCH (16:13)
[2020-10-20] MEDS: Zolpidem Tartrate 5 MG TAB PO SCH (20:39)
[2020-10-20] MEDS: Cyclobenzaprine 10 MG TAB PO SCH (20:39)
[2020-10-20] MEDS: Atorvastatin Calcium 40 MG TAB PO SCH (20:39)
[2020-10-21] MEDS: Levothyroxine Sodium 50 MCG TAB PO SCH (05:16)
[2020-10-21] MEDS: Acetaminophen 500 MG TAB PO SCH ×3 (05:19→17:06)
[2020-10-21] MEDS: Lantus 1000 UNITS/10 ML VIAL SC SCH (08:35)
[2020-10-21] MEDS: Furosemide 20 MG TAB PO SCH (08:36)
[2020-10-21] MEDS: Calcium Carbonate 600 MG + Vit D TAB PO SCH (08:37)
[2020-10-21] MEDS: Triamterene/Hydrochlorothiazide 37.5 mg/25 mg Tablet PO SCH (08:37)
[2020-10-21] MEDS: Cholecalciferol 1,000 UNITS (25 MCG) TAB PO SCH ×2 (08:38→20:26)
[2020-10-21] MEDS: Carvedilol 6.25 MG TAB PO SCH ×2 (08:38→17:07)
[2020-10-21] MEDS: metFORMIN XR 500 MG TAB PO SCH ×2 (08:38→17:08)
[2020-10-21] MEDS: Anastrozole 1 MG TAB PO SCH (08:38)
[2020-10-21] MEDS: Loratadine 10 MG TAB PO SCH (08:38)
[2020-10-21] MEDS: Gabapentin 300 MG CAP PO SCH ×3 (08:39→20:27)
[2020-10-21] MEDS: Multivitamin W/ Minerals 1 TAB PO SCH (08:39)
[2020-10-21] MEDS: Empagliflozin 10 MG TAB PO SCH (08:40)
[2020-10-21] MEDS: Polyethylene Glycol 3350 17 GM Packet PO SCH (11:04)
[2020-10-21] MEDS: traMADol HCl 50 MG TAB PO PRN ×2 (11:24→17:17)
[2020-10-21] MEDS: HumaLOG 300 UNITS/3 ML VIAL SC PRN (11:54)
[2020-10-21] MEDS: Aspirin Chewable 81 MG TAB PO SCH (17:06)
[2020-10-21] MEDS: Atorvastatin Calcium 40 MG TAB PO SCH (20:27)
[2020-10-21] MEDS: Zolpidem Tartrate 5 MG TAB PO SCH (20:27)
[2020-10-21] MEDS: Cyclobenzaprine 10 MG TAB PO SCH (20:27)
[2020-10-22] MEDS: Acetaminophen 500 MG TAB PO SCH ×4 (00:22→17:41)
[2020-10-22] MEDS: Levothyroxine Sodium 50 MCG TAB PO SCH (06:29)
[2020-10-22] MEDS: traMADol HCl 50 MG TAB PO PRN (09:44)
[2020-10-22] MEDS: Polyethylene Glycol 3350 17 GM Packet PO SCH (09:47)
[2020-10-22] MEDS: Lantus 1000 UNITS/10 ML VIAL SC SCH (09:48)
[2020-10-22] MEDS: metFORMIN XR 500 MG TAB PO SCH ×2 (09:49→17:41)
[2020-10-22] MEDS: Carvedilol 6.25 MG TAB PO SCH ×2 (09:49→17:41)
[2020-10-22] MEDS: Cholecalciferol 1,000 UNITS (25 MCG) TAB PO SCH ×2 (09:49→20:18)
[2020-10-22] MEDS: Triamterene/Hydrochlorothiazide 37.5 mg/25 mg Tablet PO SCH (09:50)
[2020-10-22] MEDS: Gabapentin 300 MG CAP PO SCH ×3 (09:52→20:17)
[2020-10-22] MEDS: Calcium Carbonate 600 MG + Vit D TAB PO SCH (09:53)
[2020-10-22] MEDS: Anastrozole 1 MG TAB PO SCH (09:53)
[2020-10-22] MEDS: Multivitamin W/ Minerals 1 TAB PO SCH (09:53)
[2020-10-22] MEDS: Loratadine 10 MG TAB PO SCH (09:53)
[2020-10-22] MEDS: Furosemide 20 MG TAB PO SCH (09:53)
[2020-10-22] MEDS: Empagliflozin 10 MG TAB PO SCH (09:53)
[2020-10-22] MEDS: HumaLOG 300 UNITS/3 ML VIAL SC PRN ×2 (12:13→18:10)
[2020-10-22 12:39] LABS: Hemoglobin 10.2 g/dL (12.0-16.0); Mean Corpuscular HGB CONC 30.8 g/dL (32.0-36.0); Mean Corpuscular Hemoglobin 25.1 pg (27.0-31.0); Mean Corpuscular Volume 81.4 fL (78.0-98.0); Mean Platelet Volume 7.5 fL (7.4-10.4); Platelet Count 344 thou/uL (130-400); RBC Distribution Width 20.4 % (11.5-14.5); Red Blood Cell (RBC) Count 4.06 mill/uL (4.20-5.40); White Blood Cell (WBC) Count 12.7 thou/uL (4.8-10.8)
[2020-10-22] MEDS: Aspirin Chewable 81 MG TAB PO SCH (17:41)
[2020-10-22] MEDS: Zolpidem Tartrate 5 MG TAB PO SCH (20:17)
[2020-10-22] MEDS: Cyclobenzaprine 10 MG TAB PO SCH (20:17)
[2020-10-22] MEDS: Atorvastatin Calcium 40 MG TAB PO SCH (20:18)
[2020-10-22] MEDS: Enoxaparin Sodium 30 MG/0.3 ML SYRINGE SC SCH (20:18)
[2020-10-23] MEDS: Acetaminophen 500 MG TAB PO SCH ×4 (05:10→18:42)
[2020-10-23] MEDS: Levothyroxine Sodium 50 MCG TAB PO SCH (05:10)
[2020-10-23 06:06] LABS: Hemoglobin 10.1 g/dL (12.0-16.0); Platelet Count 275 thou/uL (130-400)
[2020-10-23] MEDS: metFORMIN XR 500 MG TAB PO SCH ×2 (08:35→16:39)
[2020-10-23] MEDS: Cholecalciferol 1,000 UNITS (25 MCG) TAB PO SCH ×2 (08:36→20:42)
[2020-10-23] MEDS: Carvedilol 6.25 MG TAB PO SCH ×2 (08:36→16:39)
[2020-10-23] MEDS: Triamterene/Hydrochlorothiazide 37.5 mg/25 mg Tablet PO SCH (08:36)
[2020-10-23] MEDS: Gabapentin 300 MG CAP PO SCH ×3 (08:37→20:42)
[2020-10-23] MEDS: Anastrozole 1 MG TAB PO SCH (08:38)
[2020-10-23] MEDS: Furosemide 20 MG TAB PO SCH (08:38)
[2020-10-23] MEDS: Amlodipine 5 MG TAB PO SCH (08:39)
[2020-10-23] MEDS: Calcium Carbonate 600 MG + Vit D TAB PO SCH (08:39)
[2020-10-23] MEDS: Loratadine 10 MG TAB PO SCH (08:39)
[2020-10-23] MEDS: Empagliflozin 10 MG TAB PO SCH (08:39)
[2020-10-23] MEDS: Lantus 1000 UNITS/10 ML VIAL SC SCH (08:42)
[2020-10-23] MEDS: Polyethylene Glycol 3350 17 GM Packet PO SCH (08:44)
[2020-10-23] MEDS: Multivitamin W/ Minerals 1 TAB PO SCH (08:46)
[2020-10-23] MEDS: HumaLOG 300 UNITS/3 ML VIAL SC PRN (13:15)
[2020-10-23] MEDS: Aspirin Chewable 81 MG TAB PO SCH (16:39)
[2020-10-23] MEDS: Enoxaparin Sodium 30 MG/0.3 ML SYRINGE SC SCH (20:41)
[2020-10-23] MEDS: Atorvastatin Calcium 40 MG TAB PO SCH (20:42)
[2020-10-23] MEDS: Cyclobenzaprine 10 MG TAB PO SCH (20:42)
[2020-10-23] MEDS: Zolpidem Tartrate 5 MG TAB PO SCH (20:42)
[2020-10-24] MEDS: Acetaminophen 500 MG TAB PO SCH ×4 (01:02→16:42)
[2020-10-24] MEDS: Naproxen 500 MG TAB PO PRN (01:03)
[2020-10-24] MEDS: Levothyroxine Sodium 50 MCG TAB PO SCH (05:24)
[2020-10-24] MEDS: HumaLOG 300 UNITS/3 ML VIAL SC PRN ×3 (07:47→16:54)
[2020-10-24] MEDS: Lantus 1000 UNITS/10 ML VIAL SC SCH (07:47)
[2020-10-24] MEDS: Polyethylene Glycol 3350 17 GM Packet PO SCH (07:48)
[2020-10-24] MEDS: metFORMIN XR 500 MG TAB PO SCH ×2 (07:49→16:43)
[2020-10-24] MEDS: Triamterene/Hydrochlorothiazide 37.5 mg/25 mg Tablet PO SCH (07:49)
[2020-10-24] MEDS: Cholecalciferol 1,000 UNITS (25 MCG) TAB PO SCH ×2 (07:50→20:49)
[2020-10-24] MEDS: Anastrozole 1 MG TAB PO SCH (07:50)
[2020-10-24] MEDS: Loratadine 10 MG TAB PO SCH (07:51)
[2020-10-24] MEDS: Calcium Carbonate 600 MG + Vit D TAB PO SCH (07:51)
[2020-10-24] MEDS: Multivitamin W/ Minerals 1 TAB PO SCH (07:51)
[2020-10-24] MEDS: Gabapentin 300 MG CAP PO SCH ×3 (07:52→20:49)
[2020-10-24] MEDS: Carvedilol 6.25 MG TAB PO SCH ×2 (07:52→16:43)
[2020-10-24] MEDS: Amlodipine 5 MG TAB PO SCH (07:53)
[2020-10-24] MEDS: Furosemide 20 MG TAB PO SCH (07:54)
[2020-10-24] MEDS: Empagliflozin 10 MG TAB PO SCH (07:55)
[2020-10-24] MEDS: traMADol HCl 50 MG TAB PO PRN (10:17)
[2020-10-24] MEDS: Aspirin Chewable 81 MG TAB PO SCH (16:41)
[2020-10-24] MEDS: Cyclobenzaprine 10 MG TAB PO SCH (20:48)
[2020-10-24] MEDS: Zolpidem Tartrate 5 MG TAB PO SCH (20:49)
[2020-10-24] MEDS: Enoxaparin Sodium 30 MG/0.3 ML SYRINGE SC SCH (20:49)
[2020-10-24] MEDS: Atorvastatin Calcium 40 MG TAB PO SCH (20:49)
[2020-10-25] MEDS: Acetaminophen 500 MG TAB PO SCH ×4 (00:10→18:37)
[2020-10-25] MEDS: Levothyroxine Sodium 50 MCG TAB PO SCH (05:09)
[2020-10-25] MEDS: Triamterene/Hydrochlorothiazide 37.5 mg/25 mg Tablet PO SCH (08:25)
[2020-10-25] MEDS: Cholecalciferol 1,000 UNITS (25 MCG) TAB PO SCH ×2 (08:25→21:54)
[2020-10-25] MEDS: metFORMIN XR 500 MG TAB PO SCH ×2 (08:25→16:22)
[2020-10-25] MEDS: Carvedilol 6.25 MG TAB PO SCH ×2 (08:25→16:22)
[2020-10-25] MEDS: Multivitamin W/ Minerals 1 TAB PO SCH (08:26)
[2020-10-25] MEDS: Empagliflozin 10 MG TAB PO SCH (08:26)
[2020-10-25] MEDS: Gabapentin 300 MG CAP PO SCH ×3 (08:26→21:54)
[2020-10-25] MEDS: Amlodipine 5 MG TAB PO SCH (08:26)
[2020-10-25] MEDS: Anastrozole 1 MG TAB PO SCH (08:27)
[2020-10-25] MEDS: Furosemide 20 MG TAB PO SCH (08:27)
[2020-10-25] MEDS: Calcium Carbonate 600 MG + Vit D TAB PO SCH (08:27)
[2020-10-25] MEDS: Loratadine 10 MG TAB PO SCH (08:27)
[2020-10-25] MEDS: Lantus 1000 UNITS/10 ML VIAL SC SCH (08:30)
[2020-10-25] MEDS: HumaLOG 300 UNITS/3 ML VIAL SC PRN ×3 (09:51→18:37)
[2020-10-25] MEDS: Polyethylene Glycol 3350 17 GM Packet PO SCH (09:51)
[2020-10-25] MEDS: Aspirin Chewable 81 MG TAB PO SCH (16:22)
[2020-10-25] MEDS: Cyclobenzaprine 10 MG TAB PO SCH (21:53)
[2020-10-25] MEDS: Atorvastatin Calcium 40 MG TAB PO SCH (21:54)
[2020-10-25] MEDS: Enoxaparin Sodium 30 MG/0.3 ML SYRINGE SC SCH (21:54)
[2020-10-25] MEDS: Zolpidem Tartrate 5 MG TAB PO SCH (21:54)
[2020-10-26] MEDS: Acetaminophen 500 MG TAB PO SCH ×4 (00:30→17:22)
[2020-10-26] MEDS: Levothyroxine Sodium 50 MCG TAB PO SCH (05:30)
[2020-10-26 06:16] LABS: Hemoglobin 12.3 g/dL (12.0-16.0); Platelet Count 331 thou/uL (130-400)
[2020-10-26] MEDS: Cholecalciferol 1,000 UNITS (25 MCG) TAB PO SCH ×2 (08:00→20:43)
[2020-10-26] MEDS: metFORMIN XR 500 MG TAB PO SCH ×2 (08:00→17:22)
[2020-10-26] MEDS: Triamterene/Hydrochlorothiazide 37.5 mg/25 mg Tablet PO SCH (08:00)
[2020-10-26] MEDS: Carvedilol 6.25 MG TAB PO SCH ×2 (08:00→17:23)
[2020-10-26] MEDS: Gabapentin 300 MG CAP PO SCH ×3 (08:01→20:42)
[2020-10-26] MEDS: Calcium Carbonate 600 MG + Vit D TAB PO SCH (08:02)
[2020-10-26] MEDS: Empagliflozin 10 MG TAB PO SCH (08:02)
[2020-10-26] MEDS: Loratadine 10 MG TAB PO SCH (08:02)
[2020-10-26] MEDS: Multivitamin W/ Minerals 1 TAB PO SCH (08:02)
[2020-10-26] MEDS: Anastrozole 1 MG TAB PO SCH (08:03)
[2020-10-26] MEDS: Amlodipine 5 MG TAB PO SCH (08:03)
[2020-10-26] MEDS: Furosemide 20 MG TAB PO SCH (08:03)
[2020-10-26] MEDS: Polyethylene Glycol 3350 17 GM Packet PO SCH (08:04)
[2020-10-26] MEDS: HumaLOG 300 UNITS/3 ML VIAL SC PRN ×4 (08:16→21:10)
[2020-10-26] MEDS: Lantus 1000 UNITS/10 ML VIAL SC SCH (08:16)
[2020-10-26] MEDS: Aspirin Chewable 81 MG TAB PO SCH (17:23)
[2020-10-26] MEDS: Cyclobenzaprine 10 MG TAB PO SCH (20:42)
[2020-10-26] MEDS: Atorvastatin Calcium 40 MG TAB PO SCH (20:43)
[2020-10-26] MEDS: Zolpidem Tartrate 5 MG TAB PO SCH (20:43)
[2020-10-26] MEDS: Enoxaparin Sodium 30 MG/0.3 ML SYRINGE SC SCH (20:43)
[2020-10-27] MEDS: Naproxen 500 MG TAB PO PRN (01:22)
[2020-10-27] MEDS: Acetaminophen 500 MG TAB PO SCH ×5 (01:29→23:48)
[2020-10-27] MEDS: traMADol HCl 50 MG TAB PO PRN (02:51)
[2020-10-27] MEDS: Levothyroxine Sodium 50 MCG TAB PO SCH (05:45)
[2020-10-27] MEDS: Lantus 1000 UNITS/10 ML VIAL SC SCH (08:57)
[2020-10-27] MEDS: Empagliflozin 10 MG TAB PO SCH (08:58)
[2020-10-27] MEDS: Triamterene/Hydrochlorothiazide 37.5 mg/25 mg Tablet PO SCH (08:58)
[2020-10-27] MEDS: HumaLOG 300 UNITS/3 ML VIAL SC PRN ×2 (08:58→12:18)
[2020-10-27] MEDS: Loratadine 10 MG TAB PO SCH (08:58)
[2020-10-27] MEDS: metFORMIN XR 500 MG TAB PO SCH ×2 (08:58→16:53)
[2020-10-27] MEDS: Cholecalciferol 1,000 UNITS (25 MCG) TAB PO SCH ×2 (08:59→20:54)
[2020-10-27] MEDS: Amlodipine 5 MG TAB PO SCH (08:59)
[2020-10-27] MEDS: Carvedilol 6.25 MG TAB PO SCH ×2 (08:59→16:54)
[2020-10-27] MEDS: Multivitamin W/ Minerals 1 TAB PO SCH (08:59)
[2020-10-27] MEDS: Gabapentin 300 MG CAP PO SCH ×3 (09:00→20:55)
[2020-10-27] MEDS: Calcium Carbonate 600 MG + Vit D TAB PO SCH (09:00)
[2020-10-27] MEDS: Furosemide 20 MG TAB PO SCH (09:00)
[2020-10-27] MEDS: Anastrozole 1 MG TAB PO SCH (09:00)
[2020-10-27] MEDS: Polyethylene Glycol 3350 17 GM Packet PO SCH (09:01)
[2020-10-27] MEDS: Aspirin Chewable 81 MG TAB PO SCH (16:54)
[2020-10-27] MEDS: Docusate 100 MG CAP PO PRN (16:56)
[2020-10-27] MEDS: Cyclobenzaprine 10 MG TAB PO SCH (20:54)
[2020-10-27] MEDS: Enoxaparin Sodium 30 MG/0.3 ML SYRINGE SC SCH (20:54)
[2020-10-27] MEDS: Zolpidem Tartrate 5 MG TAB PO SCH (20:55)
[2020-10-27] MEDS: Atorvastatin Calcium 40 MG TAB PO SCH (20:55)
[2020-10-28] MEDS: Levothyroxine Sodium 50 MCG TAB PO SCH (05:40)
[2020-10-28] MEDS: Acetaminophen 500 MG TAB PO SCH ×3 (05:40→17:03)
[2020-10-28] MEDS: Carvedilol 6.25 MG TAB PO SCH ×2 (09:11→17:04)
[2020-10-28] MEDS: metFORMIN XR 500 MG TAB PO SCH ×2 (09:17→17:05)
[2020-10-28] MEDS: Multivitamin W/ Minerals 1 TAB PO SCH (09:18)
[2020-10-28] MEDS: Triamterene/Hydrochlorothiazide 37.5 mg/25 mg Tablet PO SCH (09:18)
[2020-10-28] MEDS: Cholecalciferol 1,000 UNITS (25 MCG) TAB PO SCH ×2 (09:22→20:32)
[2020-10-28] MEDS: Amlodipine 5 MG TAB PO SCH (09:23)
[2020-10-28] MEDS: Empagliflozin 10 MG TAB PO SCH (09:24)
[2020-10-28] MEDS: Furosemide 20 MG TAB PO SCH (09:24)
[2020-10-28] MEDS: Calcium Carbonate 600 MG + Vit D TAB PO SCH (09:24)
[2020-10-28] MEDS: Loratadine 10 MG TAB PO SCH (09:24)
[2020-10-28] MEDS: Gabapentin 300 MG CAP PO SCH ×3 (09:24→20:32)
[2020-10-28] MEDS: Polyethylene Glycol 3350 17 GM Packet PO SCH (09:25)
[2020-10-28] MEDS: Anastrozole 1 MG TAB PO SCH (09:25)
[2020-10-28] MEDS: Lantus 1000 UNITS/10 ML VIAL SC SCH (09:28)
[2020-10-28] MEDS: HumaLOG 300 UNITS/3 ML VIAL SC PRN ×2 (09:35→12:10)
[2020-10-28] MEDS: Aspirin Chewable 81 MG TAB PO SCH (17:06)
[2020-10-28] MEDS: Zolpidem Tartrate 5 MG TAB PO SCH (20:31)
[2020-10-28] MEDS: Enoxaparin Sodium 30 MG/0.3 ML SYRINGE SC SCH (20:31)
[2020-10-28] MEDS: Atorvastatin Calcium 40 MG TAB PO SCH (20:32)
[2020-10-28] MEDS: Cyclobenzaprine 10 MG TAB PO SCH (20:32)
[2020-10-29] MEDS: Acetaminophen 500 MG TAB PO SCH ×4 (00:17→17:54)
[2020-10-29] MEDS: Naproxen 500 MG TAB PO PRN (03:03)
[2020-10-29] MEDS: Levothyroxine Sodium 50 MCG TAB PO SCH (05:49)
[2020-10-29 06:28] LABS: Hemoglobin 10.1 g/dL (12.0-16.0); Platelet Count 372 thou/uL (130-400)
[2020-10-29] MEDS: Polyethylene Glycol 3350 17 GM Packet PO SCH (10:58)
[2020-10-29] MEDS: Lantus 1000 UNITS/10 ML VIAL SC SCH (10:59)
[2020-10-29] MEDS: Calcium Carbonate 600 MG + Vit D TAB PO SCH (11:01)
[2020-10-29] MEDS: Triamterene/Hydrochlorothiazide 37.5 mg/25 mg Tablet PO SCH (11:01)
[2020-10-29] MEDS: Cholecalciferol 1,000 UNITS (25 MCG) TAB PO SCH ×2 (11:02→20:44)
[2020-10-29] MEDS: Multivitamin W/ Minerals 1 TAB PO SCH (11:02)
[2020-10-29] MEDS: metFORMIN XR 500 MG TAB PO SCH ×2 (11:02→16:57)
[2020-10-29] MEDS: Anastrozole 1 MG TAB PO SCH (11:02)
[2020-10-29] MEDS: Amlodipine 5 MG TAB PO SCH (11:03)
[2020-10-29] MEDS: Carvedilol 6.25 MG TAB PO SCH ×2 (11:05→16:57)
[2020-10-29] MEDS: Loratadine 10 MG TAB PO SCH (11:06)
[2020-10-29] MEDS: Gabapentin 300 MG CAP PO SCH ×3 (11:06→20:43)
[2020-10-29] MEDS: Furosemide 20 MG TAB PO SCH (11:06)
[2020-10-29] MEDS: Empagliflozin 10 MG TAB PO SCH (11:07)
[2020-10-29] MEDS: HumaLOG 300 UNITS/3 ML VIAL SC PRN ×2 (12:17→16:56)
[2020-10-29] MEDS: Aspirin Chewable 81 MG TAB PO SCH (16:57)
[2020-10-29] MEDS: traMADol HCl 50 MG TAB PO PRN (16:58)
[2020-10-29] MEDS ORDERED: Ondansetron ODT 4 MG TAB PO PRN (19:36)
[2020-10-29] MEDS: Zolpidem Tartrate 5 MG TAB PO SCH (20:44)
[2020-10-29] MEDS: Cyclobenzaprine 10 MG TAB PO SCH (20:44)
[2020-10-29] MEDS: Atorvastatin Calcium 40 MG TAB PO SCH (20:44)
[2020-10-29] MEDS: Enoxaparin Sodium 30 MG/0.3 ML SYRINGE SC SCH (20:44)
[2020-10-30] MEDS: Acetaminophen 500 MG TAB PO SCH ×4 (00:24→17:26)
[2020-10-30] MEDS: Levothyroxine Sodium 50 MCG TAB PO SCH (05:54)
[2020-10-30] MEDS: Polyethylene Glycol 3350 17 GM Packet PO SCH (08:30)
[2020-10-30] MEDS: Anastrozole 1 MG TAB PO SCH (08:31)
[2020-10-30] MEDS: Cholecalciferol 1,000 UNITS (25 MCG) TAB PO SCH ×2 (08:31→21:04)
[2020-10-30] MEDS: Multivitamin W/ Minerals 1 TAB PO SCH (08:32)
[2020-10-30] MEDS: Triamterene/Hydrochlorothiazide 37.5 mg/25 mg Tablet PO SCH (08:32)
[2020-10-30] MEDS: Loratadine 10 MG TAB PO SCH (08:33)
[2020-10-30] MEDS: Furosemide 20 MG TAB PO SCH (08:33)
[2020-10-30] MEDS: metFORMIN XR 500 MG TAB PO SCH ×2 (08:33→17:25)
[2020-10-30] MEDS: Calcium Carbonate 600 MG + Vit D TAB PO SCH (08:33)
[2020-10-30] MEDS: Empagliflozin 10 MG TAB PO SCH (08:34)
[2020-10-30] MEDS: Amlodipine 5 MG TAB PO SCH (08:34)
[2020-10-30] MEDS: Gabapentin 300 MG CAP PO SCH ×3 (08:36→21:04)
[2020-10-30] MEDS: Naproxen 500 MG TAB PO PRN (08:37)
[2020-10-30] MEDS: HumaLOG 300 UNITS/3 ML VIAL SC PRN ×3 (08:39→17:25)
[2020-10-30] MEDS: Lantus 1000 UNITS/10 ML VIAL SC SCH (08:39)
[2020-10-30] MEDS: Carvedilol 6.25 MG TAB PO SCH ×2 (09:15→17:26)
[2020-10-30] MEDS: Aspirin Chewable 81 MG TAB PO SCH (17:26)
[2020-10-30] MEDS: Atorvastatin Calcium 40 MG TAB PO SCH (21:04)
[2020-10-30] MEDS: Enoxaparin Sodium 30 MG/0.3 ML SYRINGE SC SCH (21:05)
[2020-10-30] MEDS: Cyclobenzaprine 10 MG TAB PO SCH (21:05)
[2020-10-31] MEDS: Zolpidem Tartrate 5 MG TAB PO SCH ×2 (03:06→21:37)
[2020-10-31] MEDS: Levothyroxine Sodium 50 MCG TAB PO SCH (05:06)
[2020-10-31] MEDS: Acetaminophen 500 MG TAB PO SCH ×5 (05:07→17:42)
[2020-10-31] MEDS: Polyethylene Glycol 3350 17 GM Packet PO SCH (08:39)
[2020-10-31] MEDS: Triamterene/Hydrochlorothiazide 37.5 mg/25 mg Tablet PO SCH (08:39)
[2020-10-31] MEDS: metFORMIN XR 500 MG TAB PO SCH ×2 (08:40→16:46)
[2020-10-31] MEDS: Carvedilol 6.25 MG TAB PO SCH ×2 (08:40→16:46)
[2020-10-31] MEDS: Multivitamin W/ Minerals 1 TAB PO SCH (08:40)
[2020-10-31] MEDS: Anastrozole 1 MG TAB PO SCH (08:41)
[2020-10-31] MEDS: Cholecalciferol 1,000 UNITS (25 MCG) TAB PO SCH ×2 (08:41→21:37)
[2020-10-31] MEDS: Gabapentin 300 MG CAP PO SCH ×3 (08:41→21:37)
[2020-10-31] MEDS: Amlodipine 5 MG TAB PO SCH (08:42)
[2020-10-31] MEDS: Furosemide 20 MG TAB PO SCH (08:42)
[2020-10-31] MEDS: Calcium Carbonate 600 MG + Vit D TAB PO SCH (08:43)
[2020-10-31] MEDS: Empagliflozin 10 MG TAB PO SCH (08:43)
[2020-10-31] MEDS: Loratadine 10 MG TAB PO SCH (08:44)
[2020-10-31] MEDS: Lantus 1000 UNITS/10 ML VIAL SC SCH (08:44)
[2020-10-31] MEDS: HumaLOG 300 UNITS/3 ML VIAL SC PRN ×3 (11:39→21:42)
[2020-10-31] MEDS: Aspirin Chewable 81 MG TAB PO SCH (16:46)
[2020-10-31] MEDS: Atorvastatin Calcium 40 MG TAB PO SCH (21:37)
[2020-10-31] MEDS: Cyclobenzaprine 10 MG TAB PO SCH (21:37)
[2020-10-31] MEDS: Enoxaparin Sodium 30 MG/0.3 ML SYRINGE SC SCH (21:38)
[2020-11-01] MEDS: Acetaminophen 500 MG TAB PO SCH ×4 (00:42→18:12)
[2020-11-01 03:08] LABS: Hemoglobin 9.6 g/dL (12.0-16.0); Platelet Count 311 thou/uL (130-400)
[2020-11-01] MEDS: Levothyroxine Sodium 50 MCG TAB PO SCH (05:09)
[2020-11-01] MEDS: Lantus 1000 UNITS/10 ML VIAL SC SCH (09:10)
[2020-11-01] MEDS: Multivitamin W/ Minerals 1 TAB PO SCH (09:12)
[2020-11-01] MEDS: Gabapentin 300 MG CAP PO SCH ×3 (09:12→21:33)
[2020-11-01] MEDS: Empagliflozin 10 MG TAB PO SCH (09:13)
[2020-11-01] MEDS: Calcium Carbonate 600 MG + Vit D TAB PO SCH (09:13)
[2020-11-01] MEDS: Carvedilol 6.25 MG TAB PO SCH ×2 (09:13→16:31)
[2020-11-01] MEDS: Furosemide 20 MG TAB PO SCH (09:16)
[2020-11-01] MEDS: Amlodipine 5 MG TAB PO SCH (09:16)
[2020-11-01] MEDS: Anastrozole 1 MG TAB PO SCH (09:16)
[2020-11-01] MEDS: Loratadine 10 MG TAB PO SCH (09:18)
[2020-11-01] MEDS: Cholecalciferol 1,000 UNITS (25 MCG) TAB PO SCH ×2 (09:19→21:32)
[2020-11-01] MEDS: Triamterene/Hydrochlorothiazide 37.5 mg/25 mg Tablet PO SCH (09:19)
[2020-11-01] MEDS: Polyethylene Glycol 3350 17 GM Packet PO SCH (09:20)
[2020-11-01] MEDS: metFORMIN XR 500 MG TAB PO SCH ×2 (09:20→16:31)
[2020-11-01] MEDS: HumaLOG 300 UNITS/3 ML VIAL SC PRN ×2 (12:51→21:38)
[2020-11-01] MEDS: Aspirin Chewable 81 MG TAB PO SCH (16:30)
[2020-11-01] MEDS: Atorvastatin Calcium 40 MG TAB PO SCH (21:32)
[2020-11-01] MEDS: Enoxaparin Sodium 30 MG/0.3 ML SYRINGE SC SCH (21:33)
[2020-11-01] MEDS: Zolpidem Tartrate 5 MG TAB PO SCH (21:33)
[2020-11-01] MEDS: Cyclobenzaprine 10 MG TAB PO SCH (21:33)
[2020-11-01] MEDS: traMADol HCl 50 MG TAB PO PRN (21:37)
[2020-11-02] MEDS: Acetaminophen 500 MG TAB PO SCH ×4 (00:07→17:05)
[2020-11-02] MEDS: Levothyroxine Sodium 50 MCG TAB PO SCH (05:12)
[2020-11-02] MEDS: Polyethylene Glycol 3350 17 GM Packet PO SCH (08:27)
[2020-11-02] MEDS: Lantus 1000 UNITS/10 ML VIAL SC SCH (08:28)
[2020-11-02] MEDS: metFORMIN XR 500 MG TAB PO SCH ×2 (08:30→17:05)
[2020-11-02] MEDS: Carvedilol 6.25 MG TAB PO SCH ×2 (08:30→17:04)
[2020-11-02] MEDS: Multivitamin W/ Minerals 1 TAB PO SCH (08:31)
[2020-11-02] MEDS: Triamterene/Hydrochlorothiazide 37.5 mg/25 mg Tablet PO SCH (08:31)
[2020-11-02] MEDS: Gabapentin 300 MG CAP PO SCH ×3 (08:31→21:06)
[2020-11-02] MEDS: Calcium Carbonate 600 MG + Vit D TAB PO SCH (08:32)
[2020-11-02] MEDS: Loratadine 10 MG TAB PO SCH (08:32)
[2020-11-02] MEDS: Cholecalciferol 1,000 UNITS (25 MCG) TAB PO SCH ×2 (08:32→21:07)
[2020-11-02] MEDS: Anastrozole 1 MG TAB PO SCH (08:33)
[2020-11-02] MEDS: Amlodipine 5 MG TAB PO SCH (08:33)
[2020-11-02] MEDS: Furosemide 20 MG TAB PO SCH (08:35)
[2020-11-02] MEDS: Empagliflozin 10 MG TAB PO SCH (08:35)
[2020-11-02] MEDS: HumaLOG 300 UNITS/3 ML VIAL SC PRN ×2 (12:01→21:03)
[2020-11-02] MEDS: Aspirin Chewable 81 MG TAB PO SCH (17:04)
[2020-11-02] MEDS: Enoxaparin Sodium 30 MG/0.3 ML SYRINGE SC SCH (21:04)
[2020-11-02] MEDS: traMADol HCl 50 MG TAB PO PRN (21:05)
[2020-11-02] MEDS: Zolpidem Tartrate 5 MG TAB PO SCH (21:05)
[2020-11-02] MEDS: Cyclobenzaprine 10 MG TAB PO SCH (21:05)
[2020-11-02] MEDS: Atorvastatin Calcium 40 MG TAB PO SCH (21:05)
[2020-11-03] MEDS: Acetaminophen 500 MG TAB PO SCH ×4 (01:11→17:27)
[2020-11-03] MEDS: Levothyroxine Sodium 50 MCG TAB PO SCH (05:41)
[2020-11-03] MEDS: Polyethylene Glycol 3350 17 GM Packet PO SCH (07:57)
[2020-11-03] MEDS: Triamterene/Hydrochlorothiazide 37.5 mg/25 mg Tablet PO SCH (07:58)
[2020-11-03] MEDS: Furosemide 20 MG TAB PO SCH (07:59)
[2020-11-03] MEDS: Empagliflozin 10 MG TAB PO SCH (07:59)
[2020-11-03] MEDS: metFORMIN XR 500 MG TAB PO SCH ×2 (07:59→17:26)
[2020-11-03] MEDS: Anastrozole 1 MG TAB PO SCH (07:59)
[2020-11-03] MEDS: Multivitamin W/ Minerals 1 TAB PO SCH (08:00)
[2020-11-03] MEDS: Loratadine 10 MG TAB PO SCH (08:00)
[2020-11-03] MEDS: Carvedilol 6.25 MG TAB PO SCH ×2 (08:00→17:26)
[2020-11-03] MEDS: Amlodipine 5 MG TAB PO SCH (08:01)
[2020-11-03] MEDS: Calcium Carbonate 600 MG + Vit D TAB PO SCH (08:01)
[2020-11-03] MEDS: Gabapentin 300 MG CAP PO SCH ×3 (08:03→20:34)
[2020-11-03] MEDS: Cholecalciferol 1,000 UNITS (25 MCG) TAB PO SCH ×2 (08:03→20:33)
[2020-11-03] MEDS: Lantus 1000 UNITS/10 ML VIAL SC SCH (08:04)
[2020-11-03] MEDS: Docusate 100 MG CAP PO PRN (08:53)
[2020-11-03] MEDS: HumaLOG 300 UNITS/3 ML VIAL SC PRN (12:39)
[2020-11-03] MEDS: Aspirin Chewable 81 MG TAB PO SCH (17:26)
[2020-11-03] MEDS: Enoxaparin Sodium 30 MG/0.3 ML SYRINGE SC SCH (20:31)
[2020-11-03] MEDS: Cyclobenzaprine 10 MG TAB PO SCH (20:33)
[2020-11-03] MEDS: Atorvastatin Calcium 40 MG TAB PO SCH (20:34)
[2020-11-03] MEDS: Zolpidem Tartrate 5 MG TAB PO SCH (20:34)
[2020-11-04] MEDS: Acetaminophen 500 MG TAB PO SCH ×6 (00:07→23:59)
[2020-11-04 05:20] LABS: Hemoglobin 10.4 g/dL (12.0-16.0); Platelet Count 355 thou/uL (130-400)
[2020-11-04] MEDS: Levothyroxine Sodium 50 MCG TAB PO SCH (05:48)
[2020-11-04] MEDS: Anastrozole 1 MG TAB PO SCH (08:12)
[2020-11-04] MEDS: Gabapentin 300 MG CAP PO SCH ×3 (08:13→20:36)
[2020-11-04] MEDS: Furosemide 20 MG TAB PO SCH (08:14)
[2020-11-04] MEDS: Amlodipine 5 MG TAB PO SCH (08:14)
[2020-11-04] MEDS: Cholecalciferol 1,000 UNITS (25 MCG) TAB PO SCH ×2 (08:16→20:36)
[2020-11-04] MEDS: metFORMIN XR 500 MG TAB PO SCH ×2 (08:17→17:16)
[2020-11-04] MEDS: Multivitamin W/ Minerals 1 TAB PO SCH (08:17)
[2020-11-04] MEDS: Triamterene/Hydrochlorothiazide 37.5 mg/25 mg Tablet PO SCH (08:17)
[2020-11-04] MEDS: Calcium Carbonate 600 MG + Vit D TAB PO SCH (08:17)
[2020-11-04] MEDS: Loratadine 10 MG TAB PO SCH (08:18)
[2020-11-04] MEDS: Empagliflozin 10 MG TAB PO SCH (08:18)
[2020-11-04] MEDS: Carvedilol 6.25 MG TAB PO SCH ×2 (08:18→17:16)
[2020-11-04] MEDS: Polyethylene Glycol 3350 17 GM Packet PO SCH (08:19)
[2020-11-04] MEDS: Lantus 1000 UNITS/10 ML VIAL SC SCH (08:29)
[2020-11-04] MEDS: HumaLOG 300 UNITS/3 ML VIAL SC PRN ×2 (12:27→20:26)
[2020-11-04] MEDS: Aspirin Chewable 81 MG TAB PO SCH (17:16)
[2020-11-04] MEDS: Enoxaparin Sodium 30 MG/0.3 ML SYRINGE SC SCH (20:32)
[2020-11-04] MEDS: Atorvastatin Calcium 40 MG TAB PO SCH (20:35)
[2020-11-04] MEDS: Cyclobenzaprine 10 MG TAB PO SCH (20:35)
[2020-11-04] MEDS: Zolpidem Tartrate 5 MG TAB PO SCH (20:36)
[2020-11-05] MEDS: Levothyroxine Sodium 50 MCG TAB PO SCH (05:40)
[2020-11-05] MEDS: Acetaminophen 500 MG TAB PO SCH ×3 (06:20→18:36)
[2020-11-05] MEDS: Polyethylene Glycol 3350 17 GM Packet PO SCH (10:08)
[2020-11-05] MEDS: Triamterene/Hydrochlorothiazide 37.5 mg/25 mg Tablet PO SCH (10:08)
[2020-11-05] MEDS: metFORMIN XR 500 MG TAB PO SCH ×2 (10:08→17:43)
[2020-11-05] MEDS: Carvedilol 6.25 MG TAB PO SCH ×2 (10:09→17:43)
[2020-11-05] MEDS: Empagliflozin 10 MG TAB PO SCH (10:10)
[2020-11-05] MEDS: Anastrozole 1 MG TAB PO SCH (10:10)
[2020-11-05] MEDS: Calcium Carbonate 600 MG + Vit D TAB PO SCH (10:10)
[2020-11-05] MEDS: Cholecalciferol 1,000 UNITS (25 MCG) TAB PO SCH ×2 (10:10→21:49)
[2020-11-05] MEDS: Loratadine 10 MG TAB PO SCH (10:10)
[2020-11-05] MEDS: Furosemide 20 MG TAB PO SCH (10:10)
[2020-11-05] MEDS: Amlodipine 5 MG TAB PO SCH (10:11)
[2020-11-05] MEDS: Gabapentin 300 MG CAP PO SCH ×3 (10:12→21:50)
[2020-11-05] MEDS: Multivitamin W/ Minerals 1 TAB PO SCH (10:13)
[2020-11-05] MEDS: Lantus 1000 UNITS/10 ML VIAL SC SCH (10:14)
[2020-11-05] MEDS: Aspirin Chewable 81 MG TAB PO SCH (17:43)
[2020-11-05] MEDS: Atorvastatin Calcium 40 MG TAB PO SCH (21:49)
[2020-11-05] MEDS: Cyclobenzaprine 10 MG TAB PO SCH (21:49)
[2020-11-05] MEDS: Zolpidem Tartrate 5 MG TAB PO SCH (21:49)
[2020-11-05] MEDS: Enoxaparin Sodium 30 MG/0.3 ML SYRINGE SC SCH (21:49)
[2020-11-06] MEDS: Acetaminophen 500 MG TAB PO SCH ×4 (02:00→18:26)
[2020-11-06] MEDS: Levothyroxine Sodium 50 MCG TAB PO SCH (04:58)
[2020-11-06] MEDS: Lantus 1000 UNITS/10 ML VIAL SC SCH (10:59)
[2020-11-06] MEDS: Cholecalciferol 1,000 UNITS (25 MCG) TAB PO SCH ×2 (10:59→21:29)
[2020-11-06] MEDS: Triamterene/Hydrochlorothiazide 37.5 mg/25 mg Tablet PO SCH (11:00)
[2020-11-06] MEDS: metFORMIN XR 500 MG TAB PO SCH ×2 (11:00→16:23)
[2020-11-06] MEDS: Carvedilol 6.25 MG TAB PO SCH ×2 (11:00→16:23)
[2020-11-06] MEDS: Gabapentin 300 MG CAP PO SCH ×3 (11:02→21:29)
[2020-11-06] MEDS: Multivitamin W/ Minerals 1 TAB PO SCH (11:02)
[2020-11-06] MEDS: Anastrozole 1 MG TAB PO SCH (11:02)
[2020-11-06] MEDS: Calcium Carbonate 600 MG + Vit D TAB PO SCH (11:03)
[2020-11-06] MEDS: Loratadine 10 MG TAB PO SCH (11:03)
[2020-11-06] MEDS: Amlodipine 5 MG TAB PO SCH (11:03)
[2020-11-06] MEDS: Furosemide 20 MG TAB PO SCH (11:05)
[2020-11-06] MEDS: Polyethylene Glycol 3350 17 GM Packet PO SCH (11:05)
[2020-11-06] MEDS: Empagliflozin 10 MG TAB PO SCH (11:05)
[2020-11-06] MEDS: Aspirin Chewable 81 MG TAB PO SCH (16:22)
[2020-11-06] MEDS: Enoxaparin Sodium 30 MG/0.3 ML SYRINGE SC SCH (21:28)
[2020-11-06] MEDS: Cyclobenzaprine 10 MG TAB PO SCH (21:29)
[2020-11-06] MEDS: Atorvastatin Calcium 40 MG TAB PO SCH (21:30)
[2020-11-06] MEDS: Zolpidem Tartrate 5 MG TAB PO SCH (21:30)
[2020-11-06] MEDS: traMADol HCl 50 MG TAB PO PRN (21:48)
[2020-11-07] MEDS: Acetaminophen 500 MG TAB PO SCH ×5 (00:15→23:44)
[2020-11-07 05:45] LABS: Hemoglobin 10.9 g/dL (12.0-16.0); Platelet Count 343 thou/uL (130-400)
[2020-11-07] MEDS: Polyethylene Glycol 3350 17 GM Packet PO SCH (05:58)
[2020-11-07] MEDS: Levothyroxine Sodium 50 MCG TAB PO SCH (05:59)
[2020-11-07] MEDS: Naproxen 500 MG TAB PO PRN (06:00)
[2020-11-07] MEDS: metFORMIN XR 500 MG TAB PO SCH ×2 (08:45→17:24)
[2020-11-07] MEDS: Carvedilol 6.25 MG TAB PO SCH ×2 (08:45→17:24)
[2020-11-07] MEDS: Triamterene/Hydrochlorothiazide 37.5 mg/25 mg Tablet PO SCH (08:45)
[2020-11-07] MEDS: Cholecalciferol 1,000 UNITS (25 MCG) TAB PO SCH ×2 (08:45→21:46)
[2020-11-07] MEDS: Lantus 1000 UNITS/10 ML VIAL SC SCH (08:47)
[2020-11-07] MEDS: Gabapentin 300 MG CAP PO SCH ×3 (08:49→21:46)
[2020-11-07] MEDS: Empagliflozin 10 MG TAB PO SCH (08:49)
[2020-11-07] MEDS: Furosemide 20 MG TAB PO SCH (08:50)
[2020-11-07] MEDS: Loratadine 10 MG TAB PO SCH (08:50)
[2020-11-07] MEDS: Amlodipine 5 MG TAB PO SCH (08:50)
[2020-11-07] MEDS: Calcium Carbonate 600 MG + Vit D TAB PO SCH (08:51)
[2020-11-07] MEDS: Anastrozole 1 MG TAB PO SCH (08:51)
[2020-11-07] MEDS: Multivitamin W/ Minerals 1 TAB PO SCH (08:52)
[2020-11-07] MEDS: HumaLOG 300 UNITS/3 ML VIAL SC PRN (13:00)
[2020-11-07] MEDS: Aspirin Chewable 81 MG TAB PO SCH (17:24)
[2020-11-07] MEDS: Cyclobenzaprine 10 MG TAB PO SCH (21:46)
[2020-11-07] MEDS: Atorvastatin Calcium 40 MG TAB PO SCH (21:46)
[2020-11-07] MEDS: Zolpidem Tartrate 5 MG TAB PO SCH (21:46)
[2020-11-07] MEDS: Enoxaparin Sodium 30 MG/0.3 ML SYRINGE SC SCH (21:48)
[2020-11-08] MEDS: Levothyroxine Sodium 50 MCG TAB PO SCH (05:20)
[2020-11-08] MEDS: Acetaminophen 500 MG TAB PO SCH ×3 (05:21→17:57)
[2020-11-08] MEDS: Polyethylene Glycol 3350 17 GM Packet PO SCH (08:35)
[2020-11-08] MEDS: Lantus 1000 UNITS/10 ML VIAL SC SCH (08:36)
[2020-11-08] MEDS: Carvedilol 6.25 MG TAB PO SCH ×2 (08:40→16:02)
[2020-11-08] MEDS: Triamterene/Hydrochlorothiazide 37.5 mg/25 mg Tablet PO SCH (08:41)
[2020-11-08] MEDS: metFORMIN XR 500 MG TAB PO SCH ×2 (08:42→16:02)
[2020-11-08] MEDS: Cholecalciferol 1,000 UNITS (25 MCG) TAB PO SCH ×2 (08:42→21:37)
[2020-11-08] MEDS: Gabapentin 300 MG CAP PO SCH ×3 (08:47→21:35)
[2020-11-08] MEDS: Multivitamin W/ Minerals 1 TAB PO SCH (08:48)
[2020-11-08] MEDS: Calcium Carbonate 600 MG + Vit D TAB PO SCH (08:48)
[2020-11-08] MEDS: Anastrozole 1 MG TAB PO SCH (08:48)
[2020-11-08] MEDS: Amlodipine 5 MG TAB PO SCH (08:48)
[2020-11-08] MEDS: Loratadine 10 MG TAB PO SCH (08:49)
[2020-11-08] MEDS: Empagliflozin 10 MG TAB PO SCH (08:49)
[2020-11-08] MEDS: Furosemide 20 MG TAB PO SCH (08:49)
[2020-11-08] MEDS: HumaLOG 300 UNITS/3 ML VIAL SC PRN (12:10)
[2020-11-08] MEDS: Aspirin Chewable 81 MG TAB PO SCH (16:02)
[2020-11-08] MEDS: Enoxaparin Sodium 30 MG/0.3 ML SYRINGE SC SCH (21:34)
[2020-11-08] MEDS: Cyclobenzaprine 10 MG TAB PO SCH (21:35)
[2020-11-08] MEDS: Zolpidem Tartrate 5 MG TAB PO SCH (21:37)
[2020-11-08] MEDS: Atorvastatin Calcium 40 MG TAB PO SCH (21:37)
[2020-11-09] MEDS: Acetaminophen 500 MG TAB PO SCH ×4 (00:32→18:49)
[2020-11-09] MEDS: traMADol HCl 50 MG TAB PO PRN (01:59)
[2020-11-09] MEDS: Levothyroxine Sodium 50 MCG TAB PO SCH (05:56)
[2020-11-09] MEDS: Lantus 1000 UNITS/10 ML VIAL SC SCH (08:01)
[2020-11-09] MEDS: Cholecalciferol 1,000 UNITS (25 MCG) TAB PO SCH ×2 (08:03→20:48)
[2020-11-09] MEDS: Carvedilol 6.25 MG TAB PO SCH ×2 (08:03→16:36)
[2020-11-09] MEDS: metFORMIN XR 500 MG TAB PO SCH ×2 (08:04→16:35)
[2020-11-09] MEDS: Furosemide 20 MG TAB PO SCH (08:05)
[2020-11-09] MEDS: Calcium Carbonate 600 MG + Vit D TAB PO SCH (08:05)
[2020-11-09] MEDS: Gabapentin 300 MG CAP PO SCH ×3 (08:05→20:49)
[2020-11-09] MEDS: Loratadine 10 MG TAB PO SCH (08:05)
[2020-11-09] MEDS: Empagliflozin 10 MG TAB PO SCH (08:06)
[2020-11-09] MEDS: Amlodipine 5 MG TAB PO SCH (08:06)
[2020-11-09] MEDS: Multivitamin W/ Minerals 1 TAB PO SCH (08:06)
[2020-11-09] MEDS: Triamterene/Hydrochlorothiazide 37.5 mg/25 mg Tablet PO SCH (08:06)
[2020-11-09] MEDS: Anastrozole 1 MG TAB PO SCH (08:08)
[2020-11-09] MEDS: Polyethylene Glycol 3350 17 GM Packet PO SCH (08:09)
[2020-11-09] MEDS: HumaLOG 300 UNITS/3 ML VIAL SC PRN ×2 (12:14→20:47)
[2020-11-09] MEDS: Aspirin Chewable 81 MG TAB PO SCH (16:36)
[2020-11-09] MEDS: Enoxaparin Sodium 30 MG/0.3 ML SYRINGE SC SCH (20:45)
[2020-11-09] MEDS: Cyclobenzaprine 10 MG TAB PO SCH (20:48)
[2020-11-09] MEDS: Atorvastatin Calcium 40 MG TAB PO SCH (20:49)
[2020-11-09] MEDS: Zolpidem Tartrate 5 MG TAB PO SCH (20:50)
[2020-11-10] MEDS: Acetaminophen 500 MG TAB PO SCH ×4 (00:01→18:38)
[2020-11-10] MEDS: Levothyroxine Sodium 50 MCG TAB PO SCH (05:59)
[2020-11-10 06:02] LABS: Hemoglobin 10.6 g/dL (12.0-16.0); Platelet Count 266 thou/uL (130-400)
[2020-11-10] MEDS: metFORMIN XR 500 MG TAB PO SCH ×2 (07:57→18:40)
[2020-11-10] MEDS: Lantus 1000 UNITS/10 ML VIAL SC SCH (07:57)
[2020-11-10] MEDS: Triamterene/Hydrochlorothiazide 37.5 mg/25 mg Tablet PO SCH (07:58)
[2020-11-10] MEDS: Polyethylene Glycol 3350 17 GM Packet PO SCH (07:58)
[2020-11-10] MEDS: Anastrozole 1 MG TAB PO SCH (07:59)
[2020-11-10] MEDS: Multivitamin W/ Minerals 1 TAB PO SCH (08:00)
[2020-11-10] MEDS: Furosemide 20 MG TAB PO SCH (08:00)
[2020-11-10] MEDS: Loratadine 10 MG TAB PO SCH (08:00)
[2020-11-10] MEDS: Amlodipine 5 MG TAB PO SCH (08:01)
[2020-11-10] MEDS: Calcium Carbonate 600 MG + Vit D TAB PO SCH (08:01)
[2020-11-10] MEDS: Gabapentin 300 MG CAP PO SCH ×3 (08:02→21:25)
[2020-11-10] MEDS: Empagliflozin 10 MG TAB PO SCH (08:03)
[2020-11-10] MEDS: Cholecalciferol 1,000 UNITS (25 MCG) TAB PO SCH ×2 (08:03→21:25)
[2020-11-10] MEDS: Carvedilol 6.25 MG TAB PO SCH ×2 (08:03→18:41)
[2020-11-10] MEDS: HumaLOG 300 UNITS/3 ML VIAL SC PRN (12:30)
[2020-11-10] MEDS: Aspirin Chewable 81 MG TAB PO SCH (18:40)
[2020-11-10] MEDS: Zolpidem Tartrate 5 MG TAB PO SCH (21:25)
[2020-11-10] MEDS: Atorvastatin Calcium 40 MG TAB PO SCH (21:25)
[2020-11-10] MEDS: Enoxaparin Sodium 30 MG/0.3 ML SYRINGE SC SCH (21:25)
[2020-11-10] MEDS: Cyclobenzaprine 10 MG TAB PO SCH (21:25)
[2020-11-11] MEDS: Acetaminophen 500 MG TAB PO SCH ×5 (02:18→23:54)
[2020-11-11] MEDS: Levothyroxine Sodium 50 MCG TAB PO SCH (05:02)
[2020-11-11] MEDS: Polyethylene Glycol 3350 17 GM Packet PO SCH (08:03)
[2020-11-11] MEDS: metFORMIN XR 500 MG TAB PO SCH ×2 (08:03→17:20)
[2020-11-11] MEDS: Calcium Carbonate 600 MG + Vit D TAB PO SCH (08:04)
[2020-11-11] MEDS: Multivitamin W/ Minerals 1 TAB PO SCH (08:04)
[2020-11-11] MEDS: Triamterene/Hydrochlorothiazide 37.5 mg/25 mg Tablet PO SCH (08:06)
[2020-11-11] MEDS: Furosemide 20 MG TAB PO SCH (08:06)
[2020-11-11] MEDS: Loratadine 10 MG TAB PO SCH (08:06)
[2020-11-11] MEDS: Cholecalciferol 1,000 UNITS (25 MCG) TAB PO SCH ×2 (08:06→22:04)
[2020-11-11] MEDS: Empagliflozin 10 MG TAB PO SCH (08:06)
[2020-11-11] MEDS: Anastrozole 1 MG TAB PO SCH (08:06)
[2020-11-11] MEDS: Amlodipine 5 MG TAB PO SCH (08:07)
[2020-11-11] MEDS: Carvedilol 6.25 MG TAB PO SCH ×2 (08:09→17:20)
[2020-11-11] MEDS: Gabapentin 300 MG CAP PO SCH ×3 (08:10→22:05)
[2020-11-11] MEDS: Lantus 1000 UNITS/10 ML VIAL SC SCH (08:14)
[2020-11-11] MEDS: HumaLOG 300 UNITS/3 ML VIAL SC PRN (08:15)
[2020-11-11] MEDS ORDERED: traMADol HCl 50 MG TAB ONE (11:22)
[2020-11-11] MEDS ORDERED: Acetaminophen 500 MG TAB ONE (12:35)
[2020-11-11] MEDS: Aspirin Chewable 81 MG TAB PO SCH (17:22)
[2020-11-11] MEDS: traMADol HCl 50 MG TAB PO PRN (22:03)
[2020-11-11] MEDS: Zolpidem Tartrate 5 MG TAB PO SCH (22:04)
[2020-11-11] MEDS: Atorvastatin Calcium 40 MG TAB PO SCH (22:05)
[2020-11-11] MEDS: Enoxaparin Sodium 30 MG/0.3 ML SYRINGE SC SCH (22:05)
[2020-11-11] MEDS: Cyclobenzaprine 10 MG TAB PO SCH (22:05)
[2020-11-12] MEDS: traMADol HCl 50 MG TAB PO PRN ×2 (06:04→17:54)
[2020-11-12] MEDS: Levothyroxine Sodium 50 MCG TAB PO SCH (06:04)
[2020-11-12] MEDS: Acetaminophen 500 MG TAB PO SCH ×3 (06:05→17:53)
[2020-11-12] MEDS: Carvedilol 6.25 MG TAB PO SCH ×2 (09:13→17:10)
[2020-11-12] MEDS: Cholecalciferol 1,000 UNITS (25 MCG) TAB PO SCH ×2 (09:14→22:02)
[2020-11-12] MEDS: Furosemide 20 MG TAB PO SCH (09:14)
[2020-11-12] MEDS: Gabapentin 300 MG CAP PO SCH ×3 (09:15→22:03)
[2020-11-12] MEDS: Empagliflozin 10 MG TAB PO SCH (09:15)
[2020-11-12] MEDS: metFORMIN XR 500 MG TAB PO SCH ×2 (09:16→17:10)
[2020-11-12] MEDS: Amlodipine 5 MG TAB PO SCH (09:16)
[2020-11-12] MEDS: Triamterene/Hydrochlorothiazide 37.5 mg/25 mg Tablet PO SCH (09:17)
[2020-11-12] MEDS: Multivitamin W/ Minerals 1 TAB PO SCH (09:17)
[2020-11-12] MEDS: Anastrozole 1 MG TAB PO SCH (09:17)
[2020-11-12] MEDS: Loratadine 10 MG TAB PO SCH (09:17)
[2020-11-12] MEDS: Calcium Carbonate 600 MG + Vit D TAB PO SCH (09:17)
[2020-11-12] MEDS: Lantus 1000 UNITS/10 ML VIAL SC SCH (09:18)
[2020-11-12] MEDS: Polyethylene Glycol 3350 17 GM Packet PO SCH (09:18)
[2020-11-12] MEDS: Aspirin Chewable 81 MG TAB PO SCH (17:10)
[2020-11-12] MEDS: Zolpidem Tartrate 5 MG TAB PO SCH (22:02)
[2020-11-12] MEDS: Cyclobenzaprine 10 MG TAB PO SCH (22:03)
[2020-11-12] MEDS: Atorvastatin Calcium 40 MG TAB PO SCH (22:03)
[2020-11-12] MEDS: Enoxaparin Sodium 30 MG/0.3 ML SYRINGE SC SCH (22:04)
[2020-11-13] MEDS: Acetaminophen 500 MG TAB PO SCH ×4 (01:40→19:22)
[2020-11-13] MEDS: Levothyroxine Sodium 50 MCG TAB PO SCH (05:24)
[2020-11-13 05:33] LABS: Hemoglobin 10.7 g/dL (12.0-16.0); Platelet Count 282 thou/uL (130-400)
[2020-11-13] MEDS: Lantus 1000 UNITS/10 ML VIAL SC SCH (10:06)
[2020-11-13] MEDS: Polyethylene Glycol 3350 17 GM Packet PO SCH (10:07)
[2020-11-13] MEDS: Cholecalciferol 1,000 UNITS (25 MCG) TAB PO SCH ×2 (10:08→21:08)
[2020-11-13] MEDS: Triamterene/Hydrochlorothiazide 37.5 mg/25 mg Tablet PO SCH (10:09)
[2020-11-13] MEDS: Carvedilol 6.25 MG TAB PO SCH ×2 (10:09→15:52)
[2020-11-13] MEDS: metFORMIN XR 500 MG TAB PO SCH ×2 (10:10→15:52)
[2020-11-13] MEDS: Multivitamin W/ Minerals 1 TAB PO SCH (10:12)
[2020-11-13] MEDS: Gabapentin 300 MG CAP PO SCH ×3 (10:12→21:08)
[2020-11-13] MEDS: Calcium Carbonate 600 MG + Vit D TAB PO SCH (10:13)
[2020-11-13] MEDS: Furosemide 20 MG TAB PO SCH (10:13)
[2020-11-13] MEDS: Empagliflozin 10 MG TAB PO SCH (10:13)
[2020-11-13] MEDS: Amlodipine 5 MG TAB PO SCH (10:13)
[2020-11-13] MEDS: Loratadine 10 MG TAB PO SCH (10:13)
[2020-11-13] MEDS: Anastrozole 1 MG TAB PO SCH (10:14)
[2020-11-13] MEDS: Aspirin Chewable 81 MG TAB PO SCH (15:52)
[2020-11-13] MEDS: Cyclobenzaprine 10 MG TAB PO SCH (21:08)
[2020-11-13] MEDS: Zolpidem Tartrate 5 MG TAB PO SCH (21:08)
[2020-11-13] MEDS: Atorvastatin Calcium 40 MG TAB PO SCH (21:08)
[2020-11-13] MEDS: Enoxaparin Sodium 30 MG/0.3 ML SYRINGE SC SCH (21:09)
[2020-11-14] MEDS: Acetaminophen 500 MG TAB PO SCH ×5 (00:20→18:50)
[2020-11-14] MEDS: traMADol HCl 50 MG TAB PO PRN (00:41)
[2020-11-14] MEDS: Levothyroxine Sodium 50 MCG TAB PO SCH (05:06)
[2020-11-14] MEDS: metFORMIN XR 500 MG TAB PO SCH ×2 (08:57→16:43)
[2020-11-14] MEDS: Triamterene/Hydrochlorothiazide 37.5 mg/25 mg Tablet PO SCH (08:57)
[2020-11-14] MEDS: Polyethylene Glycol 3350 17 GM Packet PO SCH (08:57)
[2020-11-14] MEDS: Amlodipine 5 MG TAB PO SCH (08:58)
[2020-11-14] MEDS: Cholecalciferol 1,000 UNITS (25 MCG) TAB PO SCH ×2 (08:58→21:30)
[2020-11-14] MEDS: Calcium Carbonate 600 MG + Vit D TAB PO SCH (08:58)
[2020-11-14] MEDS: Multivitamin W/ Minerals 1 TAB PO SCH (08:58)
[2020-11-14] MEDS: Gabapentin 300 MG CAP PO SCH ×3 (09:00→21:31)
[2020-11-14] MEDS: Carvedilol 6.25 MG TAB PO SCH ×2 (09:01→16:44)
[2020-11-14] MEDS: Anastrozole 1 MG TAB PO SCH (09:02)
[2020-11-14] MEDS: Loratadine 10 MG TAB PO SCH (09:02)
[2020-11-14] MEDS: Furosemide 20 MG TAB PO SCH (09:03)
[2020-11-14] MEDS: Empagliflozin 10 MG TAB PO SCH (09:03)
[2020-11-14] MEDS: Lantus 1000 UNITS/10 ML VIAL SC SCH (09:05)
[2020-11-14] MEDS: HumaLOG 300 UNITS/3 ML VIAL SC PRN (12:02)
[2020-11-14] MEDS: Aspirin Chewable 81 MG TAB PO SCH (16:43)
[2020-11-14] MEDS: Enoxaparin Sodium 30 MG/0.3 ML SYRINGE SC SCH (21:30)
[2020-11-14] MEDS: Atorvastatin Calcium 40 MG TAB PO SCH (21:31)
[2020-11-14] MEDS: Zolpidem Tartrate 5 MG TAB PO SCH (21:31)
[2020-11-14] MEDS: Cyclobenzaprine 10 MG TAB PO SCH (21:33)
[2020-11-15] MEDS: Acetaminophen 500 MG TAB PO SCH ×4 (00:26→18:00)
[2020-11-15] MEDS: Levothyroxine Sodium 50 MCG TAB PO SCH (05:40)
[2020-11-15] MEDS: metFORMIN XR 500 MG TAB PO SCH ×2 (08:52→17:00)
[2020-11-15] MEDS: Carvedilol 6.25 MG TAB PO SCH ×2 (08:53→16:58)
[2020-11-15] MEDS: Cholecalciferol 1,000 UNITS (25 MCG) TAB PO SCH ×2 (08:54→20:42)
[2020-11-15] MEDS: Triamterene/Hydrochlorothiazide 37.5 mg/25 mg Tablet PO SCH (08:54)
[2020-11-15] MEDS: Loratadine 10 MG TAB PO SCH (08:56)
[2020-11-15] MEDS: Furosemide 20 MG TAB PO SCH (08:56)
[2020-11-15] MEDS: Calcium Carbonate 600 MG + Vit D TAB PO SCH (08:56)
[2020-11-15] MEDS: Polyethylene Glycol 3350 17 GM Packet PO SCH (08:56)
[2020-11-15] MEDS: Anastrozole 1 MG TAB PO SCH (08:56)
[2020-11-15] MEDS: Gabapentin 300 MG CAP PO SCH ×3 (08:57→20:42)
[2020-11-15] MEDS: Amlodipine 5 MG TAB PO SCH (08:57)
[2020-11-15] MEDS: Multivitamin W/ Minerals 1 TAB PO SCH (08:58)
[2020-11-15] MEDS: Empagliflozin 10 MG TAB PO SCH (08:58)
[2020-11-15] MEDS: Lantus 1000 UNITS/10 ML VIAL SC SCH (09:00)
[2020-11-15] MEDS: Aspirin Chewable 81 MG TAB PO SCH (16:58)
[2020-11-15] MEDS: HumaLOG 300 UNITS/3 ML VIAL SC PRN (17:25)
[2020-11-15] MEDS: Zolpidem Tartrate 5 MG TAB PO SCH (20:42)
[2020-11-15] MEDS: Cyclobenzaprine 10 MG TAB PO SCH (20:42)
[2020-11-15] MEDS: Atorvastatin Calcium 40 MG TAB PO SCH (20:42)
[2020-11-15] MEDS: Enoxaparin Sodium 30 MG/0.3 ML SYRINGE SC SCH (20:42)
[2020-11-16] MEDS: Acetaminophen 500 MG TAB PO SCH ×4 (00:37→18:13)
[2020-11-16 05:35] LABS: Anion Gap 21 mmol/L (10-20); BUN (Urea Nitrogen) 30 mg/dL (9.8-20.1); Calc. Creatinine Clearance 76 mL/min (70-130); Carbon Dioxide 22 mmol/L (23-31); Chloride 103 mmol/L (98-107); Glucose 145 mg/dL (80-115); Hemoglobin 11.4 g/dL (12.0-16.0); Platelet Count 255 thou/uL (130-400); Potassium 4.1 mmol/L (3.5-5.1); Sodium 142 mmol/L (136-145)
[2020-11-16] MEDS: Levothyroxine Sodium 50 MCG TAB PO SCH (06:14)
[2020-11-16] MEDS: Polyethylene Glycol 3350 17 GM Packet PO SCH (09:26)
[2020-11-16] MEDS: Carvedilol 6.25 MG TAB PO SCH ×2 (09:29→16:28)
[2020-11-16] MEDS: metFORMIN XR 500 MG TAB PO SCH ×2 (09:29→16:27)
[2020-11-16] MEDS: Cholecalciferol 1,000 UNITS (25 MCG) TAB PO SCH ×2 (09:29→22:08)
[2020-11-16] MEDS: Triamterene/Hydrochlorothiazide 37.5 mg/25 mg Tablet PO SCH (09:30)
[2020-11-16] MEDS: Lantus 1000 UNITS/10 ML VIAL SC SCH (09:31)
[2020-11-16] MEDS: Empagliflozin 10 MG TAB PO SCH (09:33)
[2020-11-16] MEDS: Multivitamin W/ Minerals 1 TAB PO SCH (09:33)
[2020-11-16] MEDS: Amlodipine 5 MG TAB PO SCH (09:33)
[2020-11-16] MEDS: Calcium Carbonate 600 MG + Vit D TAB PO SCH (09:34)
[2020-11-16] MEDS: Furosemide 20 MG TAB PO SCH (09:35)
[2020-11-16] MEDS: Anastrozole 1 MG TAB PO SCH (09:35)
[2020-11-16] MEDS: Loratadine 10 MG TAB PO SCH (09:35)
[2020-11-16] MEDS: Gabapentin 300 MG CAP PO SCH ×3 (09:39→22:07)
[2020-11-16] MEDS: Aspirin Chewable 81 MG TAB PO SCH (16:27)
[2020-11-16] MEDS: HumaLOG 300 UNITS/3 ML VIAL SC PRN (18:03)
[2020-11-16] MEDS: Enoxaparin Sodium 30 MG/0.3 ML SYRINGE SC SCH (22:05)
[2020-11-16] MEDS: Zolpidem Tartrate 5 MG TAB PO SCH (22:08)
[2020-11-16] MEDS: Atorvastatin Calcium 40 MG TAB PO SCH (22:09)
[2020-11-16] MEDS: Cyclobenzaprine 10 MG TAB PO SCH (22:09)
[2020-11-17] MEDS: traMADol HCl 50 MG TAB PO PRN (00:13)
[2020-11-17] MEDS: Acetaminophen 500 MG TAB PO SCH ×4 (00:14→18:27)
[2020-11-17] MEDS: Levothyroxine Sodium 50 MCG TAB PO SCH (06:39)
[2020-11-17] MEDS: Polyethylene Glycol 3350 17 GM Packet PO SCH (09:08)
[2020-11-17] MEDS: Carvedilol 6.25 MG TAB PO SCH ×2 (09:09→16:28)
[2020-11-17] MEDS: metFORMIN XR 500 MG TAB PO SCH ×2 (09:09→16:27)
[2020-11-17] MEDS: Calcium Carbonate 600 MG + Vit D TAB PO SCH (09:10)
[2020-11-17] MEDS: Cholecalciferol 1,000 UNITS (25 MCG) TAB PO SCH ×2 (09:10→21:55)
[2020-11-17] MEDS: Triamterene/Hydrochlorothiazide 37.5 mg/25 mg Tablet PO SCH (09:10)
[2020-11-17] MEDS: Gabapentin 300 MG CAP PO SCH ×3 (09:11→21:56)
[2020-11-17] MEDS: Empagliflozin 10 MG TAB PO SCH (09:12)
[2020-11-17] MEDS: Multivitamin W/ Minerals 1 TAB PO SCH (09:12)
[2020-11-17] MEDS: Loratadine 10 MG TAB PO SCH (09:12)
[2020-11-17] MEDS: Anastrozole 1 MG TAB PO SCH (09:12)
[2020-11-17] MEDS: Furosemide 20 MG TAB PO SCH (09:12)
[2020-11-17] MEDS: Lantus 1000 UNITS/10 ML VIAL SC SCH (09:17)
[2020-11-17] MEDS: Amlodipine 5 MG TAB PO SCH (10:50)
[2020-11-17] MEDS: Aspirin Chewable 81 MG TAB PO SCH (16:27)
[2020-11-17] MEDS: HumaLOG 300 UNITS/3 ML VIAL SC PRN (16:42)
[2020-11-17] MEDS: Cyclobenzaprine 10 MG TAB PO SCH (21:55)
[2020-11-17] MEDS: Enoxaparin Sodium 30 MG/0.3 ML SYRINGE SC SCH (21:56)
[2020-11-17] MEDS: Atorvastatin Calcium 40 MG TAB PO SCH (21:56)
[2020-11-17] MEDS: Zolpidem Tartrate 5 MG TAB PO SCH (21:56)
[2020-11-18] MEDS: Acetaminophen 500 MG TAB PO SCH ×4 (01:08→16:55)
[2020-11-18] MEDS: Levothyroxine Sodium 50 MCG TAB PO SCH (05:27)
[2020-11-18] MEDS: Polyethylene Glycol 3350 17 GM Packet PO SCH (09:09)
[2020-11-18] MEDS: Empagliflozin 10 MG TAB PO SCH (09:10)
[2020-11-18] MEDS: Gabapentin 300 MG CAP PO SCH ×3 (09:10→21:31)
[2020-11-18] MEDS: Furosemide 20 MG TAB PO SCH (09:10)
[2020-11-18] MEDS: Anastrozole 1 MG TAB PO SCH (09:11)
[2020-11-18] MEDS: Amlodipine 5 MG TAB PO SCH (09:11)
[2020-11-18] MEDS: Multivitamin W/ Minerals 1 TAB PO SCH (09:11)
[2020-11-18] MEDS: metFORMIN XR 500 MG TAB PO SCH ×2 (09:12→16:54)
[2020-11-18] MEDS: Triamterene/Hydrochlorothiazide 37.5 mg/25 mg Tablet PO SCH (09:12)
[2020-11-18] MEDS: Loratadine 10 MG TAB PO SCH (09:12)
[2020-11-18] MEDS: Cholecalciferol 1,000 UNITS (25 MCG) TAB PO SCH ×2 (09:13→21:31)
[2020-11-18] MEDS: Carvedilol 6.25 MG TAB PO SCH ×2 (09:13→16:55)
[2020-11-18] MEDS: Lantus 1000 UNITS/10 ML VIAL SC SCH (09:20)
[2020-11-18] MEDS: Calcium Carbonate 600 MG + Vit D TAB PO SCH (09:20)
[2020-11-18] MEDS: Aspirin Chewable 81 MG TAB PO SCH (16:54)
[2020-11-18] MEDS: Cyclobenzaprine 10 MG TAB PO SCH (21:31)
[2020-11-18] MEDS: Zolpidem Tartrate 5 MG TAB PO SCH (21:31)
[2020-11-18] MEDS: Atorvastatin Calcium 40 MG TAB PO SCH (21:31)
[2020-11-18] MEDS: Enoxaparin Sodium 30 MG/0.3 ML SYRINGE SC SCH (21:32)
[2020-11-19] MEDS: Acetaminophen 500 MG TAB PO SCH ×4 (04:11→18:34)
[2020-11-19 04:33] LABS: Hemoglobin 10.6 g/dL (12.0-16.0); Platelet Count 282 thou/uL (130-400)
[2020-11-19] MEDS: Levothyroxine Sodium 50 MCG TAB PO SCH (05:31)
[2020-11-19] MEDS: metFORMIN XR 500 MG TAB PO SCH ×2 (09:39→16:09)
[2020-11-19] MEDS: Cholecalciferol 1,000 UNITS (25 MCG) TAB PO SCH ×2 (09:39→21:20)
[2020-11-19] MEDS: Amlodipine 5 MG TAB PO SCH (09:40)
[2020-11-19] MEDS: Polyethylene Glycol 3350 17 GM Packet PO SCH (09:40)
[2020-11-19] MEDS: Carvedilol 6.25 MG TAB PO SCH ×2 (09:40→16:09)
[2020-11-19] MEDS: Multivitamin W/ Minerals 1 TAB PO SCH (09:40)
[2020-11-19] MEDS: Calcium Carbonate 600 MG + Vit D TAB PO SCH (09:41)
[2020-11-19] MEDS: Gabapentin 300 MG CAP PO SCH ×3 (09:41→21:20)
[2020-11-19] MEDS: Loratadine 10 MG TAB PO SCH (09:41)
[2020-11-19] MEDS: Anastrozole 1 MG TAB PO SCH (09:41)
[2020-11-19] MEDS: Furosemide 20 MG TAB PO SCH (09:42)
[2020-11-19] MEDS: Empagliflozin 10 MG TAB PO SCH (09:42)
[2020-11-19] MEDS: Triamterene/Hydrochlorothiazide 37.5 mg/25 mg Tablet PO SCH (09:42)
[2020-11-19] MEDS: Lantus 1000 UNITS/10 ML VIAL SC SCH (09:45)
[2020-11-19] MEDS: Aspirin Chewable 81 MG TAB PO SCH (16:09)
[2020-11-19] MEDS: Atorvastatin Calcium 40 MG TAB PO SCH (21:20)
[2020-11-19] MEDS: Zolpidem Tartrate 5 MG TAB PO SCH (21:20)
[2020-11-19] MEDS: Enoxaparin Sodium 30 MG/0.3 ML SYRINGE SC SCH (21:21)
[2020-11-19] MEDS: Cyclobenzaprine 10 MG TAB PO SCH (21:22)
[2020-11-20] MEDS: Acetaminophen 500 MG TAB PO SCH ×4 (01:17→18:26)
[2020-11-20] MEDS: Levothyroxine Sodium 50 MCG TAB PO SCH (05:21)
[2020-11-20] MEDS: Triamterene/Hydrochlorothiazide 37.5 mg/25 mg Tablet PO SCH (09:29)
[2020-11-20] MEDS: Polyethylene Glycol 3350 17 GM Packet PO SCH (09:29)
[2020-11-20] MEDS: Lantus 1000 UNITS/10 ML VIAL SC SCH (09:29)
[2020-11-20] MEDS: Carvedilol 6.25 MG TAB PO SCH ×2 (09:29→16:42)
[2020-11-20] MEDS: Cholecalciferol 1,000 UNITS (25 MCG) TAB PO SCH ×2 (09:30→21:01)
[2020-11-20] MEDS: metFORMIN XR 500 MG TAB PO SCH ×2 (09:30→16:43)
[2020-11-20] MEDS: Multivitamin W/ Minerals 1 TAB PO SCH (09:31)
[2020-11-20] MEDS: Empagliflozin 10 MG TAB PO SCH (09:31)
[2020-11-20] MEDS: Calcium Carbonate 600 MG + Vit D TAB PO SCH (09:31)
[2020-11-20] MEDS: Anastrozole 1 MG TAB PO SCH (09:31)
[2020-11-20] MEDS: Loratadine 10 MG TAB PO SCH (09:31)
[2020-11-20] MEDS: Furosemide 20 MG TAB PO SCH (09:32)
[2020-11-20] MEDS: Amlodipine 5 MG TAB PO SCH (09:32)
[2020-11-20] MEDS: Gabapentin 300 MG CAP PO SCH ×3 (09:33→21:01)
[2020-11-20] MEDS: Aspirin Chewable 81 MG TAB PO SCH (16:43)
[2020-11-20] MEDS: HumaLOG 300 UNITS/3 ML VIAL SC PRN (18:25)
[2020-11-20] MEDS: Cyclobenzaprine 10 MG TAB PO SCH (21:01)
[2020-11-20] MEDS: Atorvastatin Calcium 40 MG TAB PO SCH (21:01)
[2020-11-20] MEDS: Zolpidem Tartrate 5 MG TAB PO SCH (21:02)
[2020-11-20] MEDS: Enoxaparin Sodium 30 MG/0.3 ML SYRINGE SC SCH (21:02)
[2020-11-21] MEDS: Levothyroxine Sodium 50 MCG TAB PO SCH (06:05)
[2020-11-21] MEDS: Acetaminophen 500 MG TAB PO SCH ×4 (06:06→17:13)
[2020-11-21] MEDS: Triamterene/Hydrochlorothiazide 37.5 mg/25 mg Tablet PO SCH (10:26)
[2020-11-21] MEDS: Empagliflozin 10 MG TAB PO SCH (10:26)
[2020-11-21] MEDS: Multivitamin W/ Minerals 1 TAB PO SCH (10:27)
[2020-11-21] MEDS: metFORMIN XR 500 MG TAB PO SCH ×2 (10:27→17:12)
[2020-11-21] MEDS: Amlodipine 5 MG TAB PO SCH (10:27)
[2020-11-21] MEDS: Gabapentin 300 MG CAP PO SCH ×3 (10:28→21:29)
[2020-11-21] MEDS: Carvedilol 6.25 MG TAB PO SCH ×2 (10:28→17:12)
[2020-11-21] MEDS: Loratadine 10 MG TAB PO SCH (10:29)
[2020-11-21] MEDS: Cholecalciferol 1,000 UNITS (25 MCG) TAB PO SCH ×2 (10:29→21:26)
[2020-11-21] MEDS: Polyethylene Glycol 3350 17 GM Packet PO SCH (10:30)
[2020-11-21] MEDS: Furosemide 20 MG TAB PO SCH (10:30)
[2020-11-21] MEDS: Anastrozole 1 MG TAB PO SCH (10:30)
[2020-11-21] MEDS: Calcium Carbonate 600 MG + Vit D TAB PO SCH (10:30)
[2020-11-21] MEDS: Lantus 1000 UNITS/10 ML VIAL SC SCH (10:31)
[2020-11-21] MEDS: HumaLOG 300 UNITS/3 ML VIAL SC PRN (10:43)
[2020-11-21] MEDS: traMADol HCl 50 MG TAB PO PRN (12:12)
[2020-11-21] MEDS: Aspirin Chewable 81 MG TAB PO SCH (17:12)
[2020-11-21] MEDS: Atorvastatin Calcium 40 MG TAB PO SCH (21:26)
[2020-11-21] MEDS: Zolpidem Tartrate 5 MG TAB PO SCH (21:26)
[2020-11-21] MEDS: Cyclobenzaprine 10 MG TAB PO SCH (21:26)
[2020-11-21] MEDS: Enoxaparin Sodium 30 MG/0.3 ML SYRINGE SC SCH (21:28)
[2020-11-22] MEDS: Acetaminophen 500 MG TAB PO SCH ×4 (06:50→17:19)
[2020-11-22] MEDS: Levothyroxine Sodium 50 MCG TAB PO SCH (06:50)
[2020-11-22] MEDS: Polyethylene Glycol 3350 17 GM Packet PO SCH (08:44)
[2020-11-22] MEDS: metFORMIN XR 500 MG TAB PO SCH ×2 (08:45→17:17)
[2020-11-22] MEDS: Multivitamin W/ Minerals 1 TAB PO SCH (08:45)
[2020-11-22] MEDS: Carvedilol 6.25 MG TAB PO SCH ×2 (08:45→17:18)
[2020-11-22] MEDS: Triamterene/Hydrochlorothiazide 37.5 mg/25 mg Tablet PO SCH (08:46)
[2020-11-22] MEDS: Cholecalciferol 1,000 UNITS (25 MCG) TAB PO SCH ×2 (08:46→21:46)
[2020-11-22] MEDS: Calcium Carbonate 600 MG + Vit D TAB PO SCH (08:46)
[2020-11-22] MEDS: Empagliflozin 10 MG TAB PO SCH (08:46)
[2020-11-22] MEDS: Furosemide 20 MG TAB PO SCH (08:47)
[2020-11-22] MEDS: Anastrozole 1 MG TAB PO SCH (08:47)
[2020-11-22] MEDS: Amlodipine 5 MG TAB PO SCH (08:47)
[2020-11-22] MEDS: Loratadine 10 MG TAB PO SCH (08:48)
[2020-11-22] MEDS: Gabapentin 300 MG CAP PO SCH ×3 (08:48→21:45)
[2020-11-22] MEDS: Lantus 1000 UNITS/10 ML VIAL SC SCH (08:59)
[2020-11-22 09:01] LABS: Hemoglobin 11.5 g/dL (12.0-16.0); Platelet Count 353 thou/uL (130-400)
[2020-11-22] MEDS: traMADol HCl 50 MG TAB PO PRN ×2 (13:14→21:51)
[2020-11-22] MEDS: Aspirin Chewable 81 MG TAB PO SCH (17:17)
[2020-11-22] MEDS: HumaLOG 300 UNITS/3 ML VIAL SC PRN (17:20)
[2020-11-22] MEDS: Cyclobenzaprine 10 MG TAB PO SCH (21:44)
[2020-11-22] MEDS: Atorvastatin Calcium 40 MG TAB PO SCH (21:46)
[2020-11-22] MEDS: Enoxaparin Sodium 30 MG/0.3 ML SYRINGE SC SCH (21:46)
[2020-11-22] MEDS: Zolpidem Tartrate 5 MG TAB PO SCH (21:46)
[2020-11-22] MEDS: Naproxen 500 MG TAB PO PRN (21:50)
[2020-11-23] MEDS: Acetaminophen 500 MG TAB PO SCH ×5 (06:53→23:26)
[2020-11-23] MEDS: Levothyroxine Sodium 50 MCG TAB PO SCH (06:54)
[2020-11-23] MEDS: Cholecalciferol 1,000 UNITS (25 MCG) TAB PO SCH ×2 (08:40→20:29)
[2020-11-23] MEDS: Loratadine 10 MG TAB PO SCH (08:42)
[2020-11-23] MEDS: Anastrozole 1 MG TAB PO SCH (08:42)
[2020-11-23] MEDS: Carvedilol 6.25 MG TAB PO SCH ×2 (08:42→16:43)
[2020-11-23] MEDS: Empagliflozin 10 MG TAB PO SCH (08:42)
[2020-11-23] MEDS: Triamterene/Hydrochlorothiazide 37.5 mg/25 mg Tablet PO SCH (08:43)
[2020-11-23] MEDS: Multivitamin W/ Minerals 1 TAB PO SCH (08:43)
[2020-11-23] MEDS: Furosemide 20 MG TAB PO SCH (08:43)
[2020-11-23] MEDS: metFORMIN XR 500 MG TAB PO SCH ×2 (08:44→16:41)
[2020-11-23] MEDS: Calcium Carbonate 600 MG + Vit D TAB PO SCH (08:44)
[2020-11-23] MEDS: Polyethylene Glycol 3350 17 GM Packet PO SCH (08:45)
[2020-11-23] MEDS: Amlodipine 5 MG TAB PO SCH (08:45)
[2020-11-23] MEDS: Lantus 1000 UNITS/10 ML VIAL SC SCH (08:45)
[2020-11-23] MEDS: Gabapentin 300 MG CAP PO SCH ×3 (08:46→20:30)
[2020-11-23] MEDS: traMADol HCl 50 MG TAB PO PRN (12:55)
[2020-11-23] MEDS: HumaLOG 300 UNITS/3 ML VIAL SC PRN (16:41)
[2020-11-23] MEDS: Aspirin Chewable 81 MG TAB PO SCH (16:43)
[2020-11-23] MEDS: Enoxaparin Sodium 30 MG/0.3 ML SYRINGE SC SCH (20:26)
[2020-11-23] MEDS: Cyclobenzaprine 10 MG TAB PO SCH (20:29)
[2020-11-23] MEDS: Atorvastatin Calcium 40 MG TAB PO SCH (20:30)
[2020-11-23] MEDS: Zolpidem Tartrate 5 MG TAB PO SCH (20:31)
[2020-11-24] MEDS: Levothyroxine Sodium 50 MCG TAB PO SCH (05:52)
[2020-11-24] MEDS: Acetaminophen 500 MG TAB PO SCH ×3 (05:53→17:04)
[2020-11-24] MEDS: Polyethylene Glycol 3350 17 GM Packet PO SCH (08:02)
[2020-11-24] MEDS: Amlodipine 5 MG TAB PO SCH (08:02)
[2020-11-24] MEDS: metFORMIN XR 500 MG TAB PO SCH ×2 (08:04→17:05)
[2020-11-24] MEDS: Cholecalciferol 1,000 UNITS (25 MCG) TAB PO SCH ×2 (08:04→20:56)
[2020-11-24] MEDS: Triamterene/Hydrochlorothiazide 37.5 mg/25 mg Tablet PO SCH (08:04)
[2020-11-24] MEDS: Loratadine 10 MG TAB PO SCH (08:05)
[2020-11-24] MEDS: Carvedilol 6.25 MG TAB PO SCH ×2 (08:05→17:04)
[2020-11-24] MEDS: Calcium Carbonate 600 MG + Vit D TAB PO SCH (08:05)
[2020-11-24] MEDS: Empagliflozin 10 MG TAB PO SCH (08:06)
[2020-11-24] MEDS: Gabapentin 300 MG CAP PO SCH ×3 (08:06→20:57)
[2020-11-24] MEDS: Furosemide 20 MG TAB PO SCH (08:06)
[2020-11-24] MEDS: Anastrozole 1 MG TAB PO SCH (08:06)
[2020-11-24] MEDS: Multivitamin W/ Minerals 1 TAB PO SCH (08:07)
[2020-11-24] MEDS: Lantus 1000 UNITS/10 ML VIAL SC SCH (08:07)
[2020-11-24] MEDS: Aspirin Chewable 81 MG TAB PO SCH (17:04)
[2020-11-24] MEDS ORDERED: Boostrix 0.5 ML (Tdap) VIAL ONE (17:44)
[2020-11-24] MEDS: Zolpidem Tartrate 5 MG TAB PO SCH (20:56)
[2020-11-24] MEDS: Cyclobenzaprine 10 MG TAB PO SCH (20:57)
[2020-11-24] MEDS: Enoxaparin Sodium 30 MG/0.3 ML SYRINGE SC SCH (20:57)
[2020-11-24] MEDS: Atorvastatin Calcium 40 MG TAB PO SCH (20:57)
[2020-11-25] MEDS: Acetaminophen 500 MG TAB PO SCH ×4 (00:26→17:37)
[2020-11-25] MEDS: traMADol HCl 50 MG TAB PO PRN ×2 (01:24→21:22)
[2020-11-25] MEDS: Levothyroxine Sodium 50 MCG TAB PO SCH (05:53)
[2020-11-25] MEDS: Gabapentin 300 MG CAP PO SCH ×3 (08:25→21:24)
[2020-11-25] MEDS: Polyethylene Glycol 3350 17 GM Packet PO SCH (08:25)
[2020-11-25] MEDS: Furosemide 20 MG TAB PO SCH (08:26)
[2020-11-25] MEDS: Anastrozole 1 MG TAB PO SCH (08:26)
[2020-11-25] MEDS: Empagliflozin 10 MG TAB PO SCH (08:26)
[2020-11-25] MEDS: Calcium Carbonate 600 MG + Vit D TAB PO SCH (08:27)
[2020-11-25] MEDS: metFORMIN XR 500 MG TAB PO SCH ×2 (08:27→17:37)
[2020-11-25] MEDS: Amlodipine 5 MG TAB PO SCH (08:27)
[2020-11-25] MEDS: Multivitamin W/ Minerals 1 TAB PO SCH (08:27)
[2020-11-25] MEDS: Carvedilol 6.25 MG TAB PO SCH ×2 (08:28→17:42)
[2020-11-25] MEDS: Loratadine 10 MG TAB PO SCH (08:28)
[2020-11-25] MEDS: Cholecalciferol 1,000 UNITS (25 MCG) TAB PO SCH ×2 (08:28→21:24)
[2020-11-25] MEDS: Triamterene/Hydrochlorothiazide 37.5 mg/25 mg Tablet PO SCH (08:28)
[2020-11-25] MEDS: Lantus 1000 UNITS/10 ML VIAL SC SCH (08:29)
[2020-11-25 15:30] LABS: Hemoglobin 11.7 g/dL (12.0-16.0); Platelet Count 381 thou/uL (130-400)
[2020-11-25] MEDS: Aspirin Chewable 81 MG TAB PO SCH (17:36)
[2020-11-25] MEDS: HumaLOG 300 UNITS/3 ML VIAL SC PRN (17:43)
[2020-11-25] MEDS: Enoxaparin Sodium 30 MG/0.3 ML SYRINGE SC SCH (21:21)
[2020-11-25] MEDS: Zolpidem Tartrate 5 MG TAB PO SCH (21:22)
[2020-11-25] MEDS: Cyclobenzaprine 10 MG TAB PO SCH (21:23)
[2020-11-25] MEDS: Naproxen 500 MG TAB PO PRN (21:23)
[2020-11-25] MEDS: Atorvastatin Calcium 40 MG TAB PO SCH (21:23)
[2020-11-26] MEDS: Acetaminophen 500 MG TAB PO SCH ×4 (00:16→17:04)
[2020-11-26] MEDS: Levothyroxine Sodium 50 MCG TAB PO SCH (06:05)
[2020-11-26] MEDS: Polyethylene Glycol 3350 17 GM Packet PO SCH (08:13)
[2020-11-26] MEDS: Calcium Carbonate 600 MG + Vit D TAB PO SCH (08:14)
[2020-11-26] MEDS: Anastrozole 1 MG TAB PO SCH (08:15)
[2020-11-26] MEDS: Triamterene/Hydrochlorothiazide 37.5 mg/25 mg Tablet PO SCH (08:15)
[2020-11-26] MEDS: metFORMIN XR 500 MG TAB PO SCH ×2 (08:15→17:06)
[2020-11-26] MEDS: Cholecalciferol 1,000 UNITS (25 MCG) TAB PO SCH ×2 (08:16→21:55)
[2020-11-26] MEDS: Multivitamin W/ Minerals 1 TAB PO SCH (08:16)
[2020-11-26] MEDS: Loratadine 10 MG TAB PO SCH (08:16)
[2020-11-26] MEDS: Furosemide 20 MG TAB PO SCH (08:17)
[2020-11-26] MEDS: Gabapentin 300 MG CAP PO SCH ×3 (08:17→21:56)
[2020-11-26] MEDS: Carvedilol 6.25 MG TAB PO SCH ×2 (08:17→17:06)
[2020-11-26] MEDS: Empagliflozin 10 MG TAB PO SCH (08:19)
[2020-11-26] MEDS: Amlodipine 5 MG TAB PO SCH (08:19)
[2020-11-26] MEDS: Lantus 1000 UNITS/10 ML VIAL SC SCH (08:19)
[2020-11-26] MEDS: traMADol HCl 50 MG TAB PO PRN ×2 (12:37→21:54)
[2020-11-26] MEDS: Aspirin Chewable 81 MG TAB PO SCH (17:04)
[2020-11-26] MEDS: HumaLOG 300 UNITS/3 ML VIAL SC PRN (17:07)
[2020-11-26] MEDS: Enoxaparin Sodium 30 MG/0.3 ML SYRINGE SC SCH (21:53)
[2020-11-26] MEDS: Naproxen 500 MG TAB PO PRN (21:55)
[2020-11-26] MEDS: Cyclobenzaprine 10 MG TAB PO SCH (21:55)
[2020-11-26] MEDS: Atorvastatin Calcium 40 MG TAB PO SCH (21:56)
[2020-11-26] MEDS: Zolpidem Tartrate 5 MG TAB PO SCH (21:56)
[2020-11-27] MEDS: Acetaminophen 500 MG TAB PO SCH ×4 (02:03→17:11)
[2020-11-27] MEDS: Levothyroxine Sodium 50 MCG TAB PO SCH (05:52)
[2020-11-27] MEDS: Carvedilol 6.25 MG TAB PO SCH ×2 (08:57→17:07)
[2020-11-27] MEDS: Polyethylene Glycol 3350 17 GM Packet PO SCH (08:57)
[2020-11-27] MEDS: Triamterene/Hydrochlorothiazide 37.5 mg/25 mg Tablet PO SCH (08:58)
[2020-11-27] MEDS: metFORMIN XR 500 MG TAB PO SCH ×2 (08:59→17:08)
[2020-11-27] MEDS: Cholecalciferol 1,000 UNITS (25 MCG) TAB PO SCH ×2 (08:59→20:27)
[2020-11-27] MEDS: Gabapentin 300 MG CAP PO SCH ×3 (09:01→20:28)
[2020-11-27] MEDS: Multivitamin W/ Minerals 1 TAB PO SCH (09:01)
[2020-11-27] MEDS: Furosemide 20 MG TAB PO SCH (09:02)
[2020-11-27] MEDS: Calcium Carbonate 600 MG + Vit D TAB PO SCH (09:02)
[2020-11-27] MEDS: Empagliflozin 10 MG TAB PO SCH (09:03)
[2020-11-27] MEDS: Loratadine 10 MG TAB PO SCH (09:03)
[2020-11-27] MEDS: Amlodipine 5 MG TAB PO SCH (09:03)
[2020-11-27] MEDS: Anastrozole 1 MG TAB PO SCH (09:04)
[2020-11-27] MEDS: Lantus 1000 UNITS/10 ML VIAL SC SCH (09:04)
[2020-11-27] MEDS: Naproxen 500 MG TAB PO PRN (14:54)
[2020-11-27] MEDS: HumaLOG 300 UNITS/3 ML VIAL SC PRN (17:08)
[2020-11-27] MEDS: Aspirin Chewable 81 MG TAB PO SCH (17:08)
[2020-11-27] MEDS: traMADol HCl 50 MG TAB PO PRN (17:15)
[2020-11-27] MEDS: Atorvastatin Calcium 40 MG TAB PO SCH (20:27)
[2020-11-27] MEDS: Cyclobenzaprine 10 MG TAB PO SCH (20:27)
[2020-11-27] MEDS: Zolpidem Tartrate 5 MG TAB PO SCH (20:27)
[2020-11-27] MEDS: Enoxaparin Sodium 30 MG/0.3 ML SYRINGE SC SCH (20:27)
[2020-11-28] MEDS: Acetaminophen 500 MG TAB PO SCH ×4 (02:28→18:00)
[2020-11-28] MEDS: Levothyroxine Sodium 50 MCG TAB PO SCH (06:11)
[2020-11-28 09:07] LABS: Platelet Count 344 thou/uL (130-400)
[2020-11-28] MEDS: Polyethylene Glycol 3350 17 GM Packet PO SCH (09:14)
[2020-11-28] MEDS: Lantus 1000 UNITS/10 ML VIAL SC SCH (09:15)
[2020-11-28] MEDS: Carvedilol 6.25 MG TAB PO SCH ×2 (09:17→17:15)
[2020-11-28] MEDS: Cholecalciferol 1,000 UNITS (25 MCG) TAB PO SCH ×2 (09:18→20:08)
[2020-11-28] MEDS: metFORMIN XR 500 MG TAB PO SCH ×2 (09:18→17:15)
[2020-11-28] MEDS: Triamterene/Hydrochlorothiazide 37.5 mg/25 mg Tablet PO SCH (09:18)
[2020-11-28] MEDS: Calcium Carbonate 600 MG + Vit D TAB PO SCH (09:20)
[2020-11-28] MEDS: Anastrozole 1 MG TAB PO SCH (09:20)
[2020-11-28] MEDS: Loratadine 10 MG TAB PO SCH (09:20)
[2020-11-28] MEDS: Empagliflozin 10 MG TAB PO SCH (09:20)
[2020-11-28] MEDS: Furosemide 20 MG TAB PO SCH (09:20)
[2020-11-28] MEDS: Amlodipine 5 MG TAB PO SCH (09:21)
[2020-11-28] MEDS: Gabapentin 300 MG CAP PO SCH ×3 (09:21→20:08)
[2020-11-28] MEDS: Multivitamin W/ Minerals 1 TAB PO SCH (09:23)
[2020-11-28] MEDS: traMADol HCl 50 MG TAB PO PRN ×2 (12:23→18:01)
[2020-11-28] MEDS: Aspirin Chewable 81 MG TAB PO SCH (17:15)
[2020-11-28] MEDS: HumaLOG 300 UNITS/3 ML VIAL SC PRN (18:03)
[2020-11-28] MEDS: Cyclobenzaprine 10 MG TAB PO SCH (20:07)
[2020-11-28] MEDS: Zolpidem Tartrate 5 MG TAB PO SCH (20:08)
[2020-11-28] MEDS: Atorvastatin Calcium 40 MG TAB PO SCH (20:08)
[2020-11-28] MEDS: Enoxaparin Sodium 30 MG/0.3 ML SYRINGE SC SCH (20:11)
[2020-11-29] MEDS: Acetaminophen 500 MG TAB PO SCH ×4 (00:40→18:40)
[2020-11-29] MEDS: Levothyroxine Sodium 50 MCG TAB PO SCH (06:04)
[2020-11-29] MEDS: Polyethylene Glycol 3350 17 GM Packet PO SCH (09:34)
[2020-11-29] MEDS: Lantus 1000 UNITS/10 ML VIAL SC SCH (09:35)
[2020-11-29] MEDS: Carvedilol 6.25 MG TAB PO SCH ×2 (09:37→17:06)
[2020-11-29] MEDS: Cholecalciferol 1,000 UNITS (25 MCG) TAB PO SCH ×2 (09:38→20:30)
[2020-11-29] MEDS: metFORMIN XR 500 MG TAB PO SCH ×2 (09:38→17:06)
[2020-11-29] MEDS: Triamterene/Hydrochlorothiazide 37.5 mg/25 mg Tablet PO SCH (09:38)
[2020-11-29] MEDS: Furosemide 20 MG TAB PO SCH (09:40)
[2020-11-29] MEDS: Loratadine 10 MG TAB PO SCH (09:40)
[2020-11-29] MEDS: Amlodipine 5 MG TAB PO SCH (09:40)
[2020-11-29] MEDS: Anastrozole 1 MG TAB PO SCH (09:40)
[2020-11-29] MEDS: Gabapentin 300 MG CAP PO SCH ×3 (09:41→20:30)
[2020-11-29] MEDS: Multivitamin W/ Minerals 1 TAB PO SCH (09:41)
[2020-11-29] MEDS: Empagliflozin 10 MG TAB PO SCH (09:42)
[2020-11-29] MEDS: Calcium Carbonate 600 MG + Vit D TAB PO SCH (09:42)
[2020-11-29] MEDS: traMADol HCl 50 MG TAB PO PRN ×2 (12:24→20:33)
[2020-11-29] MEDS: Aspirin Chewable 81 MG TAB PO SCH (17:06)
[2020-11-29] MEDS: Zolpidem Tartrate 5 MG TAB PO SCH (20:29)
[2020-11-29] MEDS: Atorvastatin Calcium 40 MG TAB PO SCH (20:30)
[2020-11-29] MEDS: Enoxaparin Sodium 30 MG/0.3 ML SYRINGE SC SCH (20:31)
[2020-11-29] MEDS: Cyclobenzaprine 10 MG TAB PO SCH (20:40)
[2020-11-30] MEDS: Acetaminophen 500 MG TAB PO SCH ×4 (00:34→18:14)
[2020-11-30] MEDS: Levothyroxine Sodium 50 MCG TAB PO SCH (06:06)
[2020-11-30] MEDS: Cholecalciferol 1,000 UNITS (25 MCG) TAB PO SCH ×2 (09:54→21:12)
[2020-11-30] MEDS: Triamterene/Hydrochlorothiazide 37.5 mg/25 mg Tablet PO SCH (09:55)
[2020-11-30] MEDS: Carvedilol 6.25 MG TAB PO SCH ×2 (09:55→17:01)
[2020-11-30] MEDS: metFORMIN XR 500 MG TAB PO SCH ×2 (09:55→17:00)
[2020-11-30] MEDS: Lantus 1000 UNITS/10 ML VIAL SC SCH (09:58)
[2020-11-30] MEDS: Polyethylene Glycol 3350 17 GM Packet PO SCH (10:00)
[2020-11-30] MEDS: Calcium Carbonate 600 MG + Vit D TAB PO SCH (10:00)
[2020-11-30] MEDS: Anastrozole 1 MG TAB PO SCH (10:01)
[2020-11-30] MEDS: Loratadine 10 MG TAB PO SCH (10:01)
[2020-11-30] MEDS: Amlodipine 5 MG TAB PO SCH (10:01)
[2020-11-30] MEDS: Gabapentin 300 MG CAP PO SCH ×3 (10:02→21:12)
[2020-11-30] MEDS: Furosemide 20 MG TAB PO SCH (10:03)
[2020-11-30] MEDS: Empagliflozin 10 MG TAB PO SCH (10:03)
[2020-11-30] MEDS: Multivitamin W/ Minerals 1 TAB PO SCH (10:03)
[2020-11-30] MEDS: Aspirin Chewable 81 MG TAB PO SCH (17:00)
[2020-11-30] MEDS: Zolpidem Tartrate 5 MG TAB PO SCH (21:12)
[2020-11-30] MEDS: Cyclobenzaprine 10 MG TAB PO SCH (21:12)
[2020-11-30] MEDS: Atorvastatin Calcium 40 MG TAB PO SCH (21:12)
[2020-11-30] MEDS: Enoxaparin Sodium 30 MG/0.3 ML SYRINGE SC SCH (21:13)
[2020-11-30] MEDS: Naproxen 500 MG TAB PO PRN (21:16)
[2020-11-30] MEDS: traMADol HCl 50 MG TAB PO PRN (21:17)
[2020-12-01] MEDS: Acetaminophen 500 MG TAB PO SCH ×4 (03:14→16:47)
[2020-12-01] MEDS: traMADol HCl 50 MG TAB PO PRN ×3 (04:11→21:49)
[2020-12-01] MEDS: Levothyroxine Sodium 50 MCG TAB PO SCH (04:16)
[2020-12-01 09:29] LABS: Hemoglobin 11.3 g/dL (12.0-16.0); Platelet Count 237 thou/uL (130-400)
[2020-12-01] MEDS: Calcium Carbonate 600 MG + Vit D TAB PO SCH (10:32)
[2020-12-01] MEDS: Carvedilol 6.25 MG TAB PO SCH ×2 (10:32→16:47)
[2020-12-01] MEDS: Amlodipine 5 MG TAB PO SCH (10:32)
[2020-12-01] MEDS: Anastrozole 1 MG TAB PO SCH (10:32)
[2020-12-01] MEDS: metFORMIN XR 500 MG TAB PO SCH ×2 (10:32→16:47)
[2020-12-01] MEDS: Cholecalciferol 1,000 UNITS (25 MCG) TAB PO SCH ×2 (10:33→21:45)
[2020-12-01] MEDS: Loratadine 10 MG TAB PO SCH (10:33)
[2020-12-01] MEDS: Furosemide 20 MG TAB PO SCH (10:33)
[2020-12-01] MEDS: Multivitamin W/ Minerals 1 TAB PO SCH (10:33)
[2020-12-01] MEDS: Empagliflozin 10 MG TAB PO SCH (10:33)
[2020-12-01] MEDS: Triamterene/Hydrochlorothiazide 37.5 mg/25 mg Tablet PO SCH (10:33)
[2020-12-01] MEDS: Gabapentin 300 MG CAP PO SCH ×3 (10:34→21:45)
[2020-12-01] MEDS: Polyethylene Glycol 3350 17 GM Packet PO SCH (10:34)
[2020-12-01] MEDS: Lantus 1000 UNITS/10 ML VIAL SC SCH (10:35)
[2020-12-01] MEDS: Aspirin Chewable 81 MG TAB PO SCH (16:47)
[2020-12-01] MEDS: Cyclobenzaprine 10 MG TAB PO SCH (21:44)
[2020-12-01] MEDS: Zolpidem Tartrate 5 MG TAB PO SCH (21:44)
[2020-12-01] MEDS: Atorvastatin Calcium 40 MG TAB PO SCH (21:44)
[2020-12-01] MEDS: Enoxaparin Sodium 30 MG/0.3 ML SYRINGE SC SCH (21:45)
[2020-12-01] MEDS: Naproxen 500 MG TAB PO PRN (21:51)
[2020-12-02] MEDS: Acetaminophen 500 MG TAB PO SCH ×4 (01:13→18:48)
[2020-12-02] MEDS: Levothyroxine Sodium 50 MCG TAB PO SCH (06:10)
[2020-12-02] MEDS: Gabapentin 300 MG CAP PO SCH ×3 (08:19→20:06)
[2020-12-02] MEDS: Polyethylene Glycol 3350 17 GM Packet PO SCH (08:19)
[2020-12-02] MEDS: Calcium Carbonate 600 MG + Vit D TAB PO SCH (08:19)
[2020-12-02] MEDS: Multivitamin W/ Minerals 1 TAB PO SCH (08:19)
[2020-12-02] MEDS: Amlodipine 5 MG TAB PO SCH (08:20)
[2020-12-02] MEDS: Furosemide 20 MG TAB PO SCH (08:20)
[2020-12-02] MEDS: Loratadine 10 MG TAB PO SCH (08:21)
[2020-12-02] MEDS: Anastrozole 1 MG TAB PO SCH (08:21)
[2020-12-02] MEDS: Carvedilol 6.25 MG TAB PO SCH ×2 (08:21→16:52)
[2020-12-02] MEDS: Empagliflozin 10 MG TAB PO SCH (08:21)
[2020-12-02] MEDS: Cholecalciferol 1,000 UNITS (25 MCG) TAB PO SCH ×2 (08:22→20:06)
[2020-12-02] MEDS: metFORMIN XR 500 MG TAB PO SCH ×2 (08:22→16:52)
[2020-12-02] MEDS: Triamterene/Hydrochlorothiazide 37.5 mg/25 mg Tablet PO SCH (08:22)
[2020-12-02] MEDS: Lantus 1000 UNITS/10 ML VIAL SC SCH (08:23)
[2020-12-02] MEDS: Aspirin Chewable 81 MG TAB PO SCH (16:52)
[2020-12-02] MEDS: HumaLOG 300 UNITS/3 ML VIAL SC PRN (16:53)
[2020-12-02] MEDS: Zolpidem Tartrate 5 MG TAB PO SCH (20:06)
[2020-12-02] MEDS: Cyclobenzaprine 10 MG TAB PO SCH (20:06)
[2020-12-02] MEDS: Atorvastatin Calcium 40 MG TAB PO SCH (20:06)
[2020-12-02] MEDS: Enoxaparin Sodium 30 MG/0.3 ML SYRINGE SC SCH (20:06)
[2020-12-03] MEDS: Acetaminophen 500 MG TAB PO SCH ×4 (00:34→17:44)
[2020-12-03] MEDS: Levothyroxine Sodium 50 MCG TAB PO SCH (05:34)
[2020-12-03] MEDS: traMADol HCl 50 MG TAB PO PRN (05:38)
[2020-12-03] MEDS: Triamterene/Hydrochlorothiazide 37.5 mg/25 mg Tablet PO SCH (09:50)
[2020-12-03] MEDS: metFORMIN XR 500 MG TAB PO SCH ×2 (09:50→16:19)
[2020-12-03] MEDS: Carvedilol 6.25 MG TAB PO SCH ×2 (09:51→16:18)
[2020-12-03] MEDS: Cholecalciferol 1,000 UNITS (25 MCG) TAB PO SCH ×2 (09:51→19:54)
[2020-12-03] MEDS: Lantus 1000 UNITS/10 ML VIAL SC SCH (09:52)
[2020-12-03] MEDS: Polyethylene Glycol 3350 17 GM Packet PO SCH (09:52)
[2020-12-03] MEDS: Amlodipine 5 MG TAB PO SCH (09:58)
[2020-12-03] MEDS: Calcium Carbonate 600 MG + Vit D TAB PO SCH (09:59)
[2020-12-03] MEDS: Anastrozole 1 MG TAB PO SCH (10:00)
[2020-12-03] MEDS: Multivitamin W/ Minerals 1 TAB PO SCH (10:00)
[2020-12-03] MEDS: Loratadine 10 MG TAB PO SCH (10:00)
[2020-12-03] MEDS: Furosemide 20 MG TAB PO SCH (10:00)
[2020-12-03] MEDS: Gabapentin 300 MG CAP PO SCH ×3 (10:00→19:54)
[2020-12-03] MEDS: Empagliflozin 10 MG TAB PO SCH (10:01)
[2020-12-03] MEDS: Aspirin Chewable 81 MG TAB PO SCH (16:20)
[2020-12-03] MEDS: HumaLOG 300 UNITS/3 ML VIAL SC PRN (17:46)
[2020-12-03 17:49] VITALS: BP 133/60; TEMP 98.1
[2020-12-03] MEDS: Cyclobenzaprine 10 MG TAB PO SCH (19:55)
[2020-12-03] MEDS: Zolpidem Tartrate 5 MG TAB PO SCH (19:56)
[2020-12-03] MEDS: Atorvastatin Calcium 40 MG TAB PO SCH (19:56)
[2020-12-03] MEDS: Enoxaparin Sodium 30 MG/0.3 ML SYRINGE SC SCH (19:56)
== END 2020-12-03 20:10 | DRG 561 ==
LOC: BURMED 16:30
PROVIDERS: ADMIT Family Medicine; ATTEND Family Medicine
DX: S72.91XD Unspecified fracture of right femur, subsequent encounter for closed fracture with routine healing (principal); I25.10 Atherosclerotic heart disease of native coronary artery without angina pectoris; Z95.1 Presence of aortocoronary bypass graft; D72.829 Elevated white blood cell count, unspecified; G47.00 Insomnia, unspecified; E11.65 Type 2 diabetes mellitus with hyperglycemia; R23.2 Flushing; E78.5 Hyperlipidemia, unspecified; E03.9 Hypothyroidism, unspecified; Z85.3 Personal history of malignant neoplasm of breast; F32.9 Major depressive disorder, single episode, unspecified; Z79.82 Long term (current) use of aspirin; Z79.4 Long term (current) use of insulin; Z96.659 Presence of unspecified artificial knee joint; Z88.0 Allergy status to penicillin; Z88.2 Allergy status to sulfonamides; Z88.7 Allergy status to serum and vaccine; W18.30XD Fall on same level, unspecified, subsequent encounter; I11.0 Hypertensive heart disease with heart failure; I50.9 Heart failure, unspecified
CPT/HCPCS: 36415; 36416; 82274; 82565; 85014; 85018; 85027; 85049; 90715; J1650; J1815; J3101; Q0162

== ENCOUNTER 2021-07-02 21:53 | Emergency (ER) | payer BC, MEDICARE | END 2021-07-02 23:05 | disposition home or self-care (01) | LOC: BURERS 21:53 | DX: T83.091A Other mechanical complication of indwelling urethral catheter, initial encounter (principal); R33.9 Retention of urine, unspecified; E11.9 Type 2 diabetes mellitus without complications; I10 Essential (primary) hypertension | CPT/HCPCS: 51702 ==